=== PATIENT | female | born 1940 | race Caucasian/White ===

== ENCOUNTER 2017-02-10 12:46 | Inpatient (IN) ==
[2017-02-10] MEDS ORDERED: SODIUM CHLORIDE 0.9% 500 ML IV STA (13:01)
[2017-02-10] MEDS ORDERED: ONDANSETRON 4 MG/2 ML VIAL IV PRN (13:01)
[2017-02-10] MEDS ORDERED: ENOXAPARIN 60 MG/0.6 ML SYRINGE SUBCUT STA (13:06)
[2017-02-10] MEDS ORDERED: ASPIRIN 325 MG TABLET PO STA (13:06)
--- NOTE | 2017-02-10 13:13 | Emergency Department Note ---
Arnie Mcwilliams Brittany, am scribing for, and in the presence of, Dawit Nassar MD 13:07. Maday Mcwilliams James D, MD, personally performed the services described in this documentation, ascribed by Faye Gaitan in my presence, and it is both accurate and complete 311 . Arrival - Arrival Chief Complaint: Neuro Stated Complaint: Slurred speech ED Nursing Triage Note: Pt states that she started having some slurred speech and facial droop onset last night - pt states that it only lasted a few min and then started sgain this am - pt states that the s/s only lasted few minutes - pt states that she feels back to her normal self -pt denies weakness Mode of Arrival: Stretcher Limitations: No Limitations Source: Patient, RN Notes Reviewed Time Seen by Provider: 02/10/17 13:01 - History of Present Illness HPI Narrative: Patient is a 76 y/o female presenting to the ED by EMS for further evaluation of slurred speech and facial droop with an onset of last night. Patient reports that she has had two episodes of symptoms. Once last night lasting momentarily, and resolved. Occurred once again this morning, occurring only for a moment again, and resolved again. As of now patient feels back to her norm. She denies having any associated weakness through duration of episodes. She states that this morning she was on the couch and began to have dysphasia, but has now resolved . Reports having difficulty recalling total episode. Daughter states patient stood up and was about to say something, and had difficulty. Daughter reports patient is back to her baseline now. Current everyday smoker of a pack/ day. Contract Mail Carrier is Dr. Piña. Patient denies any melena or hematochezia. Patient is currently on Plavix. History of severe headaches, not at current. Patient has a past medical history of CHF, CAD, HTN, [place], PVD, [place], COPD, Dyslipidemia, COPD, Acute Renal Failure, Recurrent UTIs, GI Bleed Date of Last Menstrual Period: hyster Allergies/Adverse Reactions: Allergies Allergy/AdvReac Type Severity Reaction Status Date / Time codeine AdvReac Nausea Verified 05/25/16 15:58 Home Medications: Home Medications Medication Instructions Recorded Confirmed Type Escitalopram [Lexapro] 10 mg PO DAILY 05/08/16 10/04/16 History Ferrous Sulfate, Dried [Iron] 325 mg PO QOTHER DAY 05/08/16 10/05/16 History Isosorbide Mononitrate [Isosorbide 60 mg PO QOTHER DAY 05/08/16 10/04/16 History Mononitrate ER] Loratadine [Claritin] 10 mg PO QOTHER DAY 05/08/16 10/04/16 History Ranolazine [Ranexa] 500 mg PO BID 05/08/16 10/04/16 History Furosemide Tab [Lasix Tab] 20 mg PO BID tablet 05/28/16 10/04/16 Rx Pantoprazole Tab [Protonix Tab] 40 mg PO BID #60 tablet 05/28/16 10/04/16 Rx Polyethylene Glycol Powder 17 gm PO DAILY powder 05/28/16 10/05/16 Rx [Miralax] Potassium Chloride 10 meq PO DAILY #30 capsule 05/28/16 10/04/16 Rx Spironolactone [Aldactone] 12.5 mg PO DAILY tablet 05/28/16 10/05/16 Rx Atorvastatin Calcium 80 mg PO DAILY 10/04/16 10/04/16 History Carvedilol [Coreg] 25 mg PO BID 10/04/16 10/04/16 History Clopidogrel [Plavix] 75 mg PO DAILY 30 Days 10/07/16 Rx Furosemide Tab [Lasix Tab] 40 mg PO DAILY 30 Days 10/07/16 Rx Lisinopril [Prinivil] 2.5 mg PO DAILY 30 Days 10/07/16 Rx Review of System - Review of System 12 point system: reviewed and no additional remarkable complaints except as stated - Review of System Neurological: Present: as per HPI (dysphasia). Absent: weakness, numbness, paresthesias, confusion Medical,Surgical,& Family Hx - Medical History Cardio: History of: CHF, CAD, Hypertension, SD, PVD, Cardiovascular Problems ( pvd) Psychological: History of: Anxiety Disorders, Depression Neurology: History of: Dementia, Vertigo No history of: Seizures HEENT: History of: Ear Problem ([place]BILOXI), Eye Problem (laser surgery 3 months ago) Endocrine: History of: Dyslipidemia, Thyroid Disorder Respiratory: History of: COPD Renal: History of: Renal Failure (acute) Genitourinary: History of: Recurring Urinary Tract Infections Gastrointestinal: History of: Gastrointestinal Bleed, GI Problems (umbilical hernia) Musculoskeletal: History of: Back/Neck Problems (chronic lower back pain), Osteoporosis - Surgical History Cardiac Surgeries: Sugical HX of: Cardiac Catheterization (stents x5?), Cardiac Surgery (cabg x3) Abdominal Surgeries: Surgical HX of: Cholecystectomy, Colonoscopy, EGD Reproductive Surgeries: Surgical HX of;: Hysterectomy - Family History Family History: Reports;: Family Diabetes, Family Heart Disease - Social History Smoking Status: Never smoker Frequency of Alcohol Use: None Type of Drug Use: None Exam Vital Signs: Vital Signs Temperature 97.3 F L 02/10/17 12:57 Pulse Rate 84 02/10/17 12:57 Respiratory Rate 20 02/10/17 12:57 Blood Pressure 138/81 02/10/17 12:57 O2 Sat by Pulse Oximetry 99 02/10/17 12:52 GENERAL: This is a well-nourished well-developed white female in no apparent distress. VITAL SIGNS: Reviewed HEENT: Head is atraumatic and normocephalic. Pupils are equal round react to light. Extraocular movements are intact. Oropharynx is benign with moist mucous membranes. NECK: Neck is soft and supple without tenderness. There are no masses. There is no lymphadenopathy. No carotid bruit LUNGS: Lungs are clear to auscultation. Chest rises symmetrically. There is no chest wall tenderness. CV: Heart is regular rate and rhythm without murmurs rubs or gallops. ABDOMEN: Abdomen is soft, nontender to palpation. There are no abdominal abnormal masses palpated. There is no organomegaly. Bowel sounds are present and active. SKIN: Skin is warm and dry. No rash. EXTREMITIES: Patient has full range of motion without tenderness. There is no pedal edema. NEUROLOGIC: Awake alert and oriented 4. Cranial nerves II through XII are grossly intact. Motor is 5 over 5 in all extremities bilaterally. Deep tendon reflexes are 2+ and bilaterally equal. Course - Consultations Consultation #1: Discussed with hospitalist. Patient will be admitted to their service. Time: 13:52 Results - Labs CBC & BMP: 02/10/17 13:31 Lab Results: I have reviewed the patients labs - EKG EKG results: interpreted by ERMD - Impressions EKG: Normal sinus rhythm with rate of 70, nonspecific ST-T wave changes, left ventricular hypertrophy. Normal axis. - Diagnostic Findings Procedure: Chest x-ray: image reviewed by me (Old median sternotomy. Mild cardiomegaly, right pleural effusion.), CT: image reviewed by me (CT head: Cerebral atrophy. No acute intracranial lesion or hemorrhage.) Disposition Clinical Impression: TIA (transient ischemic attack), Coronary artery disease Case discussed with: patient, patient's family Disposition: Still a Patient Condition: Stable Time of Disposition: 13:52
[2017-02-10 13:44] LABS: Basophils # 0.1 10*3/uL (0.0-0.2); Basophils % 1.5 % (0.0-0.8); Eosinophils # 0.7 10*3/uL (0.0-0.87); Eosinophils % 16.5 % (0.00-10.9); Hematocrit 36.9 VOL% (35.7-47.0); Hemoglobin 11.8 GM/DL (12.0-16.0); Immature Granulocytes % 0.3 %; Immature Granulocytes Absolute 0.01 #; Lymphocytes # 0.7 10*3/uL (1.4-4.0); Mean Corpuscular Hemoglobin 31 PG (27-34); Mean Corpuscular Volume 96.1 FL (87-102); Mean Platelet Volume 11.7 FL (9.6-12.0); Monocytes # 0.4 10*3/uL (0.11-0.8); Monocytes % 9.2 % (1.7-12.7); Neutrophils # 2.2 10*3/uL (1.4-7.4); Neutrophils % 55.5 % (38.7-73.9); Platelet Count 206 T/CUMM (130-400); Red Blood Count 3.84 MC/CUMM (3.8-5.5); Red Cell Distribution Width 14.3 % (9.3-17.3); White Blood Count 3.9 T/CUMM (4-12)
--- NOTE | 2017-02-10 13:50 | CT Report ---
Referring physician: Dawit Nassar Exam: CT brain without contrast Date: 02/10/2017 Comparison: 05/11/2016 Reason: Hemiparesis Technique: Axial images of the head were obtained without the use of contrast. Total DLP was 1073.1 mGy*cm. Findings: The ventricles remain minimally dilated with no midline displacement. Persistent diffuse atrophy and T2 hyperintensities. There is no evidence of an acute infarction, recent intracranial hemorrhage or abnormal mass effect. The osseous structures appear intact. Residual 14 mm scalp lesion in the left frontal location. Arterial calcifications are noted. The visualized paranasal sinuses are clear. Persistent fluid in the right mastoid air cells. Impression: No acute intracranial abnormality is identified. Diffuse atrophy and microvascular disease. Residual 14 mm scalp lesion in the left frontal location. Persistent nonspecific fluid in right mastoid air cells. The CT exam was performed using one or more of the following dose reduction techniques: Automated exposure control and adjustment of the mA and/or kV according to patient size. PROCEDURE INTERPRETED AT [facility] DEPARTMENT OF RADIOLOGY Final Report Signed by: Dr. Halina Jewell
[2017-02-10] MEDS ORDERED: ONDANSETRON 4 MG/2 ML VIAL ONE (13:56)
[2017-02-10] MEDS ORDERED: ENOXAPARIN 60 MG/0.6 ML SYRINGE ONE (13:56)
[2017-02-10] MEDS ORDERED: ASPIRIN 325 MG TABLET ONE (13:56)
--- NOTE | 2017-02-10 13:56 | XRay Report ---
Exam: XR chest 1V Date: 02/10/2017 1:01 PM Comparison: 10/05/2016 Indication: Cardiomegaly Technique:[AP chest] Findings: Stable cardiomegaly impression prior median sternotomy. Coronary artery stents are noted. Chronic scarring in the lungs with decreased parenchymal findings except that the right lung base with blunting of the right costophrenic angle. Residual atelectasis. Symmetric pleural thickening at the lung apices. Stable mediastinum with degenerative changes. Prior cholecystectomy. Impression: Status post median sternotomy with chronic scarring. Coronary stents are noted with persistent cardiomegaly. Increased density in the right costophrenic angle which can be seen with small right pleural effusion with adjacent minimal atelectasis/edema. PROCEDURE INTERPRETED AT [facility] DEPARTMENT OF RADIOLOGY Final Report Signed by: Dr. Halina Jewell
[2017-02-10 14:00] LABS: PT Patient Result 10.5 SECS; Partial Thromboplastin Time 25.3 SECS (0-40)
[2017-02-10 14:07] LABS: Alanine Aminotransferase 23 U/L (13-56); Albumin 3.4 G/DL (3.4-5.0); Alkaline Phosphatase 280 U/L (45-117); Aspartate Amino Transferase 32 U/L (0-37); Blood Urea Nitrogen 18 MG/DL (7-18); Glucose 99 MG/DL (74-106); Osmolality,Calculated 293.4 MOS/KG (273-304); Potassium 3.9 MMOL/L (3.5-5.1); Sodium 147 MMOL/L (136-145); Troponin I Only 0.774 NG/ML (0.00-0.045)
[2017-02-10] MEDS ORDERED: BISACODYL 5 MG TABLET PO PRN (14:10)
[2017-02-10] MEDS ORDERED: DOCUSATE SODIUM 100 MG CAPSULE PO PRN (14:10)
[2017-02-10] MEDS ORDERED: ACETAMINOPHEN 325 MG TABLET PO PRN (14:10)
[2017-02-10 14:16] LABS: Apearance,Urine CLEAR (Clear); Bacteria,Urine Occasional /HPF (Few); Bilirubin,Urine Negative (Negative); Blood, Urine Negative (Negative); Glucose,Urine (UA) Negative (Negative); Hyaline Casts,Urine 1 /LPF (0-3); Ketones,Urine Negative (Negative); Nitrite,Urine Negative (Negative); Protein,Urine Negative; Squamous Epithelial Cell,Urine Occasional /HPF (0-10); Urine Color Straw (Yellow); Urine Specific Gravity 1.004 (1.001-1.035); Urine Urobilinogen < 2.0 EU/DL (0.2-1.0)
--- NOTE | 2017-02-10 14:24 | Ultrasound Report ---
Exam: Carotid ultrasound Date: 02/10/2017 Comparison: None Technique: Duplex scans of the carotid and vertebral arteries using B-mode/Villafuerte scale imaging and Doppler spectral analysis and color flow. Reason: TIA Findings: The right ICA measures 6.1 mm in diameter and the left ICA measures 4.8 mm in diameter. Color-flow documented in the visualized arteries. The peak systolic velocities are as follows: Right CCA: 59.9 cm/s Right ICA: 45.6 cm/s Right ECA: 133.1 cm/s Left CCA: 42.4 cm/s Left ICA: 90.7 cm/s Left ECA: 63.2 cm/s The peak systolic ICA/CCA velocity ratios are as follows: 0.8 on the right and 2.2 on the left. Antegrade flow is present in both vertebral arteries. Impression:[Velocity measurements fall within the less than 50% stenosis range in both internal carotid arteries with heterogeneous plaque formation. However the left ICA/CCA ratio is minimally elevated which indicates that this stenosis may be more critical. MRA may be helpful for further evaluation.] The Society of Radiologists in Ultrasound consensus conference criteria was used. The Ultrasound images were captured and stored. PROCEDURE INTERPRETED AT [facility] DEPARTMENT OF RADIOLOGY Final Report Signed by: Dr. Halina Jewell
[2017-02-10 14:35] LABS: Barbiturates Screen,Urine Negative (Negative); Benzodiazepines Screen,Urine Negative (Negative); Cannabinoid Screen,Urine Negative (Negative); Opiate Screen,Urine Negative (Negative); Phencyclidine Screen,Urine Negative (Negative)
[2017-02-10 14:36] LABS: Risk Ratio 2.84; VLDL CHOLESTEROL 23.4 MG/DL
--- NOTE | 2017-02-10 14:36 | EKG Report ---
Stationary ECG Study [facility] ER Test Date: 02/10/2017 1:00:14 PM Pat Name: PAUL MENDOZA Department: Room: Gender: F Director Learning And Development: : 1940 Requested by: Dawit Mauro Order Number: [id number] Reading MD: FABIENNE CASTILLO Intervals Ducor Rate: 70 P: 47 IL: 187 QRS: 49 QRSD: 104 T: 121 QT: 427 QTc: 448 Interpretive Statements SINUS RHYTHM LEFT VENTRICULAR HYPERTROPHY AND ST-T CHANGE Electronically Signed On 02-13-17 11:02:19 CDT by FABIENNE CASTILLO [email or web address]
[2017-02-10 17:01] LABS: Eosinophils 22 % (0-10); Lymphocytes 11 % (20-55); Segmented Neutrophils 60 % (50-85); Total Cells Counted 100
--- NOTE | 2017-02-10 18:22 | Hospitalist History & Physical ---
Assessment and Plan (1) TIA (transient ischemic attack) Status: Acute Assessment and plan: Symptoms resolved before arrival to ER. Will continue to monitor patient. Neuro consult. Routine neuro checks. Ct showed no acute changes. Current Visit: Yes (2) Atrial fibrillation Status: Chronic Assessment and plan: Chronic issue for patient. Pt reported to Dr. Jiménez feelings of "palpitations" . Cardiology consulted for recs of anticoag therapy for this chronic condition. Pt in NSR as of most recent EKG Current Visit: No Qualifiers: History of Present Illness Chief complaint: TIA History of present illness: Ms. Allison is a 76 y/o female presenting to the ED by EMS for further evaluation of slurred speech and facial droop. Patient reports that she has had two episodes of these symptoms. Once last night lasting momentarily, and then resolved. Pt stated that she "thought nothing of it". The second episode was this morning, occurring only for a short moment again while she was watching a TV show. Again,this issue resolved but she also experienced dysphasia, which has now resolved. After this, EMS was called by her grandson. The patient denies having any vision loss or weakness during these episodes. Pt is able to answer questions but does have some intermittent confusion. Daughter was at bedside and reports patient is back to her baseline. History of severe headaches, not at current. Patient has a past medical history of CHF, CAD, HTN, [place], PVD, [place], COPD, Dyslipidemia, COPD, headaches, Acute Renal Failure, Recurrent UTIs, smoking, and GI Bleed. Pt. will be admitted to the hospitalist service for observation. Neuro will be consulted for recs. Plavix to be restarted but asa held because of previous GI bleed. CT revealed no acute changes. Pt. will be monitored. Home Medications Medication Instructions Recorded Confirmed Type Escitalopram [Lexapro] 10 mg PO QAM 05/08/16 02/10/17 History Ferrous Sulfate, Dried [Iron] 325 mg PO QOTHER DAY 05/08/16 02/10/17 History Isosorbide Mononitrate [Isosorbide 60 mg PO QOTHER DAY 05/08/16 02/10/17 History Mononitrate ER] Loratadine [Claritin] 10 mg PO QOTHER DAY 05/08/16 02/10/17 History Ranolazine [Ranexa] 500 mg PO BID 05/08/16 02/10/17 History Atorvastatin Calcium 80 mg PO QAM 10/04/16 02/10/17 History Carvedilol [Coreg] 25 mg PO BID 10/04/16 02/10/17 History Clopidogrel [Plavix] 75 mg PO QAM 02/10/17 02/10/17 History Furosemide Tab [Lasix Tab] 40 mg PO QAM 02/10/17 02/10/17 History Lisinopril [Prinivil] 2.5 mg PO QAM 02/10/17 02/10/17 History Polyethylene Glycol Powder 17 gm PO DAILY PRN 02/10/17 02/10/17 History [Miralax] Potassium Chloride 10 meq PO QAM 02/10/17 02/10/17 History Allergies Allergy/AdvReac Type Severity Reaction Status Date / Time codeine AdvReac Nausea Verified 05/25/16 15:58 Medical,Surgical,& Family Hx - Medical History Cardio: History of: CHF, CAD, Hypertension, [place], PVD, Cardiovascular Problems ( pvd) Psychological: History of: Anxiety Disorders, Depression Neurology: History of: Dementia, Vertigo No history of: Seizures HEENT: History of: Ear Problem ([place]), Eye Problem (laser surgery 3 months ago) Endocrine: History of: Dyslipidemia, Thyroid Disorder Respiratory: History of: COPD Renal: History of: Renal Failure (acute) Genitourinary: History of: Recurring Urinary Tract Infections Gastrointestinal: History of: Gastrointestinal Bleed, GI Problems (umbilical hernia) Musculoskeletal: History of: Back/Neck Problems (chronic lower back pain), Osteoporosis - Surgical History Cardiac Surgeries: Sugical HX of: Cardiac Catheterization (stents x5?), Cardiac Surgery (cabg x3) Abdominal Surgeries: Surgical HX of: Cholecystectomy, Colonoscopy, EGD Reproductive Surgeries: Surgical HX of;: Hysterectomy - Family History Family History: Reports;: Family Diabetes, Family Heart Disease - Social History Smoking Status: Former smoker Frequency of Alcohol Use: None Type of Drug Use: None - EENT Eyes: Absent: loss of vision - Gastrointestinal Gastrointestinal: Absent: abdominal pain - Genitourinary Genitourinary: Absent: difficulty urinating - Neurological Neurological: Present: as per HPI, abnormal speech (pt reports slight slur of speech at home ), numbness (pt reported being unable to talk this am.) Exam - Constitutional Vitals: Period Temp Pulse Resp BP Sys/Kumar Pulse Ox Last 24 Hr 97.2 F 59-68 18-20 115-137/58-80 100-100 General appearance: normal weight, no acute distress - Head Head exam: Present: normal inspection, normocephalic - Eye Pupils: Present: MIMI - Respiratory Respiratory exam: Present: clear to auscultation bilaterally - Cardiovascular Cardiovascular exam: Present: regular rate and rhythm - GI/Abdominal GI/Abdominal exam: Present: normal bowel sounds, soft. Absent: tenderness - Extremities Exam Extremities exam: Present: normal inspection, normal capillary refill, full ROM - Neurological Exam Neurological exam: Present: alert, oriented X3 (intermittent confusion), other ( pt has trouble answering some questions; intermittent confusion but mostly alert ) - Psychiatric Psychiatric exam: Present: normal affect, normal mood - Skin Skin exam: Present: normal color, warm, dry Results - Labs CBC & BMP: 02/10/17 13:31 02/10/17 13:31 Lab Results: I have reviewed the past 24 hour labs - EKG EKG shows: sinus rhythm - Diagnostic Findings Procedure: CT: report reviewed by me (no acute changes) Quality Measures - Stroke Symptom Onset Unknown: No
--- NOTE | 2017-02-10 19:42 | ECHO Report ---
Malina Allison Exam Date: 02/10/2017 14:34 Referring Physician: Technologist: Johanna MACKAY Age: 76 Ht (in): Wt (lb): Gender: F Exam Location: [facility] Echo Indications: TIA, slurred speech BP: / HR: Rhythm: Sinus Technical Quality: IMPRESSIONS Moderately decreased left ventricular systolic function, left ventricular ejection fraction is estimated at 35-40%. Bilateral atrial enlargement.Mildly thickened mitral valve with mild mitral regurgitation. Mild aortic valve sclerosis without stenosis. Mild tricuspid valve regurgitation. MEASUREMENTS (Male / Female) Normal Values 2D ECHO LV Diastolic Diameter PLAX 5.0 cm 4.2 - 5.9 / 3.9 - 5.3 cm LV Systolic Diameter PLAX 3.9 cm LV Fractional Shortening PLAX 21.3 % IVS Diastolic Thickness 1.5 cm 0.6 - 1.0 / 0.6 - 0.9 cm LVPW Diastolic Thickness 1.3 cm 0.6 - 1.0 / 0.6 - 0.9 cm RV Internal Dim ED PLAX 2.0 cm Aortic Root Diameter 2.5 cm LA Systolic Diameter LX 4.3 cm 3.0 - 4.0 / 2.7 - 3.8 cm DOPPLER TR Peak Velocity 217.0 cm/s TR Peak Gradient 18.8 mmHg FINDINGS Left Ventricle Moderately decreased left ventricular systolic function, left ventricular ejection fraction is estimated at 35-40%. Right Ventricle Grossly normal right ventricular size. Right Atrium The right atrium is mildly enlarged. Left Atrium Moderately increased left atrial diameter. Mitral Valve Mildly thickened mitral valve with mild mitral regurgitation. Aortic Valve Mild aortic valve sclerosis without stenosis. Tricuspid Valve Morphologically normal tricuspid valve. Mild tricuspid valve regurgitation. Pulmonic Valve Morphologically normal pulmonic valve. Pericardium No pericardial effusion. Aorta Normal size aortic root and proximal ascending aorta. Sal Carlos (Electronically Signed) Final Date: 10 February 2017 19:41
[2017-02-11 04:53] LABS: Basophils % 1.1 % (0.0-0.8); Eosinophils # 0.5 10*3/uL (0.0-0.87); Eosinophils % 13.2 % (0.00-10.9); Hematocrit 33.2 VOL% (35.7-47.0); Hemoglobin 10.3 GM/DL (12.0-16.0); Lymphocytes # 0.6 10*3/uL (1.4-4.0); Mean Corpuscular Hemoglobin 30 PG (27-34); Monocytes # 0.4 10*3/uL (0.11-0.8); Monocytes % 9.8 % (1.7-12.7); Neutrophils # 2.3 10*3/uL (1.4-7.4); Neutrophils % 60.9 % (38.7-73.9); Platelet Count 148 T/CUMM (130-400); Red Blood Count 3.46 MC/CUMM (3.8-5.5); Red Cell Distribution Width 14.2 % (9.3-17.3); White Blood Count 3.8 T/CUMM (4-12)
[2017-02-11 05:21] LABS: Calcium 8.4 MG/DL (8.5-10.1); Magnesium 2.2 MG/DL (1.8-2.4); Osmolality,Calculated 294.3 MOS/KG (273-304); Potassium 3.4 MMOL/L (3.5-5.1)
[2017-02-11 05:25] LABS: Albumin 2.8 G/DL (3.4-5.0); Bilirubin,Total 1.3 MG/DL (0.2-1.0); Calcium 8.3 MG/DL (8.5-10.1); Osmolality,Calculated 296.1 MOS/KG (273-304); Potassium 3.5 MMOL/L (3.5-5.1); Total Protein 5.9 G/DL (6.4-8.3)
[2017-02-11 05:40] LABS: Eosinophils 13 % (0-10); Hypochromasia 1+; Lymphocytes 14 % (20-55); Metamyelocytes 1 %; Platelet Estimate Decreased; Segmented Neutrophils 63 % (50-85); Total Cells Counted 100
[2017-02-11] MEDS: PANTOPRAZOLE 40 MG TABLET PO SCH (08:45)
[2017-02-11] MEDS: CLOPIDOGREL 75 MG TABLET PO SCH (08:45)
--- NOTE | 2017-02-11 12:11 | Cardiology Consult Note ---
<Kassandra Babb - Last Filed: 02/11/17 13:00> Assessment and Plan - Time spent with patient Time spent with patient: Greater than 30 minutes (1) TIA (transient ischemic attack) Status: Acute Assessment and plan: Facial droop and slurred speech have resolved. Head CT did not reveal any acute intracranial findings. Neurology has been consulted. Current Visit: Yes (2) Atrial fibrillation Status: Chronic Assessment and plan: Patient has a history of atrial fibrillation. This was first diagnosed in September 2016. At that time, patient was on a candidate for anticoagulation due to recent history of severe GI bleed in April 2016. Hemoglobin at that time was noted to be 3.8. Patient reports having episodes of palpitations/heart racing presently 2 times a week and it appears that she has had a TIA. Because of this, patient will need chronic anticoagulation with Coumadin or NOAC. Will need to monitor patient's H&H closely. Will await neurology's recommendations. Current Visit: No (3) Coronary artery disease Status: Chronic Current Visit: Yes (4) Cardiomyopathy, ischemic Status: Chronic Assessment and plan: Echo yesterday revealed moderately decreased left ventricular systolic function with ejection fraction estimated at 35-40%. Bilateral atrial enlargement noted with mild MR. This has improved since patient's last echocardiogram September 2016 which revealed LVEF 25%, grade 3-4 diastolic dysfunction. Current Visit: No (5) Chronic renal insufficiency, stage III (moderate) Status: Chronic Assessment and plan: Creatinine is 1.3. This appears to be patient's baseline. Current Visit: No (6) History of coronary artery bypass graft Status: Chronic Current Visit: No (7) Peptic ulcer disease with hemorrhage Status: Chronic Assessment and plan: H&H has been stable this admission. We will continue to monitor this closely. Current Visit: No (8) Hypertension Status: Acute Assessment and plan: This is been relatively well controlled this admission. No need to adjust medications at this time. Current Visit: Yes History of Present Illness - Data of Consult Patient: known to practice within the last 3 years Consult date: 02/11/17 Requesting Physician: Elizabeth Johnson - Consult Narrative Reason for consult: Management of anticoagulation History of present illness: Ms. Allison is a 75 year old female who is usually followed by Dr. Mcclendon. Her primary care provider is Dr. Duran Eid. She presented to the ER yesterday with facial droop and slurred speech. She has a history of coronary artery disease, status post CABG, ischemic cardiomyopathy, GERD, hyperlipidemia , paroxysmal atrial fibrillation, GI bleeds from an ulcer and hypertension. Patient's most recent stent was placed approximately 2 years ago. Patient was admitted to the hospital in May 2016 with GI bleeding from multiple peptic ulcers. During interview, patient reports having multiple episodes of GI bleeding requiring blood transfusion in the past. Hemoglobin of 3.8 was noted. At that time patient was taking multiple nonsteroidals. It does not appear that she was on chronic anticoagulation at that time. Patient was also admitted September 2016 and diagnosed with an NSTEMI and new onset atrial fibrillation. At that time, NSTEMI was medically managed. Plavix was initiated and aspirin was discontinued due to fear of GI bleed. Ranexa was also initiated. Patient was not a candidate for NOAC or coumadin at that time due to recent GI bleeding requiring blood transfusion. Patient was admitted to [facility] with possible TIA after experiencing facial droop and slurred speech yesterday. She tells me that this lasted approximately 15-[address] revealed no acute intracranial abnormality. Carotid ultrasound reveals less than 50% stenosis bilaterally. Patient denies any chest pain, heaviness and tightness. She also denies shortness of breath, diaphoresis and nausea. Patient was admitted under hospitalist's service and housed on telemetry. Cardiology has been consulted for recommendations on anticoagulation for paroxysmal atrial fibrillation. Of note, patient confirms episodes of palpitations/heart racing at least 2 times a week. She reports that these usually last 5-20 minutes and usually go away with rest. Patient was seen and examined on telemetry. She is currently resting in bed in no acute distress. Not requiring oxygen. Facial droop and slurred speech has fully resolved. No weakness is noted. Neurology has been consulted to further evaluate TIA. Patient denies any palpitations/heart racing this admission. H& H is stable this admission at 10.3 and 33.2. Creatinine is mildly elevated at 1.3. Potassium of 3.4 is noted, will order replacement protocol. Magnesium is stable at 2.2. Telemetry has been reviewed. No episodes of atrial fibrillation have been noted. Patient is currently in a normal sinus rhythm with heart rates in the 60s without any overt arrhythmias or ectopy noted. EKG does not reveal any acute changes when compared to previous EKGs. Will continue to monitor patient on telemetry. Patient will need chronic anticoagulation with Coumadin or NOAC. Will need to monitor patient's H&H closely. Will await neurology's recommendations. Echo yesterday revealed moderately decreased left ventricular systolic function with ejection fraction estimated at 35-40%. Bilateral atrial enlargement noted with mild MR. Active Medications Acetaminophen (Tylenol Tab) 650 mg PO Q4H PRN PRN Reason: Fever, Headache, Mild Pain Bisacodyl (Dulcolax Tab) 10 mg PO DAILY PRN PRN Reason: Constipation Clopidogrel Bisulfate (Plavix) 75 mg PO DAILY [facility] Last Admin: 02/11/17 08:45 Dose: 75 mg Docusate Sodium (Colace Cap) 100 mg PO BID PRN PRN Reason: Constipation Ondansetron HCl (Zofran Inj) 4 mg IV Q6H PRN PRN Reason: Nausea/Vomiting Last Admin: 02/10/17 14:29 Dose: 4 mg Pantoprazole Sodium (Protonix Tab) 40 mg PO DAILY [facility] Last Admin: 02/11/17 08:45 Dose: 40 mg Potassium Chloride (K Dur) 20 meq PO .PER PROTOCOL PRN; Protocol PRN Reason: Per Protocol CC: Tal Jiménez MD - Home Medications and Allergies Home Medications: Home Medications Medication Instructions Recorded Confirmed Type Escitalopram [Lexapro] 10 mg PO QAM 05/08/16 02/10/17 History Ferrous Sulfate, Dried [Iron] 325 mg PO QOTHER DAY 05/08/16 02/10/17 History Isosorbide Mononitrate [Isosorbide 60 mg PO QOTHER DAY 05/08/16 02/10/17 History Mononitrate ER] Loratadine [Claritin] 10 mg PO QOTHER DAY 05/08/16 02/10/17 History Ranolazine [Ranexa] 500 mg PO BID 05/08/16 02/10/17 History Atorvastatin Calcium 80 mg PO QAM 10/04/16 02/10/17 History Carvedilol [Coreg] 25 mg PO BID 10/04/16 02/10/17 History Clopidogrel [Plavix] 75 mg PO QAM 02/10/17 02/10/17 History Furosemide Tab [Lasix Tab] 40 mg PO QAM 02/10/17 02/10/17 History Lisinopril [Prinivil] 2.5 mg PO QAM 02/10/17 02/10/17 History Polyethylene Glycol Powder 17 gm PO DAILY PRN 02/10/17 02/10/17 History [Miralax] Potassium Chloride 10 meq PO QAM 02/10/17 02/10/17 History Allergies/Adverse Reactions: Allergies Allergy/AdvReac Type Severity Reaction Status Date / Time codeine AdvReac Nausea Verified 05/25/16 15:58 - Constitutional Constitutional: Absent: chills, fatigue, fever(s), frequent falls, lethargy, malaise - Cardiovascular Cardiovascular: Present: as per HPI, palpitations. Absent: chest pain at rest, chest pain with activity, diaphoresis, dyspnea, edema, radiating jaw, neck or arm pain - Respiratory Respiratory: Absent: cough, dyspnea, pain on inspiration, change in phlegm color - Gastrointestinal Gastrointestinal: Absent: abdominal pain, change in bowel habits, coffee ground emesis, constipation, cramping, diarrhea, heartburn, hematemesis, hematochezia, loose stools, nausea, vomiting - Neurological Neurological: Present: abnormal speech, behavioral changes, other (Facial droop) . Absent: syncope Medical,Surgical,& Family Hx - Medical History Cardio: History of: Cardiac Dysrhythmia, CHF, CAD, Hypertension, [place] Psychological: History of: Anxiety Disorders, Depression Neurology: History of: Dementia, Vertigo No history of: Seizures HEENT: History of: Ear Problem ([place]), Eye Problem (laser surgery 3 months ago) Endocrine: History of: Dyslipidemia Respiratory: History of: COPD Renal: History of: Renal Failure (Renal insufficiency) Genitourinary: History of: Recurring Urinary Tract Infections Gastrointestinal: History of: Gastrointestinal Bleed, GI Problems (umbilical hernia) Musculoskeletal: History of: Back/Neck Problems (chronic lower back pain), Osteoporosis - Surgical History Cardiac Surgeries: Sugical HX of: Cardiac Catheterization (stents x5?), Cardiac Surgery (cabg x3) Abdominal Surgeries: Surgical HX of: Cholecystectomy, Colonoscopy, EGD Reproductive Surgeries: Surgical HX of;: Hysterectomy - Family History Family History: Reports;: Family Diabetes Denies;: Family Heart Disease - Social History Smoking Status: Current every day smoker Frequency of Alcohol Use: None Type of Drug Use: None Physical Examination Vital Signs Temp Pulse Resp BP Pulse Ox 97.3 F L 84 20 138/81 99 02/10/17 12:52 02/10/17 12:52 02/10/17 12:52 02/10/17 12:52 02/10/17 12:52 General: Present: Appears Well, No Apparent Distress HEENT: Present: Normocephaly Neck: Present: Supple Neck, Midline Trachea, No JVD/HJR, No Masses, No Bruit Cardiac: Present: Reg Rate and Rhythm, Regular Rate, Regular Rhythm, S1/S2, No Murmur. Absent: Gallop Lungs: Present: Normal Exam, Clear Ascult./Percussion, Normal Breath Sounds, No Wheeze, Rales, Rhonchi. Absent: Oxygen Neuro: Present: Grossly Intact Abdomen: Present: Soft, Active Bowel Sounds, No Masses, No Pulsations/Bruits, Non-Tender. Absent: Firm, Distended Skin: Present: Clear. Absent: Rash, Suspicious Lesions, Ulceration Extremities: Present: Normal Gait, No Clubbing, No Cyanosis, No Edema, Normal Upper Extr. Pulses, Other ( lower extremity pulses 1+) Result/EKG - Labs CBC & BMP: 02/11/17 04:28 02/11/17 04:28 Lab Results: I have reviewed the past 24 hour labs Labs: Laboratory Results - last 24 hr 02/10/17 02/10/17 02/11/17 16:34 19:56 04:28 WBC 3.8 L RBC 3.46 L Hgb 10.3 L Hct 33.2 L MCV 96.0 MCH 30 MCHC 31.0 L RDW 14.2 Plt Count 148 D MPV 12.0 Neut % (Auto) 60.9 Lymph % (Auto) 15.0 L [place] % (Auto) 9.8 Eos % (Auto) 13.2 H Baso % (Auto) 1.1 H Neut # (Auto) 2.3 Lymph # (Auto) 0.6 L [place] # (Auto) 0.4 Eos # (Auto) 0.5 Baso # (Auto) 0.0 Total Counted 100 Immature Gran % 0.0 Nucleated RBC % 0.0 Immature Gran # 0.00 Segmented Neutrophils 63 Lymphocytes 14 L Monocytes 9 Eosinophils 13 H Metamyelocytes 1 Nucleated RBCs # 0.00 Platelet Estimate Decreased Hypochromasia 1+ Sodium Potassium Chloride Carbon Dioxide Anion Gap BUN Creatinine GFR Calculation BUN/Creatinine Ratio Glucose Calculated Osmolality Calcium Magnesium Total Bilirubin AST ALT Alkaline Phosphatase Troponin I 0.640 H 0.503 H D Total Protein Albumin Globulin Albumin/Globulin Ratio 02/11/17 02/11/17 04:28 04:28 WBC RBC Hgb Hct MCV MCH MCHC RDW Plt Count MPV Neut % (Auto) Lymph % (Auto) [place] % (Auto) Eos % (Auto) Baso % (Auto) Neut # (Auto) Lymph # (Auto) [place] # (Auto) Eos # (Auto) Baso # (Auto) Total Counted Immature Gran % Nucleated RBC % Immature Gran # Segmented Neutrophils Lymphocytes Monocytes Eosinophils Metamyelocytes Nucleated RBCs # Platelet Estimate Hypochromasia Sodium 149 H 148 H Potassium 3.5 3.4 L Chloride 111 H 111 H Carbon Dioxide 27 28 Anion Gap 14.5 12.4 BUN 18 19 H Creatinine 1.30 H 1.30 H GFR Calculation 35 35 BUN/Creatinine Ratio 13.00 14.00 Glucose 88 89 Calculated Osmolality 296.1 294.3 Calcium 8.3 L 8.4 L Magnesium 2.2 Total Bilirubin 1.30 H AST 34 ALT 21 Alkaline Phosphatase 232 H Troponin I Total Protein 5.9 L Albumin 2.8 L Globulin 3.1 Albumin/Globulin Ratio 0.9 L Quality Measures - Stroke Symptom Onset Unknown: No <Sal Carlos - Last Filed: 02/11/17 14:21> History of Present Illness - Consult Narrative History of present illness: I have seen, interviewed, examined the patient and reviewed his chart and discussed the case with the mid-level provider and agree with the plan as outlined in the note. CC: Tal Jiménez MD 12 point system: reviewed and no additional remarkable complaints except as stated Physical Examination Vital Signs Temp Pulse Resp BP Pulse Ox 97.3 F L 84 20 138/81 99 02/10/17 12:52 02/10/17 12:52 02/10/17 12:52 02/10/17 12:52 02/10/17 12:52 Result/EKG - Labs CBC & BMP: 02/11/17 04:28 02/11/17 04:28 Lab Results: I have reviewed the past 24 hour labs Labs: Laboratory Results - last 24 hr 02/10/17 02/10/17 02/11/17 16:34 19:56 04:28 WBC 3.8 L RBC 3.46 L Hgb 10.3 L Hct 33.2 L MCV 96.0 MCH 30 MCHC 31.0 L RDW 14.2 Plt Count 148 D MPV 12.0 Neut % (Auto) 60.9 Lymph % (Auto) 15.0 L [place] % (Auto) 9.8 Eos % (Auto) 13.2 H Baso % (Auto) 1.1 H Neut # (Auto) 2.3 Lymph # (Auto) 0.6 L [place] # (Auto) 0.4 Eos # (Auto) 0.5 Baso # (Auto) 0.0 Total Counted 100 Immature Gran % 0.0 Nucleated RBC % 0.0 Immature Gran # 0.00 Segmented Neutrophils 63 Lymphocytes 14 L Monocytes 9 Eosinophils 13 H Metamyelocytes 1 Nucleated RBCs # 0.00 Platelet Estimate Decreased Hypochromasia 1+ Sodium Potassium Chloride Carbon Dioxide Anion Gap BUN Creatinine GFR Calculation BUN/Creatinine Ratio Glucose Calculated Osmolality Calcium Magnesium Total Bilirubin AST ALT Alkaline Phosphatase Troponin I 0.640 H 0.503 H D Total Protein Albumin Globulin Albumin/Globulin Ratio 02/11/17 02/11/17 04:28 04:28 WBC RBC Hgb Hct MCV MCH MCHC RDW Plt Count MPV Neut % (Auto) Lymph % (Auto) [place] % (Auto) Eos % (Auto) Baso % (Auto) Neut # (Auto) Lymph # (Auto) [place] # (Auto) Eos # (Auto) Baso # (Auto) Total Counted Immature Gran % Nucleated RBC % Immature Gran # Segmented Neutrophils Lymphocytes Monocytes Eosinophils Metamyelocytes Nucleated RBCs # Platelet Estimate Hypochromasia Sodium 149 H 148 H Potassium 3.5 3.4 L Chloride 111 H 111 H Carbon Dioxide 27 28 Anion Gap 14.5 12.4 BUN 18 19 H Creatinine 1.30 H 1.30 H GFR Calculation 35 35 BUN/Creatinine Ratio 13.00 14.00 Glucose 88 89 Calculated Osmolality 296.1 294.3 Calcium 8.3 L 8.4 L Magnesium 2.2 Total Bilirubin 1.30 H AST 34 ALT 21 Alkaline Phosphatase 232 H Troponin I Total Protein 5.9 L Albumin 2.8 L Globulin 3.1 Albumin/Globulin Ratio 0.9 L - EKG EKG results: interpreted by me
--- NOTE | 2017-02-11 12:27 | Hospitalist Progress Note ---
Assessment and Plan - Time spent with patient Time spent with patient: Less than 30 minutes (1) TIA (transient ischemic attack) Status: Acute Assessment and plan: Symptoms resolved. Follow Cardiology recommendation regarding treatment with anti coagulation for patient's paroxysmal atrial fibrillation. Await Neurology recommendations too. reviewed the results of imaging. Patient will probably be discharged tomorrow. Added high-intensity statin. Continue with Plavix for now. Current Visit: Yes (2) Elevated serum creatinine Status: Acute Assessment and plan: Likely acute kidney injury. Placed patient on gentle hydration intravenously. Current Visit: Yes (3) Hypertension Status: Acute Assessment and plan: Blood pressures are fairly controlled. Monitor. Current Visit: Yes (4) Coronary artery disease Status: Chronic Assessment and plan: Continue patient on chronic medications. Continue with Plavix and I added Lipitor. Current Visit: Yes (5) Hypernatremia Status: Acute Assessment and plan: Started patient on a gentle hypotonic fluid. Current Visit: Yes Hospitalist: Subjective Interval history: Patient had presented with slurred speech and loss of nasolabial fold on the left which lasted only [address] head negative for acute issues. She was admitted with transient ischemic attack with the ABCD2 score of at least 4. I have reviewed recommendations by Cardiology. Neurology yet to see Patient was seen and examined today. She denied having any chest pain, shortness of breath, fever or chills. She no longer had slurred speech since admission and no drooping of the left face on admission. No tingling, numbness or weakness of any part of the body. Denied palpitations. Exam - Constitutional Vitals: Period Temp Pulse Resp BP Sys/Kumar Pulse Ox Last 24 Hr 96.6 F-97.9 F 59-70 16-20 115-140/55-80 97-100 General appearance: normal weight - Head Head exam: Present: normocephalic, atraumatic - Eye Eye exam: Present: EOMI Pupils: Present: MIMI - Neck Neck exam: Absent: lymphadenopathy, thyromegaly - Respiratory Respiratory exam: Present: clear to auscultation bilaterally - Cardiovascular Cardiovascular exam: Absent: diastolic murmur, JVD, systolic murmur - GI/Abdominal GI/Abdominal exam: Present: normal bowel sounds, soft. Absent: mass - Extremities Exam Extremities exam: Present: normal capillary refill. Absent: edema - Neurological Exam Neurological exam: Present: alert, oriented X3. Absent: abnormal gait - Psychiatric Psychiatric exam: Present: normal affect, normal mood - Skin Skin exam: Present: normal color Results - Labs CBC & BMP: 02/11/17 04:28 02/11/17 04:28 Lab Results: I have reviewed the past 24 hour labs Quality Measures - Stroke Symptom Onset Unknown: No Specialty Discharge - Follow Up or Referrals Follow up with: Hernesto Lozada MD [Physician] - 1 Month
[2017-02-11] MEDS ORDERED: POTASSIUM CHLORIDE 20 MEQ TABLET PO PRN (12:32)
[2017-02-11] MEDS: SODIUM CHLORIDE 0.45% 1,000 ML IV SCH (13:52)
--- NOTE | 2017-02-11 16:53 | Neurology Consult Note ---
History of Present Illness History of present illness: Mrs. Allison is a 76-year-old right-handed white lady with past medical history significant for congestive heart failure, coronary artery disease, hypertension , peripheral vascular disease and possibly paroxysmal atrial fibrillation who presented with slurred speech that started around 11:00 a.m. yesterday associated with drooping of the left face. This lasted only 10-15 minutes and resolved. She reported intermittent chest pain in the last few days prior to this event. Her chest pain resolved with nitroglycerin. Patient also has a history of triple bypass according to her with placement of 5 stents at different times with the last 1 placed last year. Patient reported that she quit smoking [address] of the head is unremarkable. Carotid ultrasound is unremarkable. Lipid profile is unremarkable. Echo shows ejection fraction of 35-40%. Home Medications Medication Instructions Recorded Confirmed Type Escitalopram [Lexapro] 10 mg PO QAM 05/08/16 02/10/17 History Ferrous Sulfate, Dried [Iron] 325 mg PO QOTHER DAY 05/08/16 02/10/17 History Isosorbide Mononitrate [Isosorbide 60 mg PO QOTHER DAY 05/08/16 02/10/17 History Mononitrate ER] Loratadine [Claritin] 10 mg PO QOTHER DAY 05/08/16 02/10/17 History Ranolazine [Ranexa] 500 mg PO BID 05/08/16 02/10/17 History Atorvastatin Calcium 80 mg PO QAM 10/04/16 02/10/17 History Carvedilol [Coreg] 25 mg PO BID 10/04/16 02/10/17 History Clopidogrel [Plavix] 75 mg PO QAM 02/10/17 02/10/17 History Furosemide Tab [Lasix Tab] 40 mg PO QAM 02/10/17 02/10/17 History Lisinopril [Prinivil] 2.5 mg PO QAM 02/10/17 02/10/17 History Polyethylene Glycol Powder 17 gm PO DAILY PRN 02/10/17 02/10/17 History [Miralax] Potassium Chloride 10 meq PO QAM 02/10/17 02/10/17 History Allergies Allergy/AdvReac Type Severity Reaction Status Date / Time codeine AdvReac Nausea Verified 05/25/16 15:58 12 point system: reviewed and no additional remarkable complaints except as stated Medical,Surgical,& Family Hx - Medical History Cardio: History of: Cardiac Dysrhythmia, CHF, CAD, Hypertension, [place], PVD, Cardiovascular Problems (pvd) Psychological: History of: Anxiety Disorders, Depression Neurology: History of: Dementia, Vertigo No history of: Seizures HEENT: History of: Ear Problem ([place]), Eye Problem (laser surgery 3 months ago) Endocrine: History of: Dyslipidemia, Thyroid Disorder Respiratory: History of: COPD Renal: History of: Renal Failure (Renal insufficiency) Genitourinary: History of: Recurring Urinary Tract Infections Gastrointestinal: History of: Gastrointestinal Bleed, GI Problems (umbilical hernia) Musculoskeletal: History of: Back/Neck Problems (chronic lower back pain), Osteoporosis - Surgical History Cardiac Surgeries: Sugical HX of: Cardiac Catheterization (stents x5?), Cardiac Surgery (cabg x3) Abdominal Surgeries: Surgical HX of: Cholecystectomy, Colonoscopy, EGD Reproductive Surgeries: Surgical HX of;: Hysterectomy - Family History Family History: Reports;: Family Diabetes Denies;: Family Heart Disease - Social History Smoking Status: Current every day smoker Frequency of Alcohol Use: None Type of Drug Use: None Exam - Constitutional Vitals: Period Temp Pulse Resp BP Sys/Kumar Pulse Ox Last 24 Hr 96.6 F-97.9 F 63-70 16-20 120-140/55-64 97-99 Exam: GENERAL: Patient is in no acute distress. NECK: Neck is supple. There is no JVD. No carotid bruits present. No thyroid masses. CVS: First and second heart sounds are normal. There is no S3 present. Regular rate and rhythm. RESPIRATORY: Lungs are clear to auscultation without any rales or rhonchi. ABDOMEN: Soft and non-tender. Bowel sounds are present. There is no hepatosplenomegaly. EXT: There is no palpable edema. Peripheral pulses are present. Skin: No rashes Central Nervous system: General: Alert, awake and Oriented x 3 Speech: Fluent Comprehension: Intact and normal Facial expressions: Normal Cranial Nerves: CN1/Olfactory: Normal CN II/ Optic: Normal, Visual Dubois unreliable CN III, and : MIMI & EOMI CN V: Normal & intact CN VII: face is symmetric CNVIII: Normal CN XI/X/XI/XII: Intact and Normal Motor: Bulk and Tone is normal. Strength in the right 5/5 Strength in the left 5/5 Sensory: Grossly intact for all the modalities of PP, LT and temp sense Reflexes: 1+ and symmetrical Cerebellar function: Normal finger to nose and heel to pina testing. Gait: Normal heel to heel and toe to toe and tandem walk. Results - Labs CBC & BMP: 02/11/17 04:28 02/11/17 04:28 Assessment and Plan (1) TIA (transient ischemic attack) Status: Acute Assessment and plan: Continue Plavix Add Eliquis 2.5 mg twice a day Follow-up in 4 weeks Current Visit: Yes Specialty Discharge - Follow Up or Referrals Follow up with: Hernesto Lozada MD [Physician] - 1 Month
[2017-02-11] MEDS: APIXABAN 2.5 MG TABLET PO SCH (21:37)
[2017-02-11] MEDS ORDERED: ATORVASTATIN 40 MG TABLET PO SCH (22:30)
[2017-02-12] MEDS: SODIUM CHLORIDE 0.45% 1,000 ML IV SCH (02:40)
[2017-02-12 06:19] LABS: Eosinophils # 0.5 10*3/uL (0.0-0.87); Eosinophils % 13.7 % (0.00-10.9); Hematocrit 32.1 VOL% (35.7-47.0); Hemoglobin 10.2 GM/DL (12.0-16.0); Immature Granulocytes % 0.3 %; Immature Granulocytes Absolute 0.01 #; Lymphocytes # 0.7 10*3/uL (1.4-4.0); Mean Corpuscular HGB Conc 31.8 GM/DL (32-36); Mean Corpuscular Hemoglobin 30 PG (27-34); Mean Corpuscular Volume 95.5 FL (87-102); Mean Platelet Volume 12.1 FL (9.6-12.0); Monocytes # 0.4 10*3/uL (0.11-0.8); Monocytes % 10.6 % (1.7-12.7); Neutrophils # 2.3 10*3/uL (1.4-7.4); Neutrophils % 57.4 % (38.7-73.9); Platelet Count 151 T/CUMM (130-400); Red Blood Count 3.36 MC/CUMM (3.8-5.5); Red Cell Distribution Width 14.2 % (9.3-17.3)
[2017-02-12 06:51] LABS: Eosinophils 16 % (0-10); Hypochromasia 1+; Lymphocytes 16 % (20-55); Segmented Neutrophils 60 % (50-85); Total Cells Counted 100
[2017-02-12 06:52] LABS: Platelet Estimate Adequate
[2017-02-12 06:57] LABS: Calcium 8.4 MG/DL (8.5-10.1); Magnesium 2.1 MG/DL (1.8-2.4); Osmolality,Calculated 288.7 MOS/KG (273-304)
[2017-02-12] MEDS: CLOPIDOGREL 75 MG TABLET PO SCH (09:26)
[2017-02-12] MEDS: APIXABAN 2.5 MG TABLET PO SCH (09:27)
[2017-02-12] MEDS: PANTOPRAZOLE 40 MG TABLET PO SCH (09:27)
--- NOTE | 2017-02-12 10:35 | Hospitalist Progress Note ---
Assessment and Plan (1) TIA (transient ischemic attack) Status: Acute Assessment and plan: TIA symptoms have resolved. No symptoms reported since admission. Patient is alert and oriented. Seen by neuro and will follow up in 4 weeks. Patient will continue Plavix and Eliquis has been added to her home regimen. Current Visit: Yes (2) Atrial fibrillation Status: Chronic Assessment and plan: Patient is currently in normal sinus rhythm. Eliquis 2.5 mg twice daily will be added to patient's regimen. Patient will follow up with provider if any additional problems arise with this chronic condition. Current Visit: No Qualifiers: Hospitalist: Subjective Interval history: Elizabeth Mcwilliams, [employer]ER, am scribing for, and in the presence of, Dr. Alex Vanegas. Patient seen and examined. No numbness, tingling, weakness or pain assessed. Ms. Allison is doing very well today. Daughter is at bedside. Patient is alert and oriented with stable vital signs. Patient denies any complaints at this time. Patient is ready for discharge. Patient instructed to return to ER if symptoms return. Patient also informed of follow-up with neurology in 4 weeks and addition of Eliquis to drug regimen (per neuro recs) . No questions at this time. Exam - Constitutional Vitals: Period Temp Pulse Resp BP Sys/Kumar Pulse Ox Last 24 Hr 97.0 F-99.4 F 63-75 16-20 120-140/59-76 95-98 General appearance: normal weight, no acute distress - Head Head exam: Present: normal inspection, normocephalic - Eye Eye exam: Present: EOMI - Respiratory Respiratory exam: Present: clear to auscultation bilaterally - GI/Abdominal GI/Abdominal exam: Present: normal bowel sounds, soft. Absent: tenderness - Extremities Exam Extremities exam: Present: normal inspection, normal capillary refill, full ROM - Neurological Exam Neurological exam: Present: alert, oriented X3 - Psychiatric Psychiatric exam: Present: normal affect, normal mood - Skin Skin exam: Present: normal color, warm, dry Results - Labs CBC & BMP: 02/12/17 05:10 02/12/17 05:10 Lab Results: I have reviewed the past 24 hour labs - EKG EKG results: sinus rhythm Quality Measures - Stroke Symptom Onset Unknown: No Specialty Discharge - Follow Up or Referrals Follow up with: Hernesto Lozada MD [Physician] - 1 Month
[2017-02-12 11:46] VITALS: BP 143/63
--- NOTE | 2017-02-12 12:07 | Discharge Summary ---
Hospital Course - Hospital Course Hospital Course: Patient had presented with slurred speech and loss of nasolabial fold on the left which lasted only [address] head negative for acute issues. She was admitted with transient ischemic attack with the ABCD2 score of at least 4. I have reviewed recommendations by Cardiology. Neurology consulted and recommended eliquis. Patient was seen and examined today. She denied having any chest pain, shortness of breath, fever or chills. She no longer had slurred speech since admission and no drooping of the left face on admission. No tingling, numbness or weakness of any part of the body. Denied palpitations. She is being discharged today with a prescription for eliquis and outpt follow up with neurology. carotids with less than 50% stenosis Echo with ef 35-40% Diagnosis - Discharge Diagnosis (1) TIA (transient ischemic attack) Status: Acute (2) Atrial fibrillation Status: Chronic (3) Hypertension Status: Chronic Specialty Discharge - Follow Up or Referrals Follow up with: Hernesto Lozada MD [Physician] - 1 Month Discharge Plan - Discharge Data Disposition: Disch To Home/Self Care Condition at Discharge: Stable Discharge Diet: advance to your usual diet Activity: resume usual activities as tolerated Hygiene: no restrictions Weight Bearing at Discharge: full weight bearing - Discharge Medications New Apixaban [Eliquis] 2.5 mg PO BID #60 tablet Continue Ranolazine [Ranexa] 500 mg PO BID Loratadine [Claritin] 10 mg PO QOTHER DAY Isosorbide Mononitrate [Isosorbide Mononitrate ER] 60 mg PO QOTHER DAY Ferrous Sulfate, Dried [Iron] 325 mg PO QOTHER DAY Escitalopram [Lexapro] 10 mg PO QAM Atorvastatin Calcium 80 mg PO QAM Carvedilol [Coreg] 25 mg PO BID Polyethylene Glycol Powder [Miralax] 17 gm PO DAILY PRN PRN Reason: Constipation Lisinopril [Prinivil] 2.5 mg PO QAM Furosemide Tab [Lasix Tab] 40 mg PO QAM Potassium Chloride 10 meq PO QAM Clopidogrel [Plavix] 75 mg PO QAM - Follow Up or Referral Follow Up: Hernesto Lozada MD [Physician] - 1 Month - Forms/Instructions Exam - Constitutional Vitals: Period Temp Pulse Resp BP Sys/Kumar Pulse Ox Last 24 Hr 97.8 F-99.4 F 67-75 16-20 126-143/60-76 95-98 General appearance: no acute distress - Head Head exam: Present: normal inspection, normocephalic, atraumatic - Eye Eye exam: Present: EOMI Pupils: Present: MIMI - ENT ENT exam: Present: normal exam - Neck Neck exam: Present: normal inspection - Respiratory Respiratory exam: Present: clear to auscultation bilaterally - Cardiovascular Cardiovascular exam: Present: regular rate and rhythm - GI/Abdominal GI/Abdominal exam: Present: normal bowel sounds, soft - Extremities Exam Extremities exam: Absent: edema - Neurological Exam Neurological exam: Present: alert, oriented X3, CN II-XII intact, reflexes normal. Absent: motor sensory deficit - Psychiatric Psychiatric exam: Present: normal affect, normal mood - Skin Skin exam: Present: normal color, warm, dry Discharge Results Labs on day of discharge: Labs from last 24 hours 02/12/17 02/12/17 02/12/17 07:04 05:10 05:10 WBC 4.0 RBC 3.36 L Hgb 10.2 L Hct 32.1 L MCV 95.5 MCH 30 MCHC 31.8 L RDW 14.2 Plt Count 151 MPV 12.1 H Neut % (Auto) 57.4 Lymph % (Auto) 17.0 L [place] % (Auto) 10.6 Eos % (Auto) 13.7 H Baso % (Auto) 1.0 H Neut # (Auto) 2.3 Lymph # (Auto) 0.7 L [place] # (Auto) 0.4 Eos # (Auto) 0.5 Baso # (Auto) 0.0 Total Counted 100 Immature Gran % 0.3 Nucleated RBC % 0.0 Immature Gran # 0.01 Segmented Neutrophils 60 Lymphocytes 16 L Monocytes 8 Eosinophils 16 H Nucleated RBCs # 0.00 Platelet Estimate Adequate Hypochromasia 1+ Sodium 145 Potassium 4.0 Chloride 109 H Carbon Dioxide 24 Anion Gap 16.0 H BUN 16 Creatinine 1.10 H GFR Calculation 43 BUN/Creatinine Ratio 14.00 Glucose 96 POC Glucose 91 Calculated Osmolality 288.7 Calcium 8.4 L Magnesium 2.1 DS: Provider Date of admission: 02/10/17 14:10 Primary care physician: . No PCP Attending physician on admission: Tal Jiménez MD Consults: 02/10/17 14:39 Consult to Pharmacy [CONS] Routine Reason for Pharmacy Consult: Adjust Meds Renal Funct 02/10/17 16:30 Consult to Pastoral Services [CONS] Routine Comment: Pastoral Screen: Request Net Developer With [facility] Visit 02/10/17 18:12 Consult to Physician [CONS] Routine Comment: anticoag therapy; chronic therapy Consulting Provider: Soy Barrera Consult to Specialist Group: Cardiology Person Notified: RACHAEL Date Notified: 02/11/17 Time Notified: 08:15 02/10/17 18:13 Consult to Physician [CONS] Routine Comment: TIA Consulting Provider: Hernesto Lozada Consult to Specialist Group: Neurology Consult Notification Comment: LEFT MESSAGE AT 0920 Discharging clinician: Alex Vanegas MD Expected date of discharge: 02/12/17
== END 2017-02-12 14:45 | disposition home or self-care (01) | DRG 69 ==
LOC: EDBD → EDUNIT# → N.ED 12:46 → SUATTDRO 14:10 → N.EDINP 14:10 → N.2E 14:56 → N.TELES 19:43
PROVIDERS: ADMIT Student in an Organized Health Care Education/Training Program; ATTEND Family Medicine

== ENCOUNTER 2017-03-29 22:04 | Inpatient (IN) ==
[2017-03-29] MEDS ORDERED: ONDANSETRON 4 MG/2 ML VIAL IV STA (23:13)
[2017-03-29] MEDS ORDERED: FUROSEMIDE 100 MG/10 ML VIAL IV STA (23:13)
[2017-03-29] MEDS ORDERED: NITROGLYCERIN 2% OINT 1 INCH/GM PACK TOP STA (23:13)
[2017-03-29] MEDS ORDERED: methylPREDNISolone SOD SUC 125 MG/2 ML VIAL IV STA (23:13)
[2017-03-29] MEDS ORDERED: cefTRIAXone 1,000 MG in SODIUM CHLORIDE 0.9% 100 ML IV STA (23:13)
[2017-03-29] MEDS ORDERED: ALBUTEROL 2.5 MG/3 ML NEB RESP TX SCH (23:30)
[2017-03-29] MEDS ORDERED: cefTRIAXone 1,000 MG VIAL ONE (23:38)
[2017-03-29] MEDS ORDERED: ONDANSETRON 4 MG/2 ML VIAL ONE (23:38)
[2017-03-29] MEDS ORDERED: NITROGLYCERIN 2% OINT 1 INCH/GM PACK TOP ONE (23:38)
[2017-03-29] MEDS ORDERED: FUROSEMIDE 100 MG/10 ML VIAL ONE (23:39)
[2017-03-29] MEDS ORDERED: SODIUM CHLORIDE 0.9% 100 ML IV ONE (23:39)
[2017-03-29] MEDS ORDERED: methylPREDNISolone SOD SUC 125 MG/2 ML VIAL ONE (23:39)
[2017-03-29 23:47] LABS: ABG Base Excess 3.5 MMOL/L (-2.5-2.5); ABG HCO3 27.6 MMOL/L (20-26); ABG Oxygen Saturation 98.9 % (95-100); ABG PCO2 43.7 MM HG (35-48); ABG PH 7.421 (7.35-7.45); ABG TCO2 25.4 MMOL/L (23-27)
--- NOTE | 2017-03-30 00:11 | Emergency Department Note ---
IAmee Emily, am scribing for, and in the presence of, Domingo Rider MD 23: 29. Adry Mcwilliams Charles R, MD, personally performed the services described in this documentation, ascribed by Leslee Lubin in my presence, and it is both accurate and complete . Arrival - Arrival Chief Complaint: Shortness of Breath Stated Complaint: SOB/CP ED Nursing Triage Note: patient to ED as a transfer from [place] with c/o CP and SOB that lead her to [place] ED. patient has a hx for COPD and PE. patient is pain free at this time. Mode of Arrival: Stretcher Limitations: No Limitations Source: Patient - History of Present Illness HPI Narrative: Pt is a 76 y/o female who was transferred from [facility] to ED for further evaluation of chest pain and SOB that started today. Pt was given Lasix at [facility], per family. Pt notes having more SOB more so, than chest pain. Pt is under supervision of Dr. Piña. She is on Lasix and at home O2, which she used but no relief. Pt has orthopnea, as well. PMHx of COPD, PE, CABG x3 with 4-5 stents, TIA on 02/10/17, Dementia, HLD, [place], CAD, PVD, Vertigo, thyroid disorder, Recurring UTIs. Onset (ago): hour(s) Consistency: intermittent, now resolved Severity: moderate Severity scale (1-10): 5 Quality: fullness Allergies/Adverse Reactions: Allergies Allergy/AdvReac Type Severity Reaction Status Date / Time codeine AdvReac Nausea Verified 03/29/17 22:14 Home Medications: Home Medications Medication Instructions Recorded Confirmed Type Escitalopram [Lexapro] 10 mg PO QAM 05/08/16 02/10/17 History Ferrous Sulfate, Dried [Iron] 325 mg PO QOTHER DAY 05/08/16 02/10/17 History Isosorbide Mononitrate [Isosorbide 60 mg PO QOTHER DAY 05/08/16 02/10/17 History Mononitrate ER] Loratadine [Claritin] 10 mg PO QOTHER DAY 05/08/16 02/10/17 History Ranolazine [Ranexa] 500 mg PO BID 05/08/16 02/10/17 History Atorvastatin Calcium 80 mg PO QAM 10/04/16 02/10/17 History Carvedilol [Coreg] 25 mg PO BID 10/04/16 02/10/17 History Clopidogrel [Plavix] 75 mg PO QAM 02/10/17 02/10/17 History Furosemide Tab [Lasix Tab] 40 mg PO QAM 02/10/17 02/10/17 History Lisinopril [Prinivil] 2.5 mg PO QAM 02/10/17 02/10/17 History Polyethylene Glycol Powder 17 gm PO DAILY PRN 02/10/17 02/10/17 History [Miralax] Potassium Chloride 10 meq PO QAM 02/10/17 02/10/17 History Apixaban [Eliquis] 2.5 mg PO BID #60 tablet 02/12/17 Rx Review of System - Review of System 12 point system: reviewed and no additional remarkable complaints except as stated - Review of System Constitutional: Absent: chills, diaphoresis, fever, weakness Respiratory: Present: respiratory distress (SOB with pain). Absent: wheezing Cardiovascular: Present: chest pain (now resolved), orthopnea. Absent: palpitations, dyspnea on exertion, edema, syncope Gastrointestinal: Absent: abdominal pain, vomiting Musculoskeletal: Absent: arm pain Skin: Absent: rash Neurological: Absent: headache Medical,Surgical,& Family Hx - Medical History Cardio: History of: Cardiac Dysrhythmia, CHF, CAD, Hypertension, [place], PVD, Cardiovascular Problems (pvd) Psychological: History of: Anxiety Disorders, Depression Neurology: History of: Dementia, Vertigo No history of: Seizures HEENT: History of: Ear Problem ([place]), Eye Problem (laser surgery 3 months ago) Endocrine: History of: Dyslipidemia, Thyroid Disorder Respiratory: History of: COPD Renal: History of: Renal Failure (Renal insufficiency) Genitourinary: History of: Recurring Urinary Tract Infections Gastrointestinal: History of: Gastrointestinal Bleed, GI Problems (umbilical hernia) Musculoskeletal: History of: Back/Neck Problems (chronic lower back pain), Osteoporosis - Surgical History Cardiac Surgeries: Sugical HX of: Cardiac Catheterization (stents x5?), Cardiac Surgery (cabg x3) Abdominal Surgeries: Surgical HX of: Cholecystectomy, Colonoscopy, EGD Reproductive Surgeries: Surgical HX of;: Hysterectomy - Family History Family History: Reports;: Family Diabetes Denies;: Family Heart Disease - Social History Smoking Status: Smoker, status unknown Frequency of Alcohol Use: None Type of Drug Use: None Exam Vital Signs: Vital Signs Temperature 98.3 F 03/29/17 22:05 Pulse Rate 78 03/29/17 22:05 Respiratory Rate 22 03/29/17 22:05 Blood Pressure 168/107 03/29/17 22:05 O2 Sat by Pulse Oximetry 100 03/29/17 22:05 - General General appearance: alert, in no apparent distress, other (fragile in appearance ) - Head Head exam: Present: atraumatic, normocephalic - Eye Eye exam: Present: PERRL, EOMI - ENT ENT exam: Present: mucous membranes moist. Absent: mucous membranes dry - Neck Neck exam: Present: full ROM. Absent: tenderness - Chest Chest inspection: Present: symmetric chest wall rise, other (barrel chested). Absent: tenderness - Respiratory Respiratory exam: Present: rales, wheezes. Absent: normal lung sounds bilaterally (decreased), accessory muscle use - Cardiovascular Cardiovascular exam: Present: regular rate, normal rhythm, normal heart sounds - Abdominal Exam Abdominal exam: Present: soft. Absent: tenderness - Extremities Exam Extremities exam: Present: full ROM. Absent: tenderness, pedal edema - Neurological Exam Neurological exam: Present: alert, oriented X3, CN II-XII intact. Absent: motor sensory deficit - Psychiatric Psychiatric exam: Present: normal affect, normal mood - Skin Skin exam: Present: warm, dry Course - Consultations Consultation #1: Hospitalist will admit patient Time: 23:10 Results - Labs Lab Results: I have reviewed the patients labs Labs: All results reviewed from previous facility Critical Care Time Critical Care Time: Yes Total Critical Care Time: 60 Disposition Clinical Impression: Congestive heart failure, Acute exacerbation of chronic obstructive airways disease, Debility, Weakness, CAD (coronary artery disease), Cardiomyopathy, ischemic Case discussed with: patient, patient's family Disposition: Still a Patient Condition: Stable Time of Disposition: 00:11
[2017-03-30 00:56] LABS: Basophils % 0.5 % (0.0-0.8); Eosinophils # 0.1 10*3/uL (0.0-0.87); Eosinophils % 2.9 % (0.00-10.9); Hemoglobin 11.5 GM/DL (12.0-16.0); Immature Granulocytes % 0.3 %; Immature Granulocytes Absolute 0.01 #; Lymphocytes % 27.3 % (21.3-54.2); Mean Corpuscular HGB Conc 31.9 GM/DL (32-36); Mean Corpuscular Hemoglobin 30 PG (27-34); Mean Platelet Volume 11.2 FL (9.6-12.0); Monocytes # 0.4 10*3/uL (0.11-0.8); Neutrophils # 2.3 10*3/uL (1.4-7.4); Platelet Count 141 T/CUMM (130-400); Red Blood Count 3.83 MC/CUMM (3.8-5.5); White Blood Count 3.8 T/CUMM (4-12)
[2017-03-30 01:04] LABS: PT Patient Result 10.6 SECS
[2017-03-30 01:17] LABS: Albumin 3.7 G/DL (3.4-5.0); Calcium 9.3 MG/DL (8.5-10.1); Total Protein 7.4 G/DL (6.4-8.3)
[2017-03-30 01:18] LABS: Magnesium 2.2 MG/DL (1.8-2.4); Osmolality,Calculated 280.4 MOS/KG (273-304); Potassium 3.5 MMOL/L (3.5-5.1); Troponin I Only 0.038 NG/ML (0.00-0.045)
[2017-03-30] MEDS ORDERED: POLYETHYLENE GLYCOL POWDER 17 GM PACK PO PRN (01:53)
--- NOTE | 2017-03-30 02:01 | Hospitalist History & Physical ---
Assessment and Plan (1) UTI (urinary tract infection) Status: Acute Assessment and plan: Patient was given ceftriaxone in the emergency room that can be continued at the dose of 1 g every 24 hours. Reassess need of these antibiotics in 48 hours. Repeat UA in 48 hours guidance on that decision Current Visit: Yes (2) Acute exacerbation of chronic obstructive airways disease Status: Acute Assessment and plan: And will need intensive respiratory toiletry. Encourage beta-2 agonists and ipratropium bromide. Patient should also be on systemic steroids at this point. I have discontinued, carvedilol because of his possible untoward effects on regarding bronchospasms. Patient should be on metoprolol 100 mg twice a day. She was on carvedilol 25 mg twice a day. I have also discontinued ALYSSA inhibitor and substituting it with losartan 25 mg daily. She was on lisinopril 2.5 mg daily. Patient will be consulted pulmonology Current Visit: Yes (3) Congestive heart failure Status: Acute Assessment and plan: Continue diuresis. An echocardiogram to assess valvular structures left ventricular function pericardial status and wall motion her office troponin was 0.038 subsequent serial troponins will be drawn. If there is a rising troponin than the appropriate Cardiologic evaluation should be consulted. This is an an NSTEMI patient will need to be assessed by cardiology she is already on anticoagulation.. EKG shows sinus rhythm with occasional APCs. Nonspecific ST- T changes noted in the inferior and anterolateral leads. There is also suggestion of P pulmonary most likely left atrial enlargement. Current Visit: Yes History of Present Illness Chief complaint: Respiratory distress/ hypoxic respiratory failure History of present illness: Ms. Allison is a 76 year old female who was transferred from [facility] to ED for further evaluation of chest pain and SOB that started today. Pt was given Lasix at [facility], per family. Pt notes having more SOB more so, than chest pain. Pt is under supervision of Dr. Piña. She is on Lasix and at home O2, which she used but no relief. Pt has orthopnea, as well. PMHx of COPD, PE, CABG x3 with 4-5 stents, TIA on 02/10/17, Dementia, HLD, [place], CAD, PVD, Vertigo, thyroid disorder, Recurring UTIs. On review of medication and notes that this patient is on nonselective beta- laura and also using an ALYSSA inhibitor. Both of these can worsen COPD and asthmatic bronchitis features. Probably should reach to comparative doses of selective beta-laura and an angiotensin receptor laura perspective. She has been seen and stabilized in the emergency room also started on some antibiotics. Is being admitted to the hospital service; pulmonary consult will be necessary Home Medications Medication Instructions Recorded Confirmed Type Escitalopram [Lexapro] 10 mg PO QAM 05/08/16 02/10/17 History Ferrous Sulfate, Dried [Iron] 325 mg PO QOTHER DAY 05/08/16 02/10/17 History Isosorbide Mononitrate [Isosorbide 60 mg PO QOTHER DAY 05/08/16 02/10/17 History Mononitrate ER] Loratadine [Claritin] 10 mg PO QOTHER DAY 05/08/16 02/10/17 History Ranolazine [Ranexa] 500 mg PO BID 05/08/16 02/10/17 History Atorvastatin Calcium 80 mg PO QAM 10/04/16 02/10/17 History Carvedilol [Coreg] 25 mg PO BID 10/04/16 02/10/17 History Clopidogrel [Plavix] 75 mg PO QAM 02/10/17 02/10/17 History Furosemide Tab [Lasix Tab] 40 mg PO QAM 02/10/17 02/10/17 History Lisinopril [Prinivil] 2.5 mg PO QAM 02/10/17 02/10/17 History Polyethylene Glycol Powder 17 gm PO DAILY PRN 02/10/17 02/10/17 History [Miralax] Potassium Chloride 10 meq PO QAM 02/10/17 02/10/17 History Apixaban [Eliquis] 2.5 mg PO BID #60 tablet 02/12/17 Rx Allergies Allergy/AdvReac Type Severity Reaction Status Date / Time codeine AdvReac Nausea Verified 03/29/17 22:14 Medical,Surgical,& Family Hx - Medical History Cardio: History of: Cardiac Dysrhythmia, CHF, CAD, Hypertension, [place], PVD, Cardiovascular Problems (pvd) Psychological: History of: Anxiety Disorders, Depression Neurology: History of: Dementia, Vertigo No history of: Seizures HEENT: History of: Ear Problem ([place]), Eye Problem (laser surgery 3 months ago) Endocrine: History of: Dyslipidemia, Thyroid Disorder Respiratory: History of: COPD Renal: History of: Renal Failure (Renal insufficiency) Genitourinary: History of: Recurring Urinary Tract Infections Gastrointestinal: History of: Gastrointestinal Bleed, GI Problems (umbilical hernia) Musculoskeletal: History of: Back/Neck Problems (chronic lower back pain), Osteoporosis - Surgical History Cardiac Surgeries: Sugical HX of: Cardiac Catheterization (stents x5?), Cardiac Surgery (cabg x3) Abdominal Surgeries: Surgical HX of: Cholecystectomy, Colonoscopy, EGD Reproductive Surgeries: Surgical HX of;: Hysterectomy - Family History Family History: Reports;: Family Diabetes Denies;: Family Heart Disease - Social History Smoking Status: Smoker, status unknown Frequency of Alcohol Use: None Type of Drug Use: None Review of systems: Significant for chief complaint history of presenting illness and past medical history. A 12 system was approached was evaluated. Patient at this point is breathing a lot better even though she still has some wheezing going on. Exam - Constitutional Vitals: Period Temp Pulse Resp BP Sys/Kumar Pulse Ox Last 24 Hr 98.3 F-98.3 F 78-78 22-22 167-168/107-107 100 General appearance: normal weight, no acute distress - Head Head exam: Present: normocephalic, atraumatic - Eye Eye exam: Present: EOMI Pupils: Present: MIMI - ENT ENT exam: Present: normal oropharynx - Neck Neck exam: Present: other (Supple neck no JVD no stridor midline trachea) - Respiratory Respiratory exam: Present: other (Bilateral crackles with mixed wheezing. Occasional coughing but no production she has to stop to talk to me so she can catch her breath suggesting more aggressive bronchospasm) - Cardiovascular Cardiovascular exam: Present: irregular rhythm, other (EKG with sinus rhythm with ectopic beats from the atrial source.) - GI/Abdominal GI/Abdominal exam: Present: normal bowel sounds, soft - Extremities Exam Extremities exam: Present: full ROM - Psychiatric Psychiatric exam: Present: normal affect, normal mood - Skin Skin exam: Present: normal color, warm, dry Results - Labs CBC & BMP: 03/29/17 00:46 03/29/17 00:46 Lab Results: I have reviewed the past 24 hour labs
--- NOTE | 2017-03-30 06:30 | XRay Report ---
History: Shortness of breath Date: 03/29/2017 at 11:08 PM Study: Chest x-ray AP portable Comparison exam: February 10, 2017 There is cardiomegaly. Coronary artery stent overlies the left cardiac shadow. The pulmonary vasculature is not engorged. The patient is status post prior median sternotomy. There is mild azygous vein distention. There is some pleural scarring in the right lateral costophrenic angle. There is some mild bibasilar pulmonary edema superimposed upon chronic lung disease. There are some scattered emphysematous changes. Osseous structures are similar. Impression: Cardiomegaly and evidence of CHF with some mild bibasilar edema PROCEDURE INTERPRETED AT [facility] DEPARTMENT OF RADIOLOGY Final Report Signed by: Dr. Marilyn Newman
--- NOTE | 2017-03-30 06:42 | EKG Report ---
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
[2017-03-30] MEDS ORDERED: LOSARTAN 25 MG TABLET PO SCH (09:00)
[2017-03-30] MEDS ORDERED: ISOSORBIDE MONONITRATE 60 MG TABLET PO SCH (09:00)
[2017-03-30] MEDS ORDERED: FERROUS SULFATE 325 MG TABLET PO SCH (09:00)
[2017-03-30] MEDS ORDERED: LORATADINE 10 MG TABLET PO SCH (09:00)
[2017-03-30] MEDS: POTASSIUM CHLORIDE 10 MEQ TABLET PO SCH (09:14)
[2017-03-30] MEDS: METOPROLOL TARTRATE 50 MG TABLET PO SCH ×2 (09:14→20:34)
[2017-03-30] MEDS: ATORVASTATIN 80 MG TABLET PO SCH (09:14)
[2017-03-30] MEDS: RANOLAZINE 500 MG TABLET PO SCH ×2 (09:14→20:34)
[2017-03-30] MEDS: FUROSEMIDE 40 MG TABLET PO SCH (09:15)
[2017-03-30] MEDS: CLOPIDOGREL 75 MG TABLET PO SCH (09:15)
[2017-03-30] MEDS: ESCITALOPRAM 10 MG TABLET PO SCH (09:15)
[2017-03-30] MEDS: APIXABAN 2.5 MG TABLET PO SCH ×2 (09:15→20:35)
--- NOTE | 2017-03-30 12:57 | Cardiology Consult Note ---
Assessment and Plan - Time spent with patient Time spent with patient: Greater than 30 minutes (exam, chart review, documentation and orders) (1) Acute systolic heart failure, ACC/AHA stage C Status: Acute Assessment and plan: acute on chronic systolic and diastolic heart failure with low EF, ischemic Current Visit: Yes (2) Dementia Status: Chronic Current Visit: No Qualifiers: Dementia type: unspecified type (3) Systolic dysfunction, left ventricle Status: Chronic Current Visit: No (4) History of coronary artery bypass graft Status: Chronic Current Visit: No (5) Anemia Status: Chronic Current Visit: No Qualifiers: Anemia type: unspecified type Qualified Code(s): D64.9 - Anemia, unspecified (6) Chronic bronchitis with acute exacerbation Status: Acute Current Visit: No (7) Cardiomyopathy, ischemic Status: Chronic Current Visit: Yes (8) Generalized anxiety disorder Status: Acute Current Visit: No (9) Weakness Status: Chronic Current Visit: Yes (10) Debility Status: Chronic Current Visit: Yes (11) Peripheral vascular disease Status: Chronic Current Visit: Yes (12) CAD (coronary artery disease) Problem details: hx CABG Status: Chronic Current Visit: No Qualifiers: Coronary Disease-Associated Artery/Lesion type: [place] artery [place] vs. transplanted heart: jena heart Associated angina: without angina Qualified Code(s): I25.10 - Atherosclerotic heart disease of jena coronary artery without angina pectoris History of Present Illness - Data of Consult Patient: known to practice within the last 3 years Consult date: 03/30/17 Requesting Physician: Michael Smalls Primary care physician: Duran Ann - Consult Narrative Reason for consult: CHF History of present illness: Ms. Allison is a 76 year old female with ischemic cardiomyopathy [place] Heart Association class 3/4 and also rather advanced COPD. She has underlying dementia that is significant requiring her grandchildren live with her. She has known coronary artery disease has had many PCI in the past by Dr. Domingo Santoro she also had previous coronary artery bypass grafting. The patient presents with shortness of breath that she stated occurred after sitting on the carport during the early evening hours. We have had discussions prior with both the patient and her family concerning defibrillator therapy and she has chosen the along with the family to not have a defibrillator. I think this is been appropriate given her COPD and her dementia. She has done quite well for some time with medical therapy. She has a history of chronic stable angina CCS class III as well. She has diffuse small vessel disease. She has not been cath in some time. Her last echocardiogram here at [facility] on February 10 her ejection fraction had improved. I reviewed these films and her ejection fraction still appears to be less than 35% to me. The patient states she is better. Her only other complaint is the fact that she knocked her oxygen bottle over and hit her foot is black and blue it is the right foot. Her grandchildren are now residing with her because of her advanced dementia to help her with activities of daily living and for her personal safety. CC: Lennie Espinoza MD - Home Medications and Allergies Home Medications: Home Medications Medication Instructions Recorded Confirmed Type Escitalopram [Lexapro] 10 mg PO QAM 05/08/16 03/30/17 History Ferrous Sulfate, Dried [Iron] 325 mg PO QOTHER DAY 05/08/16 03/30/17 History Isosorbide Mononitrate [Isosorbide 60 mg PO QOTHER DAY 05/08/16 03/30/17 History Mononitrate ER] Loratadine [Claritin] 10 mg PO QOTHER DAY 05/08/16 03/30/17 History Atorvastatin Calcium 80 mg PO QAM 10/04/16 03/30/17 History Carvedilol [Coreg] 25 mg PO BID 10/04/16 03/30/17 History Furosemide Tab [Lasix Tab] 40 mg PO QAM 02/10/17 03/30/17 History Lisinopril [Prinivil] 2.5 mg PO QAM 02/10/17 03/30/17 History Polyethylene Glycol Powder 17 gm PO DAILY PRN 02/10/17 03/30/17 History [Miralax] Potassium Chloride 10 meq PO QAM 02/10/17 03/30/17 History Apixaban [Eliquis] 2.5 mg PO BID #60 tablet 02/12/17 03/30/17 Rx Allergies/Adverse Reactions: Allergies Allergy/AdvReac Type Severity Reaction Status Date / Time codeine AdvReac Nausea Verified 03/29/17 22:14 - Constitutional Constitutional: Present: weakness, weight loss. Absent: anorexia, chills, malaise, night sweats, stops breathing during sleep, weight gain - EENT Eyes: Absent: loss of vision Nose, mouth and throat: Absent: dysphagia, neck pain - Cardiovascular Cardiovascular: Present: dyspnea, dyspnea on exertion, orthopnea (States that she sleeps on 3 "gift pillows" each night for comfort). Absent: chest pain at rest, chest pain with activity, edema - Respiratory Respiratory: Present: dyspnea, dyspnea on exertion - Gastrointestinal Gastrointestinal: Present: early satiety. Absent: dyspepsia, dysphagia - Genitourinary Genitourinary: Present: dysuria. Absent: flank pain, hematuria - Musculoskeletal Musculoskeletal: Absent: arthralgias - Neurological Neurological: Absent: abnormal gait, abnormal speech, disequilibrium - Psychiatric Psychiatric: Present: depression - Endocrine Endocrine: Absent: cold intolerance, heat intolerance - Hematologic/Lymphatic Hematologic/Lymphatic: Present: easy bleeding, easy bruising Medical,Surgical,& Family Hx - Medical History Cardio: History of: Cardiac Dysrhythmia, CHF (ICM), CAD (CABG and multiple stent ), Hypertension, [place], PVD, Cardiovascular Problems (pvd) Psychological: History of: Anxiety Disorders, Depression Neurology: History of: Dementia, Vertigo No history of: Seizures HEENT: History of: Ear Problem ([id number]), Eye Problem (laser surgery 3 months ago) Endocrine: History of: Dyslipidemia, Thyroid Disorder Respiratory: History of: COPD Renal: History of: Renal Failure (Renal insufficiency) Genitourinary: History of: Recurring Urinary Tract Infections Gastrointestinal: History of: Gastrointestinal Bleed, GI Problems (umbilical hernia) Musculoskeletal: History of: Back/Neck Problems (chronic lower back pain), Osteoporosis - Surgical History Cardiac Surgeries: Sugical HX of: Cardiac Catheterization (stents x5?), Cardiac Surgery (cabg x3) Abdominal Surgeries: Surgical HX of: Cholecystectomy, Colonoscopy, EGD Reproductive Surgeries: Surgical HX of;: Hysterectomy - Family History Family History: Reports;: Family Diabetes Denies;: Family Heart Disease - Social History Smoking Status: Smoker, status unknown Frequency of Alcohol Use: None Type of Drug Use: None Marital Status: Lives With:: Children Functional capacity: independent ambulation Physical Examination Vital Signs Temp Pulse Resp BP Pulse Ox 98.3 F 78 22 168/107 100 03/29/17 22:05 03/29/17 22:05 03/29/17 22:05 03/29/17 22:05 03/29/17 22:05 General: Present: Appears Well Neck: Present: Supple Neck, Midline Trachea, No Masses, No Bruit Cardiac: Present: S1/S2, S4, Laterally Displaced Lungs: Present: Bibasilar Rales, Wheezes Neuro: Present: Cranial Nerve 2-12 Intact Abdomen: Present: Soft, Active Bowel Sounds Skin: Present: Clear Gait: Present: Normal Gait Extremities: Present: Normal Gait, Other (ecchymosis and bruising in the right foot). Absent: Edema Result/EKG - Labs CBC & BMP: 03/29/17 00:46 03/29/17 00:46 Labs: Laboratory Results - last 24 hr 03/30/17 03/30/17 03/30/17 03:24 03:24 07:17 POC Glucose 154 H Troponin I 0.030 0.036 - EKG EKG results: interpreted by me (NSR with LVH and occasional APC with non- specific IVCD. Right atrial abnormality.)
--- NOTE | 2017-03-30 15:45 | Pulmonology Consult Note ---
Assessment and Plan (1) Cardiomyopathy, ischemic Status: Chronic Assessment and plan: The patient apparently has a significant ischemic cardiomyopathy and does have a tendency for heart failure. Current Visit: Yes (2) Coronary artery disease Status: Chronic Assessment and plan: She is not having any angina at present. Current Visit: Yes (3) Congestive heart failure Status: Acute Assessment and plan: She will continue treatment for heart failure. Current Visit: Yes (4) Acute exacerbation of chronic obstructive airways disease Status: Acute Assessment and plan: She has had a mild exacerbation of her COPD and does need to take regular bronchodilators at home Current Visit: Yes History of Present Illness Chief complaint: Shortness of breath History of present illness: Ms. Allison is a 76 year old white female that was transferred from [facility] with shortness of breath. Patient has a history of COPD along with an ischemic cardiomyopathy and also has a component of dementia. She states she has been coughing a little more short of breath lately. She is feeling better today and feels like her breathing is better. She has been a lifelong smoker but does not smoke much now. Patient apparently has had angioplasties in the past and has had previous bypass surgery. Her ejection fraction in the past has been around 35%. She says she has oxygen and a nebulizer at home. She does not use any regular bronchodilator. Home Medications Medication Instructions Recorded Confirmed Type Escitalopram [Lexapro] 10 mg PO QAM 05/08/16 03/30/17 History Ferrous Sulfate, Dried [Iron] 325 mg PO QOTHER DAY 05/08/16 03/30/17 History Isosorbide Mononitrate [Isosorbide 60 mg PO QOTHER DAY 05/08/16 03/30/17 History Mononitrate ER] Loratadine [Claritin] 10 mg PO QOTHER DAY 05/08/16 03/30/17 History Atorvastatin Calcium 80 mg PO QAM 10/04/16 03/30/17 History Carvedilol [Coreg] 25 mg PO BID 10/04/16 03/30/17 History Furosemide Tab [Lasix Tab] 40 mg PO QAM 02/10/17 03/30/17 History Lisinopril [Prinivil] 2.5 mg PO QAM 02/10/17 03/30/17 History Polyethylene Glycol Powder 17 gm PO DAILY PRN 02/10/17 03/30/17 History [Miralax] Potassium Chloride 10 meq PO QAM 02/10/17 03/30/17 History Apixaban [Eliquis] 2.5 mg PO BID #60 tablet 02/12/17 03/30/17 Rx Allergies Allergy/AdvReac Type Severity Reaction Status Date / Time codeine AdvReac Nausea Verified 03/29/17 22:14 - Constitutional Constitutional: Present: fatigue, weakness. Absent: chills, fever(s) - EENT Eyes: Absent: loss of vision Ears: Absent: decreased hearing Nose, mouth and throat: Absent: dysphagia, headache(s), sinus pressure - Cardiovascular Cardiovascular: Present: dyspnea, orthopnea, PND. Absent: chest pain at rest, edema - Respiratory Respiratory: Present: cough, dyspnea, wheezing. Absent: hemoptysis, change in phlegm color - Gastrointestinal Gastrointestinal: Absent: abdominal pain, change in bowel habits, dysphagia, nausea, vomiting - Genitourinary Genitourinary: Absent: difficulty urinating, dysuria, hematuria, urinary frequency - Musculoskeletal Musculoskeletal: Absent: arthralgias, muscle weakness - Neurological Neurological: Present: confusion, memory loss. Absent: abnormal speech, focal weakness - Psychiatric Psychiatric: Present: anxiety Exam (Pulmonay) H&P - Constitutional Vitals: Period Temp Pulse Resp BP Sys/Kumar Pulse Ox Last 24 Hr 97.2 F-98.0 F 69-96 18-20 113-140/52-68 93-96 General appearance: normal weight, no acute distress, other (She looks reasonably comfortable at rest now) - Head Head exam: Present: normal inspection, normocephalic - Eye Eye exam: Present: EOMI. Absent: scleral icterus Pupils: Present: MIMI - ENT ENT exam: Present: normal exam - Neck Neck exam: Present: normal inspection. Absent: lymphadenopathy, thyromegaly - Respiratory Respiratory exam: Present: decreased breath sounds, prolonged expiratory phase, rhonchi - Cardiovascular Cardiovascular exam: Present: regular rate and rhythm, other (PMI is laterally displaced). Absent: gallop - GI/Abdominal GI/Abdominal exam: Present: normal bowel sounds, soft. Absent: organomegaly, tenderness - Extremities Exam Extremities exam: Absent: calf tenderness, edema - Neurological Exam Neurological exam: Present: alert, oriented X3, altered (She is confused at times) - Psychiatric Psychiatric exam: Present: normal affect, anxious - Skin Skin exam: Present: warm, dry Medical,Surgical,& Family Hx - Medical History Cardio: History of: Cardiac Dysrhythmia, CHF (ICM), CAD (CABG and multiple stent ), Hypertension, [place], PVD, Cardiovascular Problems (pvd) Psychological: History of: Anxiety Disorders, Depression Neurology: History of: Dementia, Vertigo No history of: Seizures HEENT: History of: Ear Problem ([place]), Eye Problem (laser surgery 3 months ago) Endocrine: History of: Dyslipidemia, Thyroid Disorder Respiratory: History of: COPD Renal: History of: Renal Failure (Renal insufficiency) Genitourinary: History of: Recurring Urinary Tract Infections Gastrointestinal: History of: Gastrointestinal Bleed, GI Problems (umbilical hernia) Musculoskeletal: History of: Back/Neck Problems (chronic lower back pain), Osteoporosis - Surgical History Cardiac Surgeries: Sugical HX of: Cardiac Catheterization (stents x5?), Cardiac Surgery (cabg x3) Abdominal Surgeries: Surgical HX of: Cholecystectomy, Colonoscopy, EGD Reproductive Surgeries: Surgical HX of;: Hysterectomy - Family History Family History: Reports;: Family Diabetes Denies;: Family Heart Disease - Social History Smoking Status: Current some day smoker Frequency of Alcohol Use: None Type of Drug Use: None Results - Labs CBC & BMP: 03/29/17 00:46 03/29/17 00:46 Labs: Her PO2 is 130 with a PCO2 of 43 and a pH of 7.42 - Diagnostic Findings Procedure: Chest x-ray: image reviewed by me, report reviewed by me (Chest x- ray shows cardiomegaly and COPD changes. There is a small right pleural effusion.)
[2017-03-30] MEDS: BUDESONIDE/FORMOTEROL 160-4.5 INHALER 6 GM INH SCH (20:39)
[2017-03-31 06:59] LABS: Basophils % 0.5 % (0.0-0.8); Eosinophils # 0.1 10*3/uL (0.0-0.87); Hematocrit 33.5 VOL% (35.7-47.0); Hemoglobin 10.2 GM/DL (12.0-16.0); Immature Granulocytes % 0.5 %; Immature Granulocytes Absolute 0.02 #; Lymphocytes # 0.8 10*3/uL (1.4-4.0); Lymphocytes % 17.9 % (21.3-54.2); Mean Corpuscular HGB Conc 30.4 GM/DL (32-36); Mean Corpuscular Hemoglobin 30 PG (27-34); Mean Corpuscular Volume 98.8 FL (87-102); Mean Platelet Volume 11.5 FL (9.6-12.0); Monocytes # 0.4 10*3/uL (0.11-0.8); Monocytes % 8.6 % (1.7-12.7); Neutrophils # 3.1 10*3/uL (1.4-7.4); Neutrophils % 70.5 % (38.7-73.9); Platelet Count 164 T/CUMM (130-400); Red Blood Count 3.39 MC/CUMM (3.8-5.5); Red Cell Distribution Width 15.9 % (9.3-17.3); White Blood Count 4.4 T/CUMM (4-12)
[2017-03-31 07:27] LABS: Calcium 8.6 MG/DL (8.5-10.1); Osmolality,Calculated 290.1 MOS/KG (273-304); Potassium 4.4 MMOL/L (3.5-5.1)
[2017-03-31] MEDS: METOPROLOL TARTRATE 50 MG TABLET PO SCH (08:39)
[2017-03-31] MEDS: CLOPIDOGREL 75 MG TABLET PO SCH (08:39)
[2017-03-31] MEDS: RANOLAZINE 500 MG TABLET PO SCH (08:39)
[2017-03-31] MEDS: ATORVASTATIN 80 MG TABLET PO SCH (08:39)
[2017-03-31] MEDS: APIXABAN 2.5 MG TABLET PO SCH (08:40)
[2017-03-31] MEDS: ESCITALOPRAM 10 MG TABLET PO SCH (08:40)
[2017-03-31] MEDS: FUROSEMIDE 40 MG TABLET PO SCH (08:40)
[2017-03-31] MEDS: POTASSIUM CHLORIDE 10 MEQ TABLET PO SCH (08:40)
[2017-03-31] MEDS: BUDESONIDE/FORMOTEROL 160-4.5 INHALER 6 GM INH SCH (08:46)
--- NOTE | 2017-03-31 08:59 | Pulmonology Progress Note ---
Pulmonary - PN: Subj Interval history: Patient is a 76-year-old white lady that has a significant cardiomyopathy along with COPD. She came in with shortness of breath was having some bronchitis with cough and wheeze. She may have been mildly overloaded also. She says she is feeling much better today. Her cough is better and her shortness of breath is better. She is not having any chest pain and she had a fairly comfortable night. She says her breathing is better and feels like going home today. She does have oxygen at home. Exam (Progress Note) - Constitutional Vitals: Period Temp Pulse Resp BP Sys/Kumar Pulse Ox Last 24 Hr 97.6 F-98.0 F 57-69 14-20 108-122/47-73 90-97 Exam: General appearance: normal weight, no acute distress, other (She looks reasonably comfortable at rest now. She is not having any distress now.) - Head Head exam: Present: normal inspection, normocephalic - Eye Eye exam: Present: EOMI. Absent: scleral icterus Pupils: Present: MIMI - ENT ENT exam: Present: normal exam - Neck Neck exam: Present: normal inspection. Absent: lymphadenopathy, thyromegaly - Respiratory Respiratory exam: Present: She does have decreased breath sounds with prolonged expiration but not much wheezing now. - Cardiovascular Cardiovascular exam: Present: regular rate and rhythm, other (PMI is laterally displaced). Absent: gallop - GI/Abdominal GI/Abdominal exam: Present: normal bowel sounds, soft. Absent: organomegaly, tenderness - Extremities Exam Extremities exam: Absent: calf tenderness, edema - Neurological Exam Neurological exam: Present: alert, oriented X3, altered (She is confused at times) - Psychiatric Psychiatric exam: Present: normal affect, anxious - Skin Skin exam: Present: warm, dry Results - Labs CBC & BMP: 03/31/17 06:43 03/31/17 06:43 Assessment and Plan (1) Cardiomyopathy, ischemic Status: Chronic Assessment and plan: The patient apparently has a significant ischemic cardiomyopathy and does have a tendency for heart failure. Her breathing is doing well now. Current Visit: Yes (2) Coronary artery disease Status: Chronic Assessment and plan: She is not having any angina at present. Current Visit: Yes (3) Congestive heart failure Status: Acute Assessment and plan: She will continue treatment for heart failure. Current Visit: Yes (4) Acute exacerbation of chronic obstructive airways disease Status: Acute Assessment and plan: She has had a mild exacerbation of her COPD and does need to take regular bronchodilators at home. We will try Symbicort for now. Will have her come back to the office in a few weeks and check PFTs. She says she is feeling well and wants to go home today. Current Visit: Yes Specialty Discharge - Follow Up or Referrals Follow up with: Addi Serrano MD [Physician] - 2 Weeks
[2017-03-31] MEDS ORDERED: SPIRONOLACTONE 25 MG TABLET PO SCH (09:00)
[2017-03-31] MEDS ORDERED: predniSONE 20 MG TABLET PO SCH (09:00)
[2017-03-31 11:35] VITALS: BP 112/53
--- NOTE | 2017-03-31 12:06 | Discharge Summary ---
Hospital Course - Hospital Course Hospital Course: Ms. Allison is a 76 year old female who was transferred from [facility] to ED for further evaluation of chest pain and SOB that started today. Pt was given Lasix at [facility], per family. Pt notes having more SOB more so, than chest pain. Pt is under supervision of Dr. Piña. She is on Lasix and at home O2, which she used but with no relief. Pt has orthopnea, as well. PMHx of COPD, PE, CABG x3 with 4-5 stents, TIA on 02/10/17, Dementia, HLD, [place], CAD, PVD, Vertigo, thyroid disorder, Recurring UTIs. Patient was admitted with COPD exacerbation and volume overload. She was started on lasix. Pulmonary was consulted. She was started on spiriva and prednisone. Cardiology was also consulted. She is doing much better now, shortness of breath is resolved. She has supplemental oxygen at home. Her creatinine did increase to 1.6 today on lasix, she will follow-up with her pcp in [place], [place] for a repeat check on Wednesday. She has now reached maximum benefit of inpatient stay and will be discharged home. - Time spent with patient Time with patient DS: Less than 30 minutes Diagnosis - Discharge Diagnosis (1) Acute exacerbation of chronic obstructive airways disease Status: Resolved (2) Congestive heart failure Status: Chronic Specialty Discharge - Follow Up or Referrals Follow up with: Addi Serrano MD [Physician] - 2 Weeks Discharge Plan - Discharge Data Condition at Discharge: Stable Discharge Diet: advance to your usual diet Activity: increase activity as tolerated Hygiene: no restrictions Weight Bearing at Discharge: weight bear as tolerated - Discharge Medications New Budesonide/Formoterol 160-4.5 [Symbicort 160-4.5] 2 puff INH BID #1 inhaler Metoprolol Tartrate Tab [Lopressor Tab] 100 mg PO BID #60 tablet Ranolazine [Ranexa] 500 mg PO BID #0 tablet Spironolactone [Aldactone] 25 mg PO DAILY #30 tablet predniSONE TAB [PredniSONE] 20 mg PO DAILY #5 tablet Clopidogrel [Plavix] 75 mg PO QAM tablet Continue Loratadine [Claritin] 10 mg PO QOTHER DAY Isosorbide Mononitrate [Isosorbide Mononitrate ER] 60 mg PO QOTHER DAY Ferrous Sulfate, Dried [Iron] 325 mg PO QOTHER DAY Escitalopram [Lexapro] 10 mg PO QAM Atorvastatin Calcium 80 mg PO QAM Polyethylene Glycol Powder [Miralax] 17 gm PO DAILY PRN PRN Reason: Constipation Furosemide Tab [Lasix Tab] 40 mg PO QAM Potassium Chloride 10 meq PO QAM Apixaban [Eliquis] 2.5 mg PO BID #60 tablet Discontinued Carvedilol [Coreg] 25 mg PO BID Lisinopril [Prinivil] 2.5 mg PO QAM - Follow Up or Referral Follow Up: Addi Serrano MD [Physician] - 2 Weeks - Forms/Instructions Instructions: Heart Failure (DC), Coronary Artery Disease (DC), COPD Exacerbation, Chemical Instrumentation Officer (GEN) Exam - Constitutional Vitals: Period Temp Pulse Resp BP Sys/Kumar Pulse Ox Last 24 Hr 97.5 F-98.0 F 55-69 14-20 108-125/47-81 90-100 General appearance: normal weight - Head Head exam: Present: normocephalic, atraumatic - Eye Eye exam: Present: EOMI Pupils: Present: MIMI - ENT ENT exam: Present: normal exam - Neck Neck exam: Present: normal inspection - Respiratory Respiratory exam: Present: clear to auscultation bilaterally. Absent: rhonchi, wheezes - Cardiovascular Cardiovascular exam: Present: regular rate and rhythm - GI/Abdominal GI/Abdominal exam: Present: normal bowel sounds, soft. Absent: tenderness, rebound - Extremities Exam Extremities exam: Present: normal inspection - Back Exam Back exam: Present: normal inspection - Neurological Exam Neurological exam: Present: alert, oriented X3 - Psychiatric Psychiatric exam: Present: normal affect, normal mood - Skin Skin exam: Present: warm, intact Discharge Results Labs on day of discharge: Labs from last 24 hours 03/31/17 03/31/17 06:43 06:43 WBC 4.4 RBC 3.39 L Hgb 10.2 L Hct 33.5 L MCV 98.8 MCH 30 MCHC 30.4 L RDW 15.9 Plt Count 164 MPV 11.5 Neut % (Auto) 70.5 Lymph % (Auto) 17.9 L [place] % (Auto) 8.6 Eos % (Auto) 2.0 Baso % (Auto) 0.5 Neut # (Auto) 3.1 Lymph # (Auto) 0.8 L [place] # (Auto) 0.4 Eos # (Auto) 0.1 Baso # (Auto) 0.0 Immature Gran % 0.5 Nucleated RBC % 0.0 Immature Gran # 0.02 Nucleated RBCs # 0.00 Sodium 142 Potassium 4.4 Chloride 104 Carbon Dioxide 32 Anion Gap 10.4 BUN 35 H Creatinine 1.60 H GFR Calculation 28 BUN/Creatinine Ratio 21.00 H Glucose 99 Calculated Osmolality 290.1 Calcium 8.6 DS: Provider Date of admission: 03/30/17 01:52 Primary care physician: . No PCP Attending physician on admission: Michael Smalls MD Consults: 03/30/17 02:11 Consult to Physician [CONS] Routine Comment: On-call physician/acute on chronic CHF Consulting Provider: Sal Carlos Consult to Specialist Group: Cardiology When should Consulting Provider be notified: In am Person Notified: Colette Date Notified: 03/30/17 Time Notified: 09:28 03/30/17 02:12 Consult to Physician [CONS] Routine Comment: On-call physician/ the exacerbation Consulting Provider: Addi Serrano Consult to Specialist Group: Pulmonology When should Consulting Provider be notified: In am Person Notified: LEANNA Date Notified: 03/30/17 Time Notified: 09:42 Consult Notification Comment: Discharging clinician: Lennie Espinoza MD
--- NOTE | 2017-03-31 13:31 | Cardiology Progress Note ---
Qamar Mcwilliams April, RN, am scribing for, and in the presence of, Arlen Mcclendon DO 13 :31. Assessment and Plan (1) Acute systolic heart failure, ACC/AHA stage C Status: Acute Current Visit: Yes (2) Cardiomyopathy, ischemic Status: Chronic Current Visit: Yes (3) Peripheral vascular disease Status: Chronic Current Visit: Yes (4) Anemia Status: Chronic Current Visit: No Qualifiers: Anemia type: unspecified type Qualified Code(s): D64.9 - Anemia, unspecified (5) CAD (coronary artery disease) Problem details: hx CABG Status: Chronic Current Visit: No Qualifiers: Coronary Disease-Associated Artery/Lesion type: [place] artery [place] vs. 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 Mcclendon Ms. Allison is seen sitting up on side of bed in no acute distress. She tells me she feels much better and her breathing is greatly improved. She denies any chest pain, palpitations, or dizziness. Vital signs been stable. lunchroom monitor currently shows sinus bradycardia with heart rates in the 50s. Her creatinine is elevated at 1.6 today, up from 1.1 yesterday. I saw and examined the patient with Mrs. Foote. Ms. Allison daughters at the bedside and also discussed with her. Her mental status appears to me looked a little better than I have seen her in a while and her daughter states that it comes and goes. She has no complaints and is breathing better I discussed with the daughter that her cardiomyopathy appears to be compensated and not feel that her current admission is more due to COPD type exacerbation then heart failure. We will continue her heart failure medications and I will be glad to see her in the office for follow-up. The patient and family have had discussions in the past about defibrillator and she wishes to not have one think that is appropriate given her dementia. I think her life span certainly is exceeds 1 year but the patient and family agreed that they think it is not best for them. Exam (Progress Note) - Constitutional Vitals: Period Temp Pulse Resp BP Sys/Kumar Pulse Ox Last 24 Hr 97.6 F-98.0 F 57-69 14-20 108-122/47-73 90-97 General appearance: normal weight, no acute distress - Head Head exam: Absent: abrasion, hematoma - Eye Eye exam: Absent: periorbital swelling, laceration to eyelids - Respiratory Respiratory exam: Present: rales. Absent: accessory muscle use, chest wall tenderness - Cardiovascular Cardiovascular exam: Present: bradycardia, regular rate and rhythm - GI/Abdominal GI/Abdominal exam: Present: normal bowel sounds, soft. Absent: distended, tenderness - Extremities Exam Extremities exam: Absent: edema - Neurological Exam Neurological exam: Present: alert, abnormal gait - Psychiatric Psychiatric exam: Present: normal affect, normal mood - Skin Skin exam: Present: warm, dry Result/EKG - Labs CBC & BMP: 03/31/17 06:43 03/31/17 06:43 Lab Results: I have reviewed the past 24 hour labs Labs: Laboratory Results - last 24 hr 03/31/17 03/31/17 06:43 06:43 WBC 4.4 RBC 3.39 L Hgb 10.2 L Hct 33.5 L MCV 98.8 MCH 30 MCHC 30.4 L RDW 15.9 Plt Count 164 MPV 11.5 Neut % (Auto) 70.5 Lymph % (Auto) 17.9 L [place] % (Auto) 8.6 Eos % (Auto) 2.0 Baso % (Auto) 0.5 Neut # (Auto) 3.1 Lymph # (Auto) 0.8 L [place] # (Auto) 0.4 Eos # (Auto) 0.1 Baso # (Auto) 0.0 Immature Gran % 0.5 Nucleated RBC % 0.0 Immature Gran # 0.02 Nucleated RBCs # 0.00 Sodium 142 Potassium 4.4 Chloride 104 Carbon Dioxide 32 Anion Gap 10.4 BUN 35 H Creatinine 1.60 H GFR Calculation 28 BUN/Creatinine Ratio 21.00 H Glucose 99 Calculated Osmolality 290.1 Calcium 8.6 - EKG EKG results: interpreted by me EKG shows: bradycardia, sinus rhythm Specialty Discharge - Follow Up or Referrals Follow up with: Addi Serrano MD [Physician] - 04/21/17 11:00 am Arlen Mcclendon DO [Physician] - 05/04/17 12:50 pm I, Arlen Mcclendon DO, personally performed the services described in this documentation, ascribed by Nessa Foote RN in my presence, and it is both accurate and complete [id number] .
--- NOTE | 2017-04-01 16:20 | Physician Query Form ---
CLICK EDIT DOCUMENT TO SELECT QUERY ANSWER --> OK --> SIGN Sia Tejada RN Clinical Mixer [place] W) [phone] (f) [phone] [email or web address] PROVIDERS: Make your selection(s) from the choices in EACH section by typing an "x" and enter comments in the comment section. Please use your independent medical judgment in providing your response. This request does not imply that any particular answer is desired or expected. CLINICAL INDICATORS: (Providers should not edit this section) Based on documentation of " Her creatinine did increase to 1.6 today on Lasix", creatinine on admission of 1.10 and increased to 1.60 with a GFR of 28. Clarify which of the following most accurately represents the patient's renal status: (x ) Acute kidney injury (non-traumatic) ( ) Acute renal failure ( ) Acute renal failure with underlying Chronic Kidney Disease (CKD) - please provide stage below ( ) CKD - please provide stage below ( ) Other, please specify: ( ) Clinically unable to determine Chronic Kidney Disease Stages Source: National Kidney Disease Foundation ( ) Stage I (eGFR > or = 90) ( ) Stage II (eGFR 60 - 89) ( ) Stage III (eGFR 30 - 59) ( ) Stage IV (eGFR 15 - 29) ( ) Stage V (eGFR < 15 or dialysis) COMMENTS: Use of terms such as suspected, likely, or probable (associated with a specific diagnosis that is being evaluated, monitored, or treated as if it exists) are acceptable and can be restated in the discharge summary if not ruled out. MTDD
== END 2017-03-31 13:10 | disposition home or self-care (01) | DRG 190 ==
LOC: EDBD → EDUNIT# → N.ED 22:04 → N.EDINP 03-30 01:52 → SUATTDRO 03-30 01:52 → N.5E 03-30 02:13
PROVIDERS: ADMIT Internal Medicine Infectious Disease; ATTEND Internal Medicine

== ENCOUNTER 2017-05-28 10:26 | Inpatient (IN) ==
[2017-05-28] MEDS ORDERED: METHOCARBAMOL 1,000 MG/10 ML VIAL IV STA (10:47)
[2017-05-28] MEDS ORDERED: methylPREDNISolone SOD SUC 125 MG/2 ML VIAL IV STA (10:47)
[2017-05-28] MEDS ORDERED: KETOROLAC 30 MG/1 ML VIAL IV STA (10:47)
[2017-05-28] MEDS ORDERED: METHOCARBAMOL 1,000 MG/10 ML VIAL ONE (10:55)
[2017-05-28] MEDS ORDERED: KETOROLAC 30 MG/1 ML VIAL ONE (10:55)
[2017-05-28] MEDS ORDERED: methylPREDNISolone SOD SUC 125 MG/2 ML VIAL ONE (10:56)
--- NOTE | 2017-05-28 10:59 | Emergency Department Note ---
Arrival - Arrival Chief Complaint: Chest Pain Stated Complaint: CHEST PAIN/A.FIB ED Nursing Triage Note: Patient complains of left shoulder pain started at 0900 this morning while sitting in a recliner watching T.V. that radiated to her chest with shortness of breath. She denies diaphoresis, nausea, vomiting, or dizziness. Anxiety issues reported by family member regarding transfer patient to assisted living scheduled for 05/29/17 Mode of Arrival: Stretcher Limitations: No Limitations Source: Patient Time Seen by Provider: 05/28/17 10:47 - History of Present Illness HPI Narrative: This 76-year-old white female presents with complaints of onset of left shoulder pain associated with rapid heartbeat while watching TV this morning. She subsequently went to the [facility] where she was found to be in SVT and converted with Cardizem to sinus rhythm. At no time was she nauseated, vomited , or experienced diaphoresis. At [facility] she demonstrated negative enzymes but a bump in the BNP. To further complicate the picture, she has had complaints of drop wirer neck stiffness and left scapular pain for some time but denies history of neck operation or injury. She has been followed in the past by Dr. Piña for CABG, stents, and congestive heart failure. Currently she appears in no acute medical distress. Onset (ago): hour(s) (Patient presents 3 hours post onset of symptoms) Allergies/Adverse Reactions: Allergies Allergy/AdvReac Type Severity Reaction Status Date / Time codeine AdvReac Nausea Verified 03/29/17 22:14 Home Medications: Home Medications Medication Instructions Recorded Confirmed Type Escitalopram [Lexapro] 10 mg PO QAM 05/08/16 05/28/17 History Isosorbide Mononitrate [Isosorbide 60 mg PO DAILY 05/08/16 05/28/17 History Mononitrate ER] Loratadine [Claritin] 10 mg PO QOTHER DAY 05/08/16 05/28/17 History Atorvastatin Calcium 80 mg PO QAM 10/04/16 05/28/17 History Apixaban [Eliquis] 2.5 mg PO BID #60 tablet 02/12/17 05/28/17 Rx Furosemide Tab [Lasix Tab] 40 mg PO QAM #30 tablet 03/31/17 05/28/17 Rx Metoprolol Tartrate Tab [Lopressor 100 mg PO BID #60 tablet 03/31/17 05/28/17 Rx Tab] Ranolazine [Ranexa] 500 mg PO BID #0 tablet 03/31/17 05/28/17 Rx Spironolactone [Aldactone] 25 mg PO DAILY #30 tablet 03/31/17 05/28/17 Rx Cyanocobalamin Inj [Vitamin B12 1,000 mcg IM Q30D 05/28/17 05/28/17 History Inj] Mupirocin [Mupirocin 2% Oint] 1 applic TOP BID 05/28/17 05/28/17 History Nitroglycerin Sl Tab [Nitrostat] 0.4 mg SL Q5M PRN 05/28/17 05/28/17 History Pantoprazole Sodium 40 mg PO BID 05/28/17 05/28/17 History Potassium Chloride Cap/Tab [K Dur] 20 meq PO BID 05/28/17 05/28/17 History cephALEXin [Cephalexin] 500 mg PO Q6H 05/28/17 05/28/17 History Medical,Surgical,& Family Hx - Medical History Cardio: History of: Cardiac Dysrhythmia, CHF (ICM), CAD (CABG and multiple stent ), Hypertension, [place], PVD, Cardiovascular Problems (pvd) Psychological: History of: Anxiety Disorders, Depression Neurology: History of: Dementia, Vertigo No history of: Seizures HEENT: History of: Ear Problem (NINILCHIK), Eye Problem (laser surgery 3 months ago) Endocrine: History of: Dyslipidemia, Thyroid Disorder Respiratory: History of: COPD Renal: History of: Renal Failure (Renal insufficiency) Genitourinary: History of: Recurring Urinary Tract Infections Gastrointestinal: History of: Gastrointestinal Bleed, GI Problems (umbilical hernia) Musculoskeletal: History of: Back/Neck Problems (chronic lower back pain), Osteoporosis - Surgical History Cardiac Surgeries: Sugical HX of: Cardiac Catheterization (stents x5?), Cardiac Surgery (cabg x3) Abdominal Surgeries: Surgical HX of: Cholecystectomy, Colonoscopy, EGD Reproductive Surgeries: Surgical HX of;: Hysterectomy - Family History Family History: Reports;: Family Diabetes Denies;: Family Heart Disease - Social History Smoking Status: Unknown if ever smoked Frequency of Alcohol Use: None Type of Drug Use: None Exam Physical Examination: GENERAL: Well developed, well nourished elderly white in no acute distress. HEENT: Normocephalic. No trauma. Moist mucous membranes. EOMI. PERRLA. ENT NML NECK: Supple. Paraspinal cervical muscular spasm no adenopathy. CARDIAC: Regular. No murmurs. Heart rate 90 CHEST: Clear to auscultation. No respiratory distress. O2 sat 100%. Tender high left anterior chest wall pain to mechanical compression. Tender left scapular insertion sites ABDOMEN: Soft. Nontender. Active bowel sounds. EXTREMITIES: No trauma. Normal ROM. No pedal edema. SKIN: No diaphoresis. No rash. NEURO: Alert. Oriented 3 but anxious. Motor, sensory, vibratory intact. Good fisher gill net strength left hand. No focal deficits. Vital Signs: Vital Signs Temperature 96.1 F L 05/28/17 10:27 Pulse Rate 90 05/28/17 10:27 Respiratory Rate 18 05/28/17 10:27 Blood Pressure 132/79 05/28/17 10:27 O2 Sat by Pulse Oximetry 100 05/28/17 10:27 Course - Reevaluation(s) Reevaluation #1: Advised patient the need for hospitalization given a bump in enzymes and significant increase in BMP. - Consultations Consultation #1: Discussed with Dr. Washburn's practitioner Griselda who will admit for further evaluation treatment. Results - Labs CBC & BMP: 05/28/17 11:47 05/28/17 11:47 Lab Results: I have reviewed the patients labs Labs: I have reviewed the laboratory noted the bump in troponin and the elevated BnP - Impressions EKG: Sinus rhythm at 65. Normal TX interval and QRS duration. Evidence of left ventricular hypertrophy with early strain pattern, no acute injury pattern noted. - Diagnostic Findings Procedure: Chest x-ray: image reviewed by me, report reviewed by me ( Cardiomegaly, status post median sternotomy and stents, diffuse interstitial scarring, interval improvement.), X-ray: image reviewed by me, report reviewed by me (Cervical spine: Diffuse degenerative changes C3-C4 C4-C5 C5-C6 C6-C7 with straightening of the spine.) Disposition Clinical Impression: Congestive heart failure, SVT, Abnormal cardiac enzymes, Cervical radiculopathy Case discussed with: patient, patient's family Disposition: Still a Patient Condition: Stable Time of Disposition: 13:10
[2017-05-28] MEDS ORDERED: METOPROLOL TARTRATE 25 MG TABLET PO STA (11:07)
--- NOTE | 2017-05-28 11:14 | EKG Report ---
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
--- NOTE | 2017-05-28 11:51 | XRay Report ---
XR chest 1V portable Indication: Chest pain. Chest one view: Comparison 03/29/2017. Cardiomegaly, coronary stents, postoperative changes median sternotomy, calcified atheromatous disease the aorta, diffusely coarsened interstitial markings of the lungs, bilateral infrahilar and right perihilar scarring, and elevation of the right hemidiaphragm with scarring of the right costophrenic sulcus are again noted. Overall, lungs are better aerated than previous with decreased reticular nodular opacification throughout. Impression: When compared to 03/29/2017, general improved aeration of the lungs. However, extensive chronic changes are detailed above. PROCEDURE INTERPRETED AT [facility] DEPARTMENT OF RADIOLOGY Final Report Signed by: Lupillo Rocha M.D.
--- NOTE | 2017-05-28 11:52 | XRay Report ---
Exam: XR cervical spine AP/LAT Date: 05/28/2017 10:47 AM Indication: Neck pain Comparison: None Technical: AP lateral swimmer's open mouth odontoid view 5 total images Findings: The odontoid is unremarkable. 7 cervical vertebral bodies are demonstrated. There is disc space narrowing at C3-4 C4-5 C5-6 and C6-7. The posterior elements are intact. The neural foramina canals are not evaluated without oblique images. Minimal vascular calcification of the carotid arteries. Lung apices are intact. Impression: 1. Intervertebral discogenic disease at multiple levels 2. No obvious fracture dislocation 3. If radiculopathy is present MRI may be beneficial the neural foramina canals are not evaluated 4. Previous sternotomy. PROCEDURE INTERPRETED AT [facility] [place] DEPARTMENT OF RADIOLOGY Final Report Signed by: Dr. Angel Yang
[2017-05-28 12:15] LABS: Basophils # 0.1 10*3/uL (0.0-0.2); Basophils % 1.3 % (0.0-0.8); Eosinophils # 0.2 10*3/uL (0.0-0.87); Eosinophils % 5.8 % (0.00-10.9); Hematocrit 37.9 VOL% (35.7-47.0); Hemoglobin 12.3 GM/DL (12.0-16.0); Immature Granulocytes % 0.3 %; Immature Granulocytes Absolute 0.01 #; Lymphocytes # 0.6 10*3/uL (1.4-4.0); Mean Corpuscular HGB Conc 32.5 GM/DL (32-36); Mean Corpuscular Hemoglobin 30 PG (27-34); Mean Corpuscular Volume 92.7 FL (87-102); Mean Platelet Volume 11.6 FL (9.6-12.0); Monocytes # 0.2 10*3/uL (0.11-0.8); Monocytes % 5.8 % (1.7-12.7); Neutrophils # 2.7 10*3/uL (1.4-7.4); Neutrophils % 71.8 % (38.7-73.9); Platelet Count 151 T/CUMM (130-400); Red Blood Count 4.09 MC/CUMM (3.8-5.5); Red Cell Distribution Width 14.6 % (9.3-17.3); White Blood Count 3.8 T/CUMM (4-12)
[2017-05-28 12:24] LABS: PT Patient Result 10.6 SECS; Partial Thromboplastin Time 21.5 SECS (0-40)
[2017-05-28] MEDS ORDERED: FUROSEMIDE 40 MG/4 ML VIAL IV STA (12:48)
[2017-05-28] MEDS ORDERED: FUROSEMIDE 100 MG/10 ML VIAL ONE (12:53)
[2017-05-28 12:54] LABS: Alanine Aminotransferase 24 U/L (13-56); Albumin 3.5 G/DL (3.4-5.0); Alkaline Phosphatase 191 U/L (45-117); Aspartate Amino Transferase 33 U/L (0-37); Blood Urea Nitrogen 16 MG/DL (7-18); Calcium 9.2 MG/DL (8.5-10.1); Glucose 92 MG/DL (74-106); Potassium 4.4 MMOL/L (3.5-5.1); Sodium 143 MMOL/L (136-145); Total Protein 6.6 G/DL (6.4-8.3)
[2017-05-28 12:55] LABS: Troponin I Only 0.057 NG/ML (0.00-0.045)
[2017-05-28] MEDS ORDERED: ONDANSETRON 4 MG/2 ML VIAL IV PRN (13:13)
[2017-05-28] MEDS ORDERED: ENOXAPARIN 40 MG/0.4 ML SYRINGE SUBCUT ONE (17:03)
[2017-05-28] MEDS ORDERED: NITROGLYCERIN SL 0.4 MG TABLET SL PRN (17:15)
[2017-05-28] MEDS ORDERED: ASPIRIN 325 MG TABLET PO ONE (17:30)
[2017-05-28] MEDS ORDERED: CYANOCOBALAMIN 1000 MCG/1 ML VIAL IM SCH (17:30)
--- NOTE | 2017-05-28 17:41 | Cardiology History & Physical ---
<Kassandra Babb - Last Filed: 05/28/17 16:21> Assessment and Plan - Time spent with patient Time spent with patient: Greater than 30 minutes (1) Chest pain Status: Acute Current Visit: Yes (2) COPD (chronic obstructive pulmonary disease) Status: Acute Current Visit: Yes (3) Coronary artery disease involving autologous artery coronary bypass graft Status: Acute Current Visit: Yes (4) SVT (supraventricular tachycardia) Status: Acute Current Visit: Yes (5) Paroxysmal a-fib Status: Acute Current Visit: Yes (6) Hypertension Status: Acute Current Visit: Yes (7) Dyslipidemia Status: Acute Current Visit: Yes (8) Tobacco abuse Status: Acute Current Visit: Yes (9) Ischemic cardiomyopathy Status: Acute Current Visit: Yes (10) History of TIA (transient ischemic attack) Status: Acute Current Visit: Yes (11) Shortness of breath Status: Acute Current Visit: Yes History of Present Illness Chief complaint: Chest pain and shortness of breath History of present illness: Intercell Connector Placer: Dr. Mcclendon PCP: Dr. Ann Ms. Allison is a 76 year old female with known history of coronary artery disease, routinely followed by Dr. Mcclendon. Patient has cardiac risk factors significant for advanced age, sedentary lifestyle, known history of coronary artery disease, hyperlipidemia, hypertension, family history of coronary artery disease and former smoker. Patient has a past medical history of COPD with home O2, anxiety, ischemic cardiomyopathy (most recent ejection fraction 35-40% noted per echocardiogram January 2017), atrial fibrillation, TIA, peripheral vascular disease and palpitations. Patient underwent CABG in 1994. These records are not available. Status post non-ST elevation TN with PCI to RCA. Her most recent heart catheterization was performed October 2001 with the following noted: Patent YOUNGER graft to total LAD, vein grafts were occluded. She underwent a PCTA and stent to left circumflex ostium and distal right lesion. Patient was last seen in the cardiology clinic August 2014. Patient was just recently hospitalized January 2017 with acute congestive heart failure exacerbation. At that time, echocardiogram was performed which revealed left ventricular ejection fraction of 35-40%. Bilateral atrial enlargement, mild MR, mild aortic valve sclerosis without stenosis and mild TR was noted. Patient was transported from [facility] for further evaluation of chest discomfort, shortness of breath and elevated heart rate. She reports crushing chest pain and worsening dyspnea on exertion since yesterday. Radiates down her left arm. She reports that her chest pain developed yesterday while she was walking to the bathroom. This lasted approximately 1 hour and was relieved with oxygen and nitroglycerin. She does tell me that she has been experiencing chest discomfort on and off for the past several months which has been relieved with sublingual nitroglycerin. Usually triggered while walking to the bathroom. She reports that she is extremely sedentary. Associated with shortness of breath. She denies associated nausea, vomiting and diaphoresis. However, she does report that she has been experiencing heart palpitations. Upon arrival to [facility] emergency department she was noted to be an SVT, converted with IV Cardizem. Subsequently, she was transferred to [facility] for further evaluation. She has been admitted under cardiology's service and housed on the telemetry unit. Patient was seen and examined on the telemetry unit. She is currently without complaints of chest pain, heaviness and tightness. She reports that her breathing has improved after receiving IV Lasix in the emergency department. EKG reveals ST and T-wave abnormality. BNP 985. Patient's chest pain is concerning for angina as it has exertional component and is relieved with nitroglycerin. Troponin is minimally elevated at 0.057. EKG reveals ST and T- wave abnormality. At this point, I will keep patient n.p.o. and continue to cycle cardiac biomarkers. I will give patient a one-time dose of Lovenox and full dose aspirin. Continue oxygen, aspirin and nitrates. I will keep patient n.p.o. after midnight and further discuss with Dr. Washburn and await his additional recommendations regarding the need for further cardiac workup. She will most likely need cardiac catheterization once her heart failure improves. ASSESSMENT/PLAN: 1. CHEST PAIN - Patient's chest pain is concerning for angina as it has exertional component and is relieved with nitroglycerin. Troponin is minimally elevated at 0.057. EKG benign. At this point, I will keep patient n.p.o. and continue to cycle cardiac biomarkers. I will give patient a one-time dose of Lovenox and full dose aspirin as she did not receive these outlying facility. Continue oxygen, aspirin and nitrates. I will keep patient n.p.o. after midnight and further discuss with Dr. Washburn and await his additional recommendations regarding the need for further cardiac workup. 2. SHORTNESS OF BREATH - This is a chronic issue as patient has COPD and uses home O2. I suspect that this is multifactorial including COPD and congestive heart failure. Patient's BNP is elevated at 985. Most recent ejection fraction noted to be 35- 40%. I will add IV Lasix. 3. ACUTE ON CHRONIC CONGESTIVE HEART FAILURE, SYSTOLIC DYSFUNCTION - This appears to be acute on chronic congestive heart failure. Secondary to systolic dysfunction. [place] heart association class III. At this point, I will add IV Lasix. Monitor strict I's and O's and daily weights. Patient will not need repeat echocardiogram at this time as she does have one more 2017. 4. SVT - Patient had episode of SVT at outlying facility. Converted back to normal sinus rhythm with IV Cardizem. This could be concerning for underlying worsening of her coronary artery disease. At this point, we will continue to monitor patient closely on the court monitor and adjust medications as needed throughout her hospitalization. I will discuss with Dr. Washburn and await his additional recommendations regarding further need for cardiac workup. 5. CORONARY ARTERY DISEASE, STATUS POST CABG - Patient has known history of coronary artery disease and status post CABG in 1994. Had non-ST elevation TN with PCI to RCA. Her most recent heart catheterization was performed October 2001 with the following noted: Patent YOUNGER graft to total LAD, vein grafts were occluded. She underwent a PCTA and stent to left circumflex ostium and distal right lesion. 6. PAF - Patient has history of paroxysmal atrial fibrillation. Chronically anticoagulated with Eliquis. Patient's home medication regimen has been reinitiated. Currently in normal sinus rhythm. Will monitor patient closely on court monitor and make adjustments as needed throughout her hospitalization. 7. COPD - Appears to be clinically stable. No wheezing noted upon exam. 8. HYPERTENSION - Under well control. Home medications have been reinitiated. Will make adjustments as needed throughout her hospitalization. 9. DYSLIPIDEMIA - Lipid lowering agent has been reinitiated. 10.HISTORY OF TIA - Recent history of TIA, thought to be secondary to patient' s paroxysmal atrial fibrillation. Continue Eliquis twice daily. Monitor CBC daily as patient has history of chronic anemia. 11.ISCHEMIC CARDIOMYOPATHY - Echocardiogram 35-40% per recent echo January 2017. ALYSSA inhibitor added to patient's medication regimen. Continue beta-laura, Aldactone and Lasix. Can consider switching to Entresto if needed. 12. Degenerative disc disease Home Medications Medication Instructions Recorded Confirmed Type Escitalopram [Lexapro] 10 mg PO QAM 05/08/16 05/28/17 History Isosorbide Mononitrate [Isosorbide 60 mg PO DAILY 05/08/16 05/28/17 History Mononitrate ER] Loratadine [Claritin] 10 mg PO QOTHER DAY 05/08/16 05/28/17 History Atorvastatin Calcium 80 mg PO QAM 10/04/16 05/28/17 History Apixaban [Eliquis] 2.5 mg PO BID #60 tablet 02/12/17 05/28/17 Rx Furosemide Tab [Lasix Tab] 40 mg PO QAM #30 tablet 03/31/17 05/28/17 Rx Metoprolol Tartrate Tab [Lopressor 100 mg PO BID #60 tablet 03/31/17 05/28/17 Rx Tab] Ranolazine [Ranexa] 500 mg PO BID #0 tablet 03/31/17 05/28/17 Rx Spironolactone [Aldactone] 25 mg PO DAILY #30 tablet 03/31/17 05/28/17 Rx Cyanocobalamin Inj [Vitamin B12 1,000 mcg IM Q30D 05/28/17 05/28/17 History Inj] Mupirocin [Mupirocin 2% Oint] 1 applic TOP BID 05/28/17 05/28/17 History Nitroglycerin Sl Tab [Nitrostat] 0.4 mg SL Q5M PRN 05/28/17 05/28/17 History Pantoprazole Sodium 40 mg PO BID 05/28/17 05/28/17 History Potassium Chloride Cap/Tab [K Dur] 20 meq PO BID 05/28/17 05/28/17 History cephALEXin [Cephalexin] 500 mg PO Q6H 05/28/17 05/28/17 History Allergies Allergy/AdvReac Type Severity Reaction Status Date / Time codeine AdvReac Nausea Verified 03/29/17 22:14 - Constitutional Constitutional: Present: fatigue, lethargy, malaise, weakness, weight gain. Absent: chills, fever(s) - Cardiovascular Cardiovascular: Present: chest pain at rest, chest pain with activity, dyspnea, dyspnea on exertion, radiating jaw, neck or arm pain, orthopnea, palpitations, PND. Absent: edema, lightheadedness - Respiratory Respiratory: Present: cough, dyspnea, dyspnea on exertion. Absent: hemoptysis, wheezing, snoring, pain on inspiration, change in phlegm color - Gastrointestinal Gastrointestinal: Absent: abdominal pain, change in bowel habits, coffee ground emesis, dysphagia, heartburn, hematemesis, hematochezia, melena, nausea, vomiting - Neurological Neurological: Absent: abnormal gait, abnormal speech, behavioral changes, dizziness, syncope Medical,Surgical,& Family Hx - Medical History Cardio: History of: Cardiac Dysrhythmia, CHF (ICM), CAD (CABG and multiple stent ), Hypertension, TN, PVD, Cardiovascular Problems (pvd) Psychological: History of: Anxiety Disorders, Depression Neurology: History of: Dementia, Vertigo No history of: Seizures HEENT: History of: Ear Problem (IROQUOIS), Eye Problem (laser surgery 3 months ago) Endocrine: History of: Dyslipidemia, Thyroid Disorder Respiratory: History of: COPD Renal: History of: Renal Failure (Renal insufficiency) Genitourinary: History of: Recurring Urinary Tract Infections Gastrointestinal: History of: Gastrointestinal Bleed, GI Problems (umbilical hernia) Musculoskeletal: History of: Back/Neck Problems (chronic lower back pain), Osteoporosis - Surgical History Cardiac Surgeries: Sugical HX of: Cardiac Catheterization (stents x5?), Cardiac Surgery (cabg x3) Abdominal Surgeries: Surgical HX of: Cholecystectomy, Colonoscopy, EGD Reproductive Surgeries: Surgical HX of;: Hysterectomy - Family History Family History: Reports;: Family Diabetes, Family Hypertension Denies;: Family Heart Disease - Social History Smoking Status: Unknown if ever smoked Frequency of Alcohol Use: None Type of Drug Use: None Marital Status: Single Lives With:: Alone Functional capacity: independent ambulation Cardiology Physical Exam - Constitutional Vitals: Vital Signs Temp Pulse Resp BP Pulse Ox 97.8 F 70 18 132/57 99 05/28/17 14:32 05/28/17 14:32 05/28/17 14:32 05/28/17 14:32 05/28/17 14:32 Intake and Output 05/28/17 05/28/17 05/28/17 06:59 14:59 22:59 Other: Weight 122 lb Patient Weight 05/29/17 06:59 Weight 122 lb Exam: General: Appears well with no apparent distress. Pleasant and cooperative. Appears comfortable. HEENT: PERRL, normocephalic, atraumatic. Mucous membranes moist. No jaundice noted. Conjunctiva moist and clear, sclerae anicteric Neck: No JVD/HJR, no thyromegaly or lymphadenopathy noted. No carotid bruit appreciated Cardiac: Regular rate and rhythm. Lungs: Rales auscultated at bilateral bases without accessory muscle use to assist the respiratory pattern. Requiring oxygen via nasal cannula Abdomen: Soft, bowel sounds normoactive. Nontender and nondistended. No abdominal bruit or thrill noted. No masses noted. Extremities: No clubbing, cyanosis noted. No edema noted. Upper extremity pulses 2+. Lower extremity pulses 2+. Capillary refill less than 3 seconds. Skin: No unusual lesions or rashes. No skin breakdown appreciated. Neuro: Awake, alert and oriented 3. Moves all extremities well without hemiparesis or paralysis. No essential tremor is appreciated. Result/EKG - Labs CBC & BMP: 05/28/17 11:47 05/28/17 11:47 Lab Results: I have reviewed the past 24 hour labs Labs: Laboratory Results - last 24 hr 05/28/17 05/28/17 05/28/17 11:47 11:47 11:47 WBC RBC Hgb Hct MCV MCH MCHC RDW Plt Count MPV Neut % (Auto) Lymph % (Auto) Story % (Auto) Eos % (Auto) Baso % (Auto) Neut # (Auto) Lymph # (Auto) Story # (Auto) Eos # (Auto) Baso # (Auto) Immature Gran % Nucleated RBC % Immature Gran # Nucleated RBCs # INR 1.0 PT Patient/Control Mix 10.6 Circ Anticoag PTT 21.5 Sodium 143 Potassium 4.4 Chloride 107 Carbon Dioxide 28 Anion Gap 12.4 BUN 16 Creatinine 1.00 GFR Calculation 49 BUN/Creatinine Ratio 16.00 Glucose 92 Calculated Osmolality 285.0 Calcium 9.2 Total Bilirubin 1.30 H AST 33 ALT 24 Alkaline Phosphatase 191 H Total Creatine Kinase 41 CK-MB (CK-2) 2.2 Troponin I 0.057 H B-Natriuretic Peptide 985 H Total Protein 6.6 Albumin 3.5 Globulin 3.1 Albumin/Globulin Ratio 1.1 05/28/17 11:47 WBC 3.8 L RBC 4.09 Hgb 12.3 Hct 37.9 MCV 92.7 MCH 30 MCHC 32.5 RDW 14.6 Plt Count 151 MPV 11.6 Neut % (Auto) 71.8 Lymph % (Auto) 15.0 L Story % (Auto) 5.8 Eos % (Auto) 5.8 Baso % (Auto) 1.3 H Neut # (Auto) 2.7 Lymph # (Auto) 0.6 L Story # (Auto) 0.2 Eos # (Auto) 0.2 Baso # (Auto) 0.1 Immature Gran % 0.3 Nucleated RBC % 0.0 Immature Gran # 0.01 Nucleated RBCs # 0.00 INR PT Patient/Control Mix Circ Anticoag PTT Sodium Potassium Chloride Carbon Dioxide Anion Gap BUN Creatinine GFR Calculation BUN/Creatinine Ratio Glucose Calculated Osmolality Calcium Total Bilirubin AST ALT Alkaline Phosphatase Total Creatine Kinase CK-MB (CK-2) Troponin I B-Natriuretic Peptide Total Protein Albumin Globulin Albumin/Globulin Ratio <Addi Washburn - Last Filed: 05/28/17 18:03> History of Present Illness History of present illness: Cardiology addendum 76-year-old woman admitted with increasing shortness of breath and atypical chest pain. Chest x-ray shows cardiomegaly with early CHF BNP level 985. Trivial troponin bump. Status post three-vessel CABG 1994. Last cardiac cath 2000 showed patent YOUNGER graft to LAD and to occluded vein grafts. Patient underwent circumflex stent and distal RCA stent. Admitted January 2017 with congestive heart failure. Echo showed ejection fraction of 35-40% Patient has COPD and is on nocturnal home O2. Patient has dementia. Her daughter Rosaura was going to take her to [facility] assisted living in [place] on Wednesday Tobacco abuse Chronic anticoagulation on Eliquis 2.5 mg twice daily plan IV Lasix Duo nebs BMP in a.m. O2 as needed Discussed with daughter Rosaura. Cardiology Physical Exam - Constitutional Vitals: Vital Signs Temp Pulse Resp BP Pulse Ox 98.4 F 76 18 146/70 100 05/28/17 15:29 05/28/17 15:29 05/28/17 15:29 05/28/17 15:29 05/28/17 15:29 Intake and Output 05/28/17 05/28/17 05/28/17 07:59 15:59 23:59 Other: Weight 55.338 kg Patient Weight 05/28/17 23:59 Weight 55.338 kg Result/EKG - Labs CBC & BMP: 05/28/17 11:47 05/28/17 11:47 Labs: Laboratory Results - last 24 hr 05/28/17 05/28/17 05/28/17 11:47 11:47 11:47 WBC RBC Hgb Hct MCV MCH MCHC RDW Plt Count MPV Neut % (Auto) Lymph % (Auto) Story % (Auto) Eos % (Auto) Baso % (Auto) Neut # (Auto) Lymph # (Auto) Story # (Auto) Eos # (Auto) Baso # (Auto) Immature Gran % Nucleated RBC % Immature Gran # Nucleated RBCs # INR 1.0 PT Patient/Control Mix 10.6 Circ Anticoag PTT 21.5 Sodium 143 Potassium 4.4 Chloride 107 Carbon Dioxide 28 Anion Gap 12.4 BUN 16 Creatinine 1.00 GFR Calculation 49 BUN/Creatinine Ratio 16.00 Glucose 92 Calculated Osmolality 285.0 Calcium 9.2 Total Bilirubin 1.30 H AST 33 ALT 24 Alkaline Phosphatase 191 H Total Creatine Kinase 41 CK-MB (CK-2) 2.2 Troponin I 0.057 H B-Natriuretic Peptide 985 H Total Protein 6.6 Albumin 3.5 Globulin 3.1 Albumin/Globulin Ratio 1.1 05/28/17 11:47 WBC 3.8 L RBC 4.09 Hgb 12.3 Hct 37.9 MCV 92.7 MCH 30 MCHC 32.5 RDW 14.6 Plt Count 151 MPV 11.6 Neut % (Auto) 71.8 Lymph % (Auto) 15.0 L Story % (Auto) 5.8 Eos % (Auto) 5.8 Baso % (Auto) 1.3 H Neut # (Auto) 2.7 Lymph # (Auto) 0.6 L Story # (Auto) 0.2 Eos # (Auto) 0.2 Baso # (Auto) 0.1 Immature Gran % 0.3 Nucleated RBC % 0.0 Immature Gran # 0.01 Nucleated RBCs # 0.00 INR PT Patient/Control Mix Circ Anticoag PTT Sodium Potassium Chloride Carbon Dioxide Anion Gap BUN Creatinine GFR Calculation BUN/Creatinine Ratio Glucose Calculated Osmolality Calcium Total Bilirubin AST ALT Alkaline Phosphatase Total Creatine Kinase CK-MB (CK-2) Troponin I B-Natriuretic Peptide Total Protein Albumin Globulin Albumin/Globulin Ratio
[2017-05-28 19:40] LABS: Troponin I Only 0.074 NG/ML (0.00-0.045)
[2017-05-28] MEDS: ALBUTEROL/IPRATROPIUM 3 ML NEB RESP TX SCH (19:40)
[2017-05-28] MEDS: APIXABAN 2.5 MG TABLET PO SCH (22:14)
[2017-05-28] MEDS: RANOLAZINE 500 MG TABLET PO SCH (22:14)
[2017-05-28] MEDS: METOPROLOL TARTRATE 100 MG TABLET PO SCH (22:14)
[2017-05-28] MEDS: POTASSIUM CHLORIDE 20 MEQ TABLET PO SCH (22:14)
[2017-05-28] MEDS: PANTOPRAZOLE 40 MG TABLET PO SCH (22:15)
[2017-05-29] MEDS: ALBUTEROL/IPRATROPIUM 3 ML NEB RESP TX SCH ×7 (00:34→23:43)
[2017-05-29 01:50] LABS: Basophils % 0.2 % (0.0-0.8); Hematocrit 35.8 VOL% (35.7-47.0); Hemoglobin 11.9 GM/DL (12.0-16.0); Immature Granulocytes % 0.2 %; Immature Granulocytes Absolute 0.01 #; Lymphocytes # 0.4 10*3/uL (1.4-4.0); Lymphocytes % 9.9 % (21.3-54.2); Mean Corpuscular HGB Conc 33.2 GM/DL (32-36); Mean Corpuscular Hemoglobin 31 PG (27-34); Mean Corpuscular Volume 91.8 FL (87-102); Mean Platelet Volume 11.2 FL (9.6-12.0); Monocytes # 0.3 10*3/uL (0.11-0.8); Monocytes % 6.4 % (1.7-12.7); Neutrophils # 3.5 10*3/uL (1.4-7.4); Neutrophils % 83.3 % (38.7-73.9); Platelet Count 154 T/CUMM (130-400); Red Cell Distribution Width 14.6 % (9.3-17.3); White Blood Count 4.2 T/CUMM (4-12)
[2017-05-29 02:06] LABS: Calcium 8.9 MG/DL (8.5-10.1); Magnesium 2.3 MG/DL (1.8-2.4); Osmolality,Calculated 291.1 MOS/KG (273-304); Potassium 4.7 MMOL/L (3.5-5.1)
[2017-05-29 02:27] LABS: Risk Ratio 3.25; VLDL CHOLESTEROL 17.2 MG/DL
--- NOTE | 2017-05-29 07:21 | EKG Report ---
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
--- NOTE | 2017-05-29 07:22 | EKG Report ---
Stationary ECG Study [facility] Test Date: 05/29/2017 12:23:55 AM Pat Name: PAUL MENDOZA Department: Room: 271 Gender: F Clinical Research Tech: : 1940 Requested by: Kassandra Babb Order Number: [id number] Reading MD: LAKEISHA FRAZIER Intervals [place] Rate: 53 P: 61 CA: 192 QRS: 19 QRSD: 103 T: 142 QT: 474 QTc: 457 Interpretive Statements SINUS BRADYCARDIA LEFT VENTRICULAR HYPERTROPHY WITH REPOLARIZATION ABNORMALITY Electronically Signed On 05-30-17 12:48:52 CDT by LAKEISHA FRAZIER [email or web address]
[2017-05-29] MEDS: FUROSEMIDE 40 MG/4 ML VIAL IV SCH ×2 (08:34→16:51)
[2017-05-29] MEDS: PANTOPRAZOLE 40 MG TABLET PO SCH ×2 (08:35→21:07)
[2017-05-29] MEDS: METOPROLOL TARTRATE 100 MG TABLET PO SCH ×2 (08:35→21:03)
[2017-05-29] MEDS: RANOLAZINE 500 MG TABLET PO SCH ×2 (08:35→21:07)
[2017-05-29] MEDS: APIXABAN 2.5 MG TABLET PO SCH ×2 (08:36→21:07)
[2017-05-29] MEDS: LISINOPRIL 5 MG TABLET PO SCH (08:36)
[2017-05-29] MEDS: ASPIRIN EC 81 MG TABLET PO SCH (08:36)
[2017-05-29] MEDS: ISOSORBIDE MONONITRATE 60 MG TABLET PO SCH (08:36)
[2017-05-29] MEDS: POTASSIUM CHLORIDE 20 MEQ TABLET PO SCH ×2 (08:36→21:07)
[2017-05-29] MEDS: SPIRONOLACTONE 25 MG TABLET PO SCH (08:36)
--- NOTE | 2017-05-29 08:36 | EKG Report ---
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
[2017-05-29] MEDS: ATORVASTATIN 80 MG TABLET PO SCH (08:39)
[2017-05-29] MEDS: ESCITALOPRAM 10 MG TABLET PO SCH (08:39)
[2017-05-29 08:45] LABS: Troponin I Only 0.059 NG/ML (0.00-0.045)
[2017-05-29] MEDS ORDERED: PANTOPRAZOLE 40 MG TABLET PO SCH (09:00)
[2017-05-29] MEDS ORDERED: ISOSORBIDE MONONITRATE 60 MG TABLET PO SCH (09:00)
--- NOTE | 2017-05-29 09:40 | Cardiology Progress Note ---
Cardiology - PN: Subj Interval history: Cardiology note 76 year old woman with shortness of breath and recurrent heart failure. BNP of 985. Feels much better today. No chest pain or shortness of breath. Telemetry shows sinus rhythm O2 sat 98 on 2 L cannula Blood pressure 130/72 Regular rhythm no murmur Decreased breath sounds but fairly clear Abdomen benign No leg edema Lab data today White count 4.2 hemoglobin 11.9 hematocrit 35.8 Sodium 142 potassium 4.7 chloride 102 CO2 32 BUN 30 creatinine 1.40 glucose 131 CPK negative 4 with trivial troponin Impression Status post three-vessel CABG 1994 Last cardiac cath 2000 showed patent YOUNGER graft to LAD and occluded vein grafts. Patient underwent circumflex stent and distal RCA stent. Admitted January 2017 with congestive heart failure. Ejection fraction 35-40% by echo COPD on nocturnal home O2 Dementia patient will be going to [facility] living in [place] when stable Tobacco abuse Chronic anticoagulation Eliquis 2.5 mg twice daily Plan IV Lasix Duo nebs O2 as needed Eliquis 2. milligrams twice daily Metoprolol 100 mg twice daily Lisinopril 5 mg daily Ranexa 500 mg twice daily Spironolactone 25 mg daily Isosorbide 60 mg daily Lipitor 80 mg daily Lexapro 10 mg daily BMP in a.m. Exam (Progress Note) - Constitutional Vitals: Period Temp Pulse Resp BP Sys/Kumar Pulse Ox Last 24 Hr 96.1 F-98.6 F 55-90 16-18 132-146/57-79 95-100 Result/EKG - Labs CBC & BMP: 05/29/17 01:30 05/29/17 01:30 Labs: Laboratory Results - last 24 hr 05/28/17 05/28/17 05/28/17 11:47 11:47 11:47 WBC RBC Hgb Hct MCV MCH MCHC RDW Plt Count MPV Neut % (Auto) Lymph % (Auto) [place] % (Auto) Eos % (Auto) Baso % (Auto) Neut # (Auto) Lymph # (Auto) [place] # (Auto) Eos # (Auto) Baso # (Auto) Immature Gran % Nucleated RBC % Immature Gran # Nucleated RBCs # INR 1.0 PT Patient/Control Mix 10.6 Circ Anticoag PTT 21.5 Sodium 143 Potassium 4.4 Chloride 107 Carbon Dioxide 28 Anion Gap 12.4 BUN 16 Creatinine 1.00 GFR Calculation 49 BUN/Creatinine Ratio 16.00 Glucose 92 Calculated Osmolality 285.0 Calcium 9.2 Magnesium Total Bilirubin 1.30 H AST 33 ALT 24 Alkaline Phosphatase 191 H Total Creatine Kinase 41 CK-MB (CK-2) 2.2 Troponin I 0.057 H B-Natriuretic Peptide 985 H Total Protein 6.6 Albumin 3.5 Globulin 3.1 Albumin/Globulin Ratio 1.1 Triglycerides Cholesterol LDL Cholesterol VLDL Cholesterol HDL Cholesterol Heart Disease Risk Ratio 05/28/17 05/28/17 05/29/17 11:47 18:26 01:30 WBC 3.8 L RBC 4.09 Hgb 12.3 Hct 37.9 MCV 92.7 MCH 30 MCHC 32.5 RDW 14.6 Plt Count 151 MPV 11.6 Neut % (Auto) 71.8 Lymph % (Auto) 15.0 L Rab[place] % (Auto) 5.8 Eos % (Auto) 5.8 Baso % (Auto) 1.3 H Neut # (Auto) 2.7 Lymph # (Auto) 0.6 L [place] # (Auto) 0.2 Eos # (Auto) 0.2 Baso # (Auto) 0.1 Immature Gran % 0.3 Nucleated RBC % 0.0 Immature Gran # 0.01 Nucleated RBCs # 0.00 INR PT Patient/Control Mix Circ Anticoag PTT Sodium Potassium Chloride Carbon Dioxide Anion Gap BUN Creatinine GFR Calculation BUN/Creatinine Ratio Glucose Calculated Osmolality Calcium Magnesium Total Bilirubin AST ALT Alkaline Phosphatase Total Creatine Kinase 44 CK-MB (CK-2) 2.4 Troponin I 0.074 H D B-Natriuretic Peptide Total Protein Albumin Globulin Albumin/Globulin Ratio Triglycerides 86 Cholesterol 179 LDL Cholesterol 104.0 VLDL Cholesterol 17.2 HDL Cholesterol 55 Heart Disease Risk Ratio 3.25 05/29/17 05/29/17 05/29/17 01:30 01:30 01:30 WBC 4.2 RBC 3.90 Hgb 11.9 L Hct 35.8 MCV 91.8 MCH 31 MCHC 33.2 RDW 14.6 Plt Count 154 MPV 11.2 Neut % (Auto) 83.3 H Lymph % (Auto) 9.9 L Rab[place] % (Auto) 6.4 Eos % (Auto) 0.0 Baso % (Auto) 0.2 Neut # (Auto) 3.5 Lymph # (Auto) 0.4 L [place] # (Auto) 0.3 Eos # (Auto) 0.0 Baso # (Auto) 0.0 Immature Gran % 0.2 Nucleated RBC % 0.0 Immature Gran # 0.01 Nucleated RBCs # 0.00 INR PT Patient/Control Mix Circ Anticoag PTT Sodium 142 Potassium 4.7 Chloride 102 Carbon Dioxide 32 Anion Gap 12.7 BUN 32 H D Creatinine 1.40 H GFR Calculation 32 BUN/Creatinine Ratio 22.00 H Glucose 131 H Calculated Osmolality 291.1 Calcium 8.9 Magnesium 2.3 Total Bilirubin AST ALT Alkaline Phosphatase Total Creatine Kinase 53 D CK-MB (CK-2) 2.0 Troponin I 0.060 H B-Natriuretic Peptide Total Protein Albumin Globulin Albumin/Globulin Ratio Triglycerides Cholesterol LDL Cholesterol VLDL Cholesterol HDL Cholesterol Heart Disease Risk Ratio 05/29/17 07:59 WBC RBC Hgb Hct MCV MCH MCHC RDW Plt Count MPV Neut % (Auto) Lymph % (Auto) [place] % (Auto) Eos % (Auto) Baso % (Auto) Neut # (Auto) Lymph # (Auto) Rabun # (Auto) Eos # (Auto) Baso # (Auto) Immature Gran % Nucleated RBC % Immature Gran # Nucleated RBCs # INR PT Patient/Control Mix Circ Anticoag PTT Sodium Potassium Chloride Carbon Dioxide Anion Gap BUN Creatinine GFR Calculation BUN/Creatinine Ratio Glucose Calculated Osmolality Calcium Magnesium Total Bilirubin AST ALT Alkaline Phosphatase Total Creatine Kinase 42 D CK-MB (CK-2) 1.6 Troponin I 0.059 H B-Natriuretic Peptide Total Protein Albumin Globulin Albumin/Globulin Ratio Triglycerides Cholesterol LDL Cholesterol VLDL Cholesterol HDL Cholesterol Heart Disease Risk Ratio
[2017-05-29] MEDS ORDERED: ACETAMINOPHEN 325 MG TABLET PO PRN (10:49)
[2017-05-30] MEDS: ALBUTEROL/IPRATROPIUM 3 ML NEB RESP TX SCH ×5 (04:16→19:55)
[2017-05-30 04:57] LABS: Calcium 9.5 MG/DL (8.5-10.1); Magnesium 2.4 MG/DL (1.8-2.4); Osmolality,Calculated 283.8 MOS/KG (273-304); Potassium 4.8 MMOL/L (3.5-5.1)
[2017-05-30] MEDS ORDERED: LORATADINE 10 MG TABLET PO SCH (09:00)
--- NOTE | 2017-05-30 09:58 | Cardiology Progress Note ---
Cardiology - PN: Subj Interval history: Cardiology note 76-year-old woman admitted with congestive heart failure. Patient feels much better and denies shortness of breath or chest pain. She has been receiving IV Lasix and is now prerenal. BUN 16 creatinine 1.0 on admission. BUN 42 and creatinine 2.0 today. O2 sat 96% on 2 L. Blood pressure 132/76 in the right arm by me. Regular rhythm no murmur Decreased breath sounds but clear. Abdomen benign nontender No leg edema Lab data today Sodium 137 potassium 4.8 chloride 98 CO2 34 BUN up to 42 creatinine up to 2.0 glucose 95 magnesium 2.4 Impression Status post three-vessel CABG 1994 Last cardiac cath 2000 showed patent YOUNGER graft to LAD with occluded vein grafts. Patient underwent circumflex stent and distal RCA stent Admitted January 2017 with congestive heart failure. EF 35-40% by echo COPD on nocturnal home O2 Tobacco abuse Chronic anticoagulation Eliquis 2.5 mg twice daily Dementia. The patient will be going to [facility] living in [place] tomorrow Plan DC IV Lasix DC KCl Recheck BMP in a.m. and restart p.o. Lasix Patient will be discharged to the [facility] assisted-living facility in [place] tomorrow Discussed with daughter Rosaura. Exam (Progress Note) - Constitutional Vitals: Period Temp Pulse Resp BP Sys/Kumar Pulse Ox Last 24 Hr 96.2 F-98.7 F 54-75 16-20 95-121/48-66 94-100 Result/EKG - Labs CBC & BMP: 05/29/17 01:30 05/30/17 03:48 Labs: Laboratory Results - last 24 hr 05/30/17 03:48 Sodium 137 Potassium 4.8 Chloride 98 Carbon Dioxide 34 H Anion Gap 9.8 BUN 42 H Creatinine 2.00 H GFR Calculation 21 BUN/Creatinine Ratio 21.00 H Glucose 95 Calculated Osmolality 283.8 Calcium 9.5 Magnesium 2.4
[2017-05-30] MEDS: FUROSEMIDE 40 MG/4 ML VIAL IV SCH (10:08)
[2017-05-30] MEDS: POTASSIUM CHLORIDE 20 MEQ TABLET PO SCH (10:09)
[2017-05-30] MEDS: ATORVASTATIN 80 MG TABLET PO SCH (10:27)
[2017-05-30] MEDS: LISINOPRIL 5 MG TABLET PO SCH (10:27)
[2017-05-30] MEDS: SPIRONOLACTONE 25 MG TABLET PO SCH (10:27)
[2017-05-30] MEDS: ESCITALOPRAM 10 MG TABLET PO SCH (10:28)
[2017-05-30] MEDS: ISOSORBIDE MONONITRATE 60 MG TABLET PO SCH (10:28)
[2017-05-30] MEDS: METOPROLOL TARTRATE 100 MG TABLET PO SCH ×2 (10:28→20:29)
[2017-05-30] MEDS: RANOLAZINE 500 MG TABLET PO SCH ×2 (10:28→20:28)
[2017-05-30] MEDS: PANTOPRAZOLE 40 MG TABLET PO SCH ×2 (10:29→20:29)
[2017-05-30] MEDS: ASPIRIN EC 81 MG TABLET PO SCH (10:29)
[2017-05-30] MEDS: APIXABAN 2.5 MG TABLET PO SCH ×2 (10:29→20:29)
[2017-05-31] MEDS: ALBUTEROL/IPRATROPIUM 3 ML NEB RESP TX SCH ×4 (00:07→10:22)
[2017-05-31 05:42] LABS: Calcium 8.5 MG/DL (8.5-10.1); Magnesium 2.4 MG/DL (1.8-2.4); Osmolality,Calculated 285.7 MOS/KG (273-304); Potassium 4.5 MMOL/L (3.5-5.1)
--- NOTE | 2017-05-31 08:02 | Physician Query Form ---
CLICK EDIT DOCUMENT TO SELECT QUERY ANSWER --> OK --> SIGN Tara Heaton RN, CCDS Certified Clinical [employer] W) [phone] (f) [phone] [email or web address] PROVIDERS: Make your selection(s) from the choices in EACH section by typing an "x" and enter comments in the comment section. Please use your independent medical judgment in providing your response. This request does not imply that any particular answer is desired or expected. CLINICAL INDICATORS: (Providers should not edit this section) The medical record indicates that the patient was admitted with CHF, creatinine of 1.00 on the 30th that increased to 2.00 on the 2nd, GFR of 49 that decreased to 21 on the 2nd and the patient was treated with IV Lasix. Clarify which of the following most accurately represents the patient's renal status: ( ) Acute kidney injury (non-traumatic) ( ) Acute renal failure ( ) Acute renal failure with underlying Chronic Kidney Disease (CKD) - please provide stage below ( ) Acute renal failure with pathological renal lesion ( ) Acute renal failure with necrosis ( ) tubular ( ) medullary ( ) cortical ( ) CKD - please provide stage below ( ) End Stage Renal Disease ( ) Acute interstitial nephritis ( ) Hepatorenal syndrome ( x) Other, please specify: ( ) Clinically unable to determine Chronic Kidney Disease Stages Source: National Kidney Disease Foundation ( ) Stage I (eGFR > or = 90) ( ) Stage II (eGFR 60 - 89) ( ) Stage III (eGFR 30 - 59) ( ) Stage IV (eGFR 15 - 29) ( ) Stage V (eGFR < 15 or dialysis) COMMENTS: pre renal azotemia due overdiuresis. PLEASE ALSO DOCUMENT RESPONSE IN PROGRESS NOTES AND/OR DISCHARGE SUMMARY Use of terms such as suspected, likely, or probable (associated with a specific diagnosis that is being evaluated, monitored, or treated as if it exists) are acceptable and can be restated in the discharge summary if not ruled out. MTDD
[2017-05-31] MEDS: ISOSORBIDE MONONITRATE 60 MG TABLET PO SCH (08:53)
[2017-05-31] MEDS: PANTOPRAZOLE 40 MG TABLET PO SCH (08:53)
[2017-05-31] MEDS: APIXABAN 2.5 MG TABLET PO SCH (08:54)
[2017-05-31] MEDS: ESCITALOPRAM 10 MG TABLET PO SCH (08:54)
[2017-05-31] MEDS: RANOLAZINE 500 MG TABLET PO SCH (08:54)
[2017-05-31] MEDS: SPIRONOLACTONE 25 MG TABLET PO SCH (08:54)
[2017-05-31] MEDS: ATORVASTATIN 80 MG TABLET PO SCH (08:54)
[2017-05-31] MEDS: ASPIRIN EC 81 MG TABLET PO SCH (08:54)
[2017-05-31] MEDS: LISINOPRIL 5 MG TABLET PO SCH (08:55)
[2017-05-31] MEDS: METOPROLOL TARTRATE 100 MG TABLET PO SCH (08:55)
--- NOTE | 2017-05-31 11:21 | Discharge Summary ---
Hospital Course - Hospital Course Hospital Course: Register Of Wills: Dr. Mcclendon PCP: Dr. Ann Ms. Allison is a 76 year old female with known history of coronary artery disease, routinely followed by Dr. Mcclendon. Patient has cardiac risk factors significant for advanced age, sedentary lifestyle, known history of coronary artery disease, hyperlipidemia, hypertension, family history of coronary artery disease and former smoker. Patient has a past medical history of COPD with home O2, anxiety, ischemic cardiomyopathy (most recent ejection fraction 35-40% noted per echocardiogram January 2017), atrial fibrillation, TIA, peripheral vascular disease and palpitations. Patient underwent CABG in 1994. These records are not available. Status post non-ST elevation LA with PCI to RCA. Her most recent heart catheterization was performed October 2001 with the following noted: Patent YOUNGER graft to total LAD, vein grafts were occluded. She underwent a PCTA and stent to left circumflex ostium and distal right lesion. Patient was last seen in the cardiology clinic August 2014. Patient was transported to our facility from [facility] for further evaluation of chest discomfort, shortness of breath and elevated heart rate. At outlying facility, she was noted to be in SVT with heart rates ranging around 180. She chemically converted with IV Cardizem. Chest x-ray revealed congestive heart failure. BNP 985. Treated with IV diuretics, medication regimen was optimized. ALYSSA inhibitor added to her medication regimen. Creatinine mildly elevated at 1.6 this morning. After discussing with Dr. Sánchez, low dose Lisinopril will be continued at discharge. BMP will be rechecked in [address] Mcclendon's office. Trivial troponin was noted which was thought to be secondary to demand ischemia as well as her acute on chronic congestive heart failure. Given patient's significant cardiac history, she was given the option for left heart catheterization as well as medical management. The patient and her family both opted for medical management. If medical management fails they will then consider undergoing heart catheterization in the future. Lipid panel was checked this admission which revealed an LDL of 104. In order to reach LDL goal, I will add Zetia at discharge as patient is already on high intensity statin. Patient is chronically anticoagulated with Eliquis due to her history of paroxysmal atrial fibrillation. She is currently on low dose, 2.5 mg twice daily due to her history of progressive dementia, advanced age and high fall risk. Patient is anxious for discharge home. Having felt that she has met maximal medical therapy, she will be discharged home in stable condition. Patient has been given a follow-up appointment with Dr. Mcclendon in 2 weeks with CBC, BMP, magnesium and EKG. Patient will be discharged home on her preadmission medications with addition of lisinopril 5 mg p.o. daily and Zetia 10 mg at bedtime. Patient and her family both verbalized understanding of discharge instructions and discharge medications. - Time spent with patient Time with patient DS: Greater than 30 minutes Diagnosis - Discharge Diagnosis (1) Chest pain Status: Resolved (2) COPD (chronic obstructive pulmonary disease) Status: Chronic (3) Coronary artery disease involving autologous artery coronary bypass graft Status: Chronic (4) SVT (supraventricular tachycardia) Status: Resolved (5) Paroxysmal a-fib Status: Chronic (6) Hypertension Status: Chronic (7) Dyslipidemia Status: Chronic (8) Tobacco abuse Status: Chronic (9) Ischemic cardiomyopathy Status: Chronic (10) History of TIA (transient ischemic attack) Status: Chronic (11) Shortness of breath Status: Resolved (12) Systolic dysfunction, left ventricle Status: Chronic (13) Acute on chronic systolic (congestive) heart failure Status: Resolved Specialty Discharge - Follow Up or Referrals Follow up with: Arlen Mcclendon DO [Physician] - 2 Weeks (Appointment with Dr. Mcclendon in 2 weeks with CBC, BMP, magnesium and EKG.) Discharge Plan - Discharge Data Disposition: Disch To Home/Self Care Condition at Discharge: Stable Discharge Diet: heart healthy, low fat, low cholesterol, low salt diet Activity: resume usual activities as tolerated Hygiene: no restrictions Weight Bearing at Discharge: weight bear as tolerated Driving: not until seen by doctor Contact your physician if you experience:: fever over 101, Difficulty voiding, Nausea/Vomiting, Shortness of breath, pain uncontrolled by pain medications - Discharge Medications New Ezetimibe [Zetia] 10 mg PO BEDTIME #30 tablet Aspirin EC Tab 81 mg PO DAILY #30 tablet Lisinopril [Prinivil] 5 mg PO DAILY #30 tablet Continue Loratadine [Claritin] 10 mg PO QOTHER DAY Isosorbide Mononitrate [Isosorbide Mononitrate ER] 60 mg PO DAILY Escitalopram [Lexapro] 10 mg PO QAM Atorvastatin Calcium 80 mg PO QAM Ranolazine [Ranexa] 500 mg PO BID #0 tablet Spironolactone [Aldactone] 25 mg PO DAILY #30 tablet Cyanocobalamin Inj [Vitamin B12 Inj] 1,000 mcg IM Q30D Nitroglycerin Sl Tab [Nitrostat] 0.4 mg SL Q5M PRN PRN Reason: Chest Pain Pantoprazole Sodium 40 mg PO BID Apixaban [Eliquis] 2.5 mg PO BID #60 tablet Metoprolol Tartrate Tab [Lopressor Tab] 100 mg PO BID #60 tablet Furosemide Tab [Lasix Tab] 40 mg PO QAM #30 tablet Potassium Chloride Cap/Tab [K Dur] 20 meq PO BID Discontinued cephALEXin [Cephalexin] 500 mg PO Q6H Mupirocin [Mupirocin 2% Oint] 1 applic TOP BID - Follow Up or Referral - Forms/Instructions Exam - Constitutional Vitals: Period Temp Pulse Resp BP Sys/Kumar Pulse Ox Last 24 Hr 96.8 F-98.2 F 52-74 16-20 105-116/48-65 95-100 Exam: General: Appears well with no apparent distress. Pleasant and cooperative. Appears comfortable. HEENT: PERRL, normocephalic, atraumatic. Mucous membranes moist. No jaundice noted. Conjunctiva moist and clear, sclerae anicteric Neck: No JVD/HJR, no thyromegaly or lymphadenopathy noted. Cardiac: Regular rate and rhythm. Lungs: Clear to auscultation without accessory muscle use to assist the respiratory pattern. Abdomen: Soft, bowel sounds normoactive. Nontender and nondistended. No abdominal bruit or thrill noted. No masses noted. Extremities: No clubbing, cyanosis noted. No edema noted. Upper extremity pulses 2+. Lower extremity pulses 2+. Capillary refill less than 3 seconds. Skin: No unusual lesions or rashes. No skin breakdown appreciated. Neuro: Awake, alert and oriented 3. Moves all extremities well without hemiparesis or paralysis. No essential tremor is appreciated. Discharge Results Labs on day of discharge: Labs from last 24 hours 05/31/17 04:12 Sodium 138 Potassium 4.5 Chloride 102 Carbon Dioxide 28 Anion Gap 12.5 BUN 43 H Creatinine 1.60 H GFR Calculation 27 BUN/Creatinine Ratio 26.00 H Glucose 98 Calculated Osmolality 285.7 Calcium 8.5 Magnesium 2.4 - Imaging and Cardiology Procedure: Chest x-ray: report reviewed by me DS: Provider Date of admission: 05/28/17 13:11 Primary care physician: . No PCP Attending physician on admission: Arlen Mcclendon DO Discharging clinician: Kassandra Babb NP Expected date of discharge: 05/31/17
[2017-05-31 12:07] VITALS: BP 106/54
[2017-05-31] MEDS ORDERED: EZETIMIBE 10 MG TABLET PO SCH (21:00)
== END 2017-05-31 13:00 | disposition home health service (06) | DRG 293 ==
LOC: EDBD → EDUNIT# → N.ED 10:26 → N.EDINP 13:11 → N.TELES 14:09
PROVIDERS: ADMIT Internal Medicine Cardiovascular Disease; ATTEND Internal Medicine Cardiovascular Disease

== ENCOUNTER 2018-03-27 12:09 | Inpatient (IN) ==
[2018-03-27 14:27] LABS: Basophils % 0.5 % (0.0-0.8); Eosinophils # 0.3 10*3/uL (0.0-0.87); Eosinophils % 3.5 % (0.00-10.9); Hematocrit 37.3 VOL% (35.7-47.0); Immature Granulocytes % 0.4 %; Immature Granulocytes Absolute 0.03 #; Lymphocytes # 0.6 10*3/uL (1.4-4.0); Lymphocytes % 7.8 % (21.3-54.2); Mean Corpuscular HGB Conc 32.2 GM/DL (32-36); Mean Corpuscular Hemoglobin 30 PG (27-34); Mean Corpuscular Volume 93.5 FL (87-102); Mean Platelet Volume 11.2 FL (9.6-12.0); Monocytes # 0.7 10*3/uL (0.11-0.8); Monocytes % 8.4 % (1.7-12.7); Neutrophils # 6.3 10*3/uL (1.4-7.4); Neutrophils % 79.4 % (38.7-73.9); Platelet Count 224 T/CUMM (130-400); Red Blood Count 3.99 MC/CUMM (3.8-5.5); Red Cell Distribution Width 16.5 % (9.3-17.3)
[2018-03-27 14:45] LABS: Lactic Acid 0.7 MMOL/L (0.4-2.0)
[2018-03-27 15:06] LABS: Albumin 3.6 G/DL (3.4-5.0); Calcium 9.3 MG/DL (8.5-10.1); Osmolality,Calculated 298.5 MOS/KG (273-304); Potassium 5.7 MMOL/L (3.5-5.1)
[2018-03-27 15:11] LABS: Apearance,Urine Clear (Clear); Bilirubin,Urine Negative (Negative); Blood, Urine Negative (Negative); Glucose,Urine (UA) Negative (Negative); Ketones,Urine Negative (Negative); Nitrite,Urine Negative (Negative); Protein,Urine Negative; Urine Color Yellow (Yellow)
[2018-03-27] MEDS ORDERED: SODIUM POLYSTYRENE SULFATE 15 GM/60 ML BOTTLE PO STA (15:19)
[2018-03-27] MEDS ORDERED: SODIUM CHLORIDE 0.9% 500 ML IV STA (15:19)
[2018-03-27] MEDS ORDERED: ONDANSETRON 4 MG/2 ML VIAL IV PRN (16:01)
[2018-03-27] MEDS ORDERED: ACETAMINOPHEN 325 MG TABLET PO PRN (16:01)
[2018-03-27] MEDS ORDERED: SODIUM POLYSTYRENE SULFATE 15 GM/60 ML BOTTLE ONE (16:04)
[2018-03-27] MEDS ORDERED: HEPARIN 5,000 UNIT/1 ML VIAL IV ONE (16:07)
[2018-03-27] MEDS ORDERED: SODIUM CHLORIDE 0.9% 1,000 ML IV SCH (16:30)
[2018-03-27 16:32] LABS: PT Patient Result 10.6 SECS; Partial Thromboplastin Time 31.3 SECS (0-40)
[2018-03-27] MEDS ORDERED: NITROGLYCERIN SL 0.4 MG TABLET SL PRN (16:58)
[2018-03-27] MEDS: traMADol 50 MG TABLET PO PRN (17:54)
[2018-03-27] MEDS: cefTRIAXone 1,000 MG in SYRINGE 1 EACH IV SCH (17:54)
[2018-03-27] MEDS: MORPHINE 4 MG/1 ML VIAL IV PRN (18:40)
[2018-03-27] MEDS: METOPROLOL TARTRATE 100 MG TABLET PO SCH (21:58)
[2018-03-27] MEDS: GABAPENTIN 100 MG CAPSULE PO SCH (21:58)
[2018-03-27] MEDS: DONEPEZIL 5 MG TABLET PO SCH (21:58)
[2018-03-27] MEDS: HEPARIN DRIP 25,000 UNITS/500 ML PREMIX IV SCH (21:58)
[2018-03-28] MEDS: MORPHINE 4 MG/1 ML VIAL IV PRN ×4 (01:05→16:28)
[2018-03-28] MEDS: LEVOTHYROXINE 50 MCG TABLET PO SCH (07:00)
[2018-03-28 07:19] LABS: Basophils % 0.4 % (0.0-0.8); Eosinophils # 0.3 10*3/uL (0.0-0.87); Eosinophils % 3.4 % (0.00-10.9); Hematocrit 33.8 VOL% (35.7-47.0); Hemoglobin 10.9 GM/DL (12.0-16.0); Immature Granulocytes % 0.5 %; Immature Granulocytes Absolute 0.04 #; Lymphocytes # 0.7 10*3/uL (1.4-4.0); Lymphocytes % 7.6 % (21.3-54.2); Mean Corpuscular HGB Conc 32.2 GM/DL (32-36); Mean Corpuscular Hemoglobin 30 PG (27-34); Mean Corpuscular Volume 93.1 FL (87-102); Mean Platelet Volume 11.7 FL (9.6-12.0); Monocytes # 0.6 10*3/uL (0.11-0.8); Monocytes % 7.5 % (1.7-12.7); Neutrophils # 6.9 10*3/uL (1.4-7.4); Neutrophils % 80.6 % (38.7-73.9); Platelet Count 227 T/CUMM (130-400); Red Blood Count 3.63 MC/CUMM (3.8-5.5); Red Cell Distribution Width 16.7 % (9.3-17.3); White Blood Count 8.5 T/CUMM (4-12)
[2018-03-28 08:38] LABS: Bilirubin,Total 0.7 MG/DL (0.2-1.0); Calcium 8.8 MG/DL (8.5-10.1); Osmolality,Calculated 297.4 MOS/KG (273-304); Potassium 3.8 MMOL/L (3.5-5.1); Total Protein 7.5 G/DL (6.4-8.3)
[2018-03-28] MEDS ORDERED: LISINOPRIL 5 MG TABLET PO SCH (09:00)
[2018-03-28] MEDS: FUROSEMIDE 40 MG TABLET PO SCH (13:16)
[2018-03-28] MEDS: GABAPENTIN 100 MG CAPSULE PO SCH ×2 (13:16→21:34)
[2018-03-28] MEDS: METOPROLOL TARTRATE 100 MG TABLET PO SCH (13:16)
[2018-03-28] MEDS ORDERED: amLODIPine 5 MG TABLET PO PRN (13:33)
[2018-03-28] MEDS: SERTRALINE 25 MG TABLET PO SCH (13:57)
[2018-03-28] MEDS: ATORVASTATIN 80 MG TABLET PO SCH (13:57)
[2018-03-28] MEDS: CYANOCOBALAMIN 500 MCG TABLET PO SCH (13:58)
[2018-03-28] MEDS: PANTOPRAZOLE 40 MG TABLET PO SCH (13:58)
[2018-03-28] MEDS: traMADol 50 MG TABLET PO PRN ×2 (14:34→21:33)
[2018-03-28] MEDS: SODIUM CHLORIDE 0.9% 1,000 ML IV SCH (15:39)
[2018-03-28] MEDS: cefTRIAXone 1,000 MG in SYRINGE 1 EACH IV SCH (16:33)
[2018-03-28 16:48] LABS: Apearance,Urine CLEAR (Clear); Bilirubin,Urine Negative (Negative); Blood, Urine Negative (Negative); Glucose,Urine (UA) Negative (Negative); Ketones,Urine Negative (Negative); Nitrite,Urine Negative (Negative); Protein,Urine Negative; RBC,Urine 1 /HPF (0-4); Squamous Epithelial Cell,Urine Occasional /HPF (0-10); Urine Color Yellow (Yellow); Urine Specific Gravity 1.011 (1.001-1.035); Urine Urobilinogen < 2.0 EU/DL (0.2-1.0); WBC,Urine 1 /HPF (0-6)
[2018-03-28] MEDS: MEPERIDINE 50 MG TABLET PO PRN (19:01)
[2018-03-28] MEDS: DONEPEZIL 5 MG TABLET PO SCH (21:34)
[2018-03-29] MEDS: HEPARIN DRIP 25,000 UNITS/500 ML PREMIX IV SCH ×2 (00:59→18:01)
[2018-03-29] MEDS: MORPHINE 4 MG/1 ML VIAL IV PRN ×7 (01:00→18:53)
[2018-03-29] MEDS: SODIUM CHLORIDE 0.9% 1,000 ML IV SCH ×3 (04:07→16:46)
[2018-03-29] MEDS: LEVOTHYROXINE 50 MCG TABLET PO SCH (06:12)
[2018-03-29] MEDS: PANTOPRAZOLE 40 MG TABLET PO SCH (08:53)
[2018-03-29] MEDS: CYANOCOBALAMIN 500 MCG TABLET PO SCH (08:53)
[2018-03-29] MEDS: GABAPENTIN 100 MG CAPSULE PO SCH ×2 (08:53→20:35)
[2018-03-29] MEDS: SERTRALINE 25 MG TABLET PO SCH (08:53)
[2018-03-29] MEDS: ATORVASTATIN 80 MG TABLET PO SCH ×2 (08:53→20:35)
[2018-03-29] MEDS ORDERED: MIDAZOLAM 2 MG/2 ML VIAL IV ONE (09:00)
[2018-03-29] MEDS ORDERED: fentaNYL 100 MCG/2 ML VIAL IV ONE (09:00)
[2018-03-29 09:16] LABS: Calcium 8.7 MG/DL (8.5-10.1); Osmolality,Calculated 295.1 MOS/KG (273-304); Potassium 3.6 MMOL/L (3.5-5.1)
[2018-03-29] MEDS ORDERED: fentaNYL 100 MCG/2 ML VIAL ONE (13:08)
[2018-03-29] MEDS ORDERED: HEPARIN/NACL 0.9% 2 UNITS/ML 2,000 ML IV ONE (13:09)
[2018-03-29] MEDS ORDERED: MIDAZOLAM 2 MG/2 ML VIAL ONE (13:09)
[2018-03-29 13:29] LABS: Troponin I Only 0.073 NG/ML (0.00-0.045)
[2018-03-29] MEDS ORDERED: MORPHINE 10 MG/1 ML VIAL ONE (14:52)
[2018-03-29] MEDS ORDERED: NITROGLYCERIN SL 0.4 MG TABLET SL ONE (15:03)
[2018-03-29] MEDS: cefTRIAXone 1,000 MG in SYRINGE 1 EACH IV SCH (18:04)
[2018-03-29] MEDS: NITROGLYCERIN 2% OINT 1 INCH/GM PACK TOP SCH (18:07)
[2018-03-29] MEDS: ASPIRIN EC 81 MG TABLET PO SCH (18:09)
[2018-03-29 18:18] LABS: CKMB % 2.6 %
[2018-03-29 18:21] LABS: Troponin I Only 0.246 NG/ML (0.00-0.045)
[2018-03-29] MEDS: METOPROLOL TARTRATE 25 MG TABLET PO SCH (20:35)
[2018-03-29] MEDS: DONEPEZIL 5 MG TABLET PO SCH (20:35)
[2018-03-29 20:58] LABS: Basophils % 0.5 % (0.0-0.8); Eosinophils # 0.1 10*3/uL (0.0-0.87); Eosinophils % 2.3 % (0.00-10.9); Hematocrit 26.9 VOL% (35.7-47.0); Hemoglobin 8.3 GM/DL (12.0-16.0); Immature Granulocytes % 0.2 %; Immature Granulocytes Absolute 0.01 #; Lymphocytes # 0.3 10*3/uL (1.4-4.0); Lymphocytes % 6.5 % (21.3-54.2); Mean Corpuscular HGB Conc 30.9 GM/DL (32-36); Mean Corpuscular Hemoglobin 29 PG (27-34); Mean Corpuscular Volume 95.4 FL (87-102); Mean Platelet Volume 11.3 FL (9.6-12.0); Monocytes # 0.4 10*3/uL (0.11-0.8); Monocytes % 8.1 % (1.7-12.7); Neutrophils # 3.6 10*3/uL (1.4-7.4); Neutrophils % 82.4 % (38.7-73.9); Platelet Count 145 T/CUMM (130-400); Red Blood Count 2.82 MC/CUMM (3.8-5.5); Red Cell Distribution Width 16.3 % (9.3-17.3); White Blood Count 4.3 T/CUMM (4-12)
[2018-03-29] MEDS: traMADol 50 MG TABLET PO PRN (21:12)
[2018-03-29 21:47] LABS: CKMB % 5.6 %
[2018-03-29 21:50] LABS: Troponin I Only 1.22 NG/ML (0.00-0.045)
[2018-03-30] MEDS: SODIUM CHLORIDE 0.9% 1,000 ML IV SCH ×3 (00:20→16:27)
[2018-03-30] MEDS: NITROGLYCERIN 2% OINT 1 INCH/GM PACK TOP SCH ×2 (00:20→05:13)
[2018-03-30 01:18] LABS: Basophils % 0.4 % (0.0-0.8); Eosinophils # 0.1 10*3/uL (0.0-0.87); Eosinophils % 2.5 % (0.00-10.9); Hematocrit 26.6 VOL% (35.7-47.0); Hemoglobin 8.3 GM/DL (12.0-16.0); Immature Granulocytes % 0.4 %; Immature Granulocytes Absolute 0.02 #; Lymphocytes # 0.3 10*3/uL (1.4-4.0); Lymphocytes % 5.8 % (21.3-54.2); Mean Corpuscular HGB Conc 31.2 GM/DL (32-36); Mean Corpuscular Hemoglobin 30 PG (27-34); Mean Corpuscular Volume 95.7 FL (87-102); Mean Platelet Volume 11.6 FL (9.6-12.0); Monocytes # 0.5 10*3/uL (0.11-0.8); Monocytes % 8.8 % (1.7-12.7); Neutrophils # 4.2 10*3/uL (1.4-7.4); Neutrophils % 82.1 % (38.7-73.9); Platelet Count 146 T/CUMM (130-400); Red Blood Count 2.78 MC/CUMM (3.8-5.5); Red Cell Distribution Width 16.4 % (9.3-17.3); White Blood Count 5.1 T/CUMM (4-12)
[2018-03-30 01:47] LABS: Calcium 8.3 MG/DL (8.5-10.1); Osmolality,Calculated 290.7 MOS/KG (273-304); Potassium 3.6 MMOL/L (3.5-5.1)
[2018-03-30] MEDS: traMADol 50 MG TABLET PO PRN ×2 (02:39→21:14)
[2018-03-30] MEDS: MORPHINE 4 MG/1 ML VIAL IV PRN ×4 (05:21→22:34)
[2018-03-30] MEDS ORDERED: METOPROLOL TARTRATE 25 MG TABLET PO SCH (10:30)
[2018-03-30] MEDS: FUROSEMIDE 40 MG TABLET PO SCH (11:13)
[2018-03-30] MEDS: CYANOCOBALAMIN 500 MCG TABLET PO SCH (11:13)
[2018-03-30] MEDS: ASCORBIC ACID 500 MG TABLET PO SCH ×2 (11:14→21:15)
[2018-03-30] MEDS: LEVOTHYROXINE 50 MCG TABLET PO SCH (11:14)
[2018-03-30] MEDS: ASPIRIN EC 81 MG TABLET PO SCH (11:14)
[2018-03-30] MEDS: PANTOPRAZOLE 40 MG TABLET PO SCH (11:14)
[2018-03-30] MEDS: SERTRALINE 25 MG TABLET PO SCH (11:14)
[2018-03-30] MEDS: GABAPENTIN 100 MG CAPSULE PO SCH ×2 (11:14→21:15)
[2018-03-30] MEDS: POTASSIUM CHLORIDE 20 MEQ TABLET PO SCH (11:15)
[2018-03-30] MEDS: ISOSORBIDE MONONITRATE 30 MG TABLET PO SCH (11:15)
[2018-03-30] MEDS: METOPROLOL TARTRATE 25 MG TABLET PO SCH (11:16)
[2018-03-30] MEDS: CLOPIDOGREL 75 MG TABLET PO SCH (13:56)
[2018-03-30] MEDS: cefTRIAXone 1,000 MG in SYRINGE 1 EACH IV SCH (16:30)
[2018-03-30] MEDS: HEPARIN DRIP 25,000 UNITS/500 ML PREMIX IV SCH (17:30)
[2018-03-30] MEDS: DONEPEZIL 5 MG TABLET PO SCH (21:15)
[2018-03-30] MEDS: ATORVASTATIN 80 MG TABLET PO SCH (21:15)
[2018-03-30] MEDS: METOPROLOL TARTRATE 50 MG TABLET PO SCH (21:15)
[2018-03-31] MEDS: SODIUM CHLORIDE 0.9% 1,000 ML IV SCH ×3 (00:34→17:42)
[2018-03-31 01:34] LABS: Basophils % 0.3 % (0.0-0.8); Eosinophils # 0.1 10*3/uL (0.0-0.87); Eosinophils % 1.7 % (0.00-10.9); Hematocrit 25.5 VOL% (35.7-47.0); Hemoglobin 8.5 GM/DL (12.0-16.0); Immature Granulocytes % 0.7 %; Immature Granulocytes Absolute 0.04 #; Lymphocytes # 0.4 10*3/uL (1.4-4.0); Lymphocytes % 5.9 % (21.3-54.2); Mean Corpuscular HGB Conc 33.3 GM/DL (32-36); Mean Corpuscular Hemoglobin 31 PG (27-34); Mean Corpuscular Volume 91.7 FL (87-102); Mean Platelet Volume 11.3 FL (9.6-12.0); Monocytes # 0.5 10*3/uL (0.11-0.8); Monocytes % 8.3 % (1.7-12.7); Neutrophils % 83.1 % (38.7-73.9); Platelet Count 208 T/CUMM (130-400); Red Blood Count 2.78 MC/CUMM (3.8-5.5); Red Cell Distribution Width 16.6 % (9.3-17.3); White Blood Count 6.1 T/CUMM (4-12)
[2018-03-31 01:58] LABS: Calcium 8.2 MG/DL (8.5-10.1); Osmolality,Calculated 292.7 MOS/KG (273-304); Potassium 3.4 MMOL/L (3.5-5.1)
[2018-03-31] MEDS: MORPHINE 4 MG/1 ML VIAL IV PRN ×3 (02:44→10:29)
[2018-03-31] MEDS: LEVOTHYROXINE 50 MCG TABLET PO SCH (06:19)
[2018-03-31] MEDS: CLOPIDOGREL 75 MG TABLET PO SCH (09:21)
[2018-03-31] MEDS: ISOSORBIDE MONONITRATE 30 MG TABLET PO SCH (09:21)
[2018-03-31] MEDS: FUROSEMIDE 40 MG TABLET PO SCH (09:21)
[2018-03-31] MEDS: CYANOCOBALAMIN 500 MCG TABLET PO SCH (09:21)
[2018-03-31] MEDS: ASPIRIN EC 81 MG TABLET PO SCH (09:21)
[2018-03-31] MEDS: POTASSIUM CHLORIDE 20 MEQ TABLET PO SCH (09:21)
[2018-03-31] MEDS: PANTOPRAZOLE 40 MG TABLET PO SCH (09:21)
[2018-03-31] MEDS: SERTRALINE 25 MG TABLET PO SCH (09:21)
[2018-03-31] MEDS: GABAPENTIN 100 MG CAPSULE PO SCH ×2 (09:21→21:27)
[2018-03-31] MEDS: METOPROLOL TARTRATE 50 MG TABLET PO SCH ×2 (09:21→21:26)
[2018-03-31] MEDS: ASCORBIC ACID 500 MG TABLET PO SCH ×2 (09:27→21:27)
[2018-03-31] MEDS: traMADol 50 MG TABLET PO PRN ×2 (10:09→21:26)
[2018-03-31] MEDS: cefTRIAXone 1,000 MG in SYRINGE 1 EACH IV SCH (16:57)
[2018-03-31] MEDS: ATORVASTATIN 80 MG TABLET PO SCH (21:26)
[2018-03-31] MEDS: DONEPEZIL 5 MG TABLET PO SCH (21:27)
[2018-03-31] MEDS: MEPERIDINE 50 MG TABLET PO PRN (23:56)
[2018-04-01 06:00] LABS: Calcium 8.2 MG/DL (8.5-10.1); Osmolality,Calculated 300.3 MOS/KG (273-304); Potassium 4.7 MMOL/L (3.5-5.1)
[2018-04-01 06:13] LABS: Basophils % 0.1 % (0.0-0.8); Eosinophils # 0.1 10*3/uL (0.0-0.87); Eosinophils % 1.3 % (0.00-10.9); Immature Granulocytes % 1.6 %; Immature Granulocytes Absolute 0.12 #; Lymphocytes # 0.7 10*3/uL (1.4-4.0); Lymphocytes % 9.2 % (21.3-54.2); Mean Corpuscular Hemoglobin 30 PG (27-34); Mean Corpuscular Volume 95.5 FL (87-102); Mean Platelet Volume 11.1 FL (9.6-12.0); Monocytes # 0.7 10*3/uL (0.11-0.8); Monocytes % 9.6 % (1.7-12.7); Neutrophils # 5.9 10*3/uL (1.4-7.4); Neutrophils % 78.2 % (38.7-73.9); Platelet Count 188 T/CUMM (130-400); Red Blood Count 1.76 MC/CUMM (3.8-5.5); Red Cell Distribution Width 17.2 % (9.3-17.3); White Blood Count 7.6 T/CUMM (4-12)
[2018-04-01 06:20] LABS: Hematocrit 16.8 VOL% (35.7-47.0); Hemoglobin 5.2 GM/DL (12.0-16.0)
[2018-04-01] MEDS ORDERED: SODIUM CHLORIDE 0.9% 1,000 ML IV PRN (06:40)
[2018-04-01] MEDS: SODIUM CHLORIDE 0.9% 1,000 ML IV SCH ×2 (06:57→15:36)
[2018-04-01] MEDS: LEVOTHYROXINE 50 MCG TABLET PO SCH (06:58)
[2018-04-01] MEDS ORDERED: LACTATED RINGERS 500 ML IV ONE (08:00)
[2018-04-01] MEDS: PANTOPRAZOLE 40 MG TABLET PO SCH (08:34)
[2018-04-01] MEDS: SERTRALINE 25 MG TABLET PO SCH (08:34)
[2018-04-01] MEDS: CYANOCOBALAMIN 500 MCG TABLET PO SCH (08:34)
[2018-04-01] MEDS: GABAPENTIN 100 MG CAPSULE PO SCH ×2 (08:35→20:29)
[2018-04-01] MEDS: ASCORBIC ACID 500 MG TABLET PO SCH ×2 (08:35→20:30)
[2018-04-01] MEDS: ASPIRIN EC 81 MG TABLET PO SCH (08:35)
[2018-04-01] MEDS: FUROSEMIDE 40 MG TABLET PO SCH (08:35)
[2018-04-01] MEDS: ISOSORBIDE MONONITRATE 30 MG TABLET PO SCH (08:35)
[2018-04-01] MEDS: POTASSIUM CHLORIDE 20 MEQ TABLET PO SCH (08:35)
[2018-04-01 08:58] LABS: Basophils % 0.1 % (0.0-0.8); Eosinophils # 0.1 10*3/uL (0.0-0.87); Eosinophils % 1.6 % (0.00-10.9); Immature Granulocytes % 1.3 %; Immature Granulocytes Absolute 0.11 #; Lymphocytes # 0.8 10*3/uL (1.4-4.0); Lymphocytes % 9.7 % (21.3-54.2); Mean Corpuscular HGB Conc 33.1 GM/DL (32-36); Mean Corpuscular Hemoglobin 30 PG (27-34); Mean Corpuscular Volume 91.3 FL (87-102); Mean Platelet Volume 11.3 FL (9.6-12.0); Monocytes # 0.8 10*3/uL (0.11-0.8); Monocytes % 9.1 % (1.7-12.7); Neutrophils # 6.4 10*3/uL (1.4-7.4); Neutrophils % 78.2 % (38.7-73.9); Platelet Count 191 T/CUMM (130-400); Red Blood Count 1.72 MC/CUMM (3.8-5.5); Red Cell Distribution Width 17.4 % (9.3-17.3); White Blood Count 8.2 T/CUMM (4-12)
[2018-04-01 09:03] LABS: Hematocrit 15.7 VOL% (35.7-47.0); Hemoglobin 5.2 GM/DL (12.0-16.0)
[2018-04-01 15:16] LABS: Hematocrit 27.1 VOL% (35.7-47.0)
[2018-04-01 15:20] LABS: Hemoglobin 8.5 GM/DL (12.0-16.0)
[2018-04-01 16:29] LABS: Calcium 8.3 MG/DL (8.5-10.1); Osmolality,Calculated 299.4 MOS/KG (273-304); Potassium 4.8 MMOL/L (3.5-5.1)
[2018-04-01] MEDS: cefTRIAXone 1,000 MG in SYRINGE 1 EACH IV SCH (17:51)
[2018-04-01] MEDS: ATORVASTATIN 80 MG TABLET PO SCH (20:28)
[2018-04-01] MEDS: METOPROLOL TARTRATE 25 MG TABLET PO SCH (20:29)
[2018-04-01] MEDS: DONEPEZIL 5 MG TABLET PO SCH (20:29)
[2018-04-01] MEDS: traMADol 50 MG TABLET PO PRN (20:29)
[2018-04-02 04:59] LABS: Basophils % 0.3 % (0.0-0.8); Eosinophils # 0.3 10*3/uL (0.0-0.87); Eosinophils % 4.3 % (0.00-10.9); Hematocrit 24.8 VOL% (35.7-47.0); Immature Granulocytes % 0.9 %; Immature Granulocytes Absolute 0.06 #; Lymphocytes # 0.6 10*3/uL (1.4-4.0); Mean Corpuscular HGB Conc 32.3 GM/DL (32-36); Mean Corpuscular Hemoglobin 29 PG (27-34); Mean Corpuscular Volume 88.9 FL (87-102); Mean Platelet Volume 11.1 FL (9.6-12.0); Monocytes # 0.7 10*3/uL (0.11-0.8); Monocytes % 9.4 % (1.7-12.7); NRBC # 0.02 10*3/uL; Neutrophils # 5.3 10*3/uL (1.4-7.4); Neutrophils % 76.1 % (38.7-73.9); Platelet Count 163 T/CUMM (130-400); Red Blood Count 2.79 MC/CUMM (3.8-5.5); Red Cell Distribution Width 18.1 % (9.3-17.3)
[2018-04-02] MEDS: SODIUM CHLORIDE 0.9% 1,000 ML IV SCH ×2 (05:30→08:45)
[2018-04-02] MEDS: MORPHINE 4 MG/1 ML VIAL IV PRN ×2 (05:30→14:53)
[2018-04-02 05:33] LABS: Calcium 8.3 MG/DL (8.5-10.1); Osmolality,Calculated 298.4 MOS/KG (273-304); Potassium 4.4 MMOL/L (3.5-5.1)
[2018-04-02] MEDS: LEVOTHYROXINE 50 MCG TABLET PO SCH (06:14)
[2018-04-02] MEDS ORDERED: MAGNESIUM SULF RIDER 2 GM in PREMIX 1 EACH IV ONE (08:25)
[2018-04-02] MEDS ORDERED: SODIUM CHLORIDE 0.9% 1,000 ML IV PRN (08:27)
[2018-04-02] MEDS: CYANOCOBALAMIN 500 MCG TABLET PO SCH (08:28)
[2018-04-02] MEDS: POTASSIUM CHLORIDE 20 MEQ TABLET PO SCH (08:28)
[2018-04-02] MEDS: GABAPENTIN 100 MG CAPSULE PO SCH ×2 (08:28→21:14)
[2018-04-02] MEDS: ASPIRIN EC 81 MG TABLET PO SCH (08:28)
[2018-04-02] MEDS: METOPROLOL TARTRATE 25 MG TABLET PO SCH ×2 (08:28→21:10)
[2018-04-02] MEDS: FUROSEMIDE 40 MG TABLET PO SCH (08:28)
[2018-04-02] MEDS: ISOSORBIDE MONONITRATE 30 MG TABLET PO SCH (08:28)
[2018-04-02] MEDS: SERTRALINE 25 MG TABLET PO SCH (08:28)
[2018-04-02] MEDS: ASCORBIC ACID 500 MG TABLET PO SCH ×2 (08:28→21:09)
[2018-04-02] MEDS: PANTOPRAZOLE 40 MG TABLET PO SCH (08:28)
[2018-04-02] MEDS: traMADol 50 MG TABLET PO PRN ×2 (08:36→21:09)
[2018-04-02] MEDS: DEXTROSE 5% NACL 0.45% 1,000 ML IV SCH (08:54)
[2018-04-02] MEDS: cefTRIAXone 1,000 MG in SYRINGE 1 EACH IV SCH (17:39)
[2018-04-02] MEDS: DONEPEZIL 5 MG TABLET PO SCH (21:09)
[2018-04-02] MEDS: ATORVASTATIN 80 MG TABLET PO SCH (21:09)
[2018-04-03 05:02] LABS: Basophils % 0.4 % (0.0-0.8); Eosinophils # 0.2 10*3/uL (0.0-0.87); Eosinophils % 3.7 % (0.00-10.9); Hemoglobin 8.3 GM/DL (12.0-16.0); Immature Granulocytes % 1.1 %; Immature Granulocytes Absolute 0.06 #; Lymphocytes # 0.6 10*3/uL (1.4-4.0); Lymphocytes % 11.7 % (21.3-54.2); Mean Corpuscular HGB Conc 31.9 GM/DL (32-36); Mean Corpuscular Hemoglobin 28 PG (27-34); Mean Corpuscular Volume 88.4 FL (87-102); Mean Platelet Volume 10.9 FL (9.6-12.0); Monocytes # 0.6 10*3/uL (0.11-0.8); Monocytes % 10.4 % (1.7-12.7); Neutrophils # 3.9 10*3/uL (1.4-7.4); Neutrophils % 72.7 % (38.7-73.9); Platelet Count 155 T/CUMM (130-400); Red Blood Count 2.94 MC/CUMM (3.8-5.5); Red Cell Distribution Width 17.7 % (9.3-17.3); White Blood Count 5.4 T/CUMM (4-12)
[2018-04-03 05:29] LABS: Calcium 8.3 MG/DL (8.5-10.1); Osmolality,Calculated 292.8 MOS/KG (273-304); Potassium 3.7 MMOL/L (3.5-5.1)
[2018-04-03] MEDS: LEVOTHYROXINE 50 MCG TABLET PO SCH (06:06)
[2018-04-03] MEDS: CYANOCOBALAMIN 500 MCG TABLET PO SCH (08:23)
[2018-04-03] MEDS: SERTRALINE 25 MG TABLET PO SCH (08:24)
[2018-04-03] MEDS: traMADol 50 MG TABLET PO PRN (08:24)
[2018-04-03] MEDS: GABAPENTIN 100 MG CAPSULE PO SCH ×2 (08:24→21:10)
[2018-04-03] MEDS: METOPROLOL TARTRATE 25 MG TABLET PO SCH ×2 (08:24→21:10)
[2018-04-03] MEDS: POTASSIUM CHLORIDE 20 MEQ TABLET PO SCH (08:24)
[2018-04-03] MEDS: ASCORBIC ACID 500 MG TABLET PO SCH ×2 (08:24→21:10)
[2018-04-03] MEDS: PANTOPRAZOLE 40 MG TABLET PO SCH (08:25)
[2018-04-03] MEDS: FUROSEMIDE 40 MG TABLET PO SCH (08:25)
[2018-04-03] MEDS: ASPIRIN EC 81 MG TABLET PO SCH (08:25)
[2018-04-03] MEDS: ISOSORBIDE MONONITRATE 30 MG TABLET PO SCH (08:25)
[2018-04-03] MEDS: DEXTROSE 5% NACL 0.45% 1,000 ML IV SCH (08:49)
[2018-04-03] MEDS: MORPHINE 4 MG/1 ML VIAL IV PRN ×3 (10:24→23:22)
[2018-04-03] MEDS: cefTRIAXone 1,000 MG in SYRINGE 1 EACH IV SCH (18:09)
[2018-04-03] MEDS: DONEPEZIL 5 MG TABLET PO SCH (21:10)
[2018-04-03] MEDS: ATORVASTATIN 80 MG TABLET PO SCH (21:10)
[2018-04-04] MEDS: MORPHINE 4 MG/1 ML VIAL IV PRN ×3 (03:11→15:01)
[2018-04-04] MEDS: DEXTROSE 5% NACL 0.45% 1,000 ML IV SCH (03:15)
[2018-04-04 05:23] LABS: Basophils % 0.2 % (0.0-0.8); Eosinophils # 0.2 10*3/uL (0.0-0.87); Eosinophils % 3.3 % (0.00-10.9); Hematocrit 26.9 VOL% (35.7-47.0); Immature Granulocytes % 0.7 %; Immature Granulocytes Absolute 0.04 #; Lymphocytes # 0.6 10*3/uL (1.4-4.0); Lymphocytes % 10.5 % (21.3-54.2); Mean Corpuscular HGB Conc 33.5 GM/DL (32-36); Mean Corpuscular Hemoglobin 29 PG (27-34); Mean Corpuscular Volume 86.5 FL (87-102); Mean Platelet Volume 11.4 FL (9.6-12.0); Monocytes # 0.6 10*3/uL (0.11-0.8); Monocytes % 11.3 % (1.7-12.7); Neutrophils # 4.1 10*3/uL (1.4-7.4); Platelet Count 171 T/CUMM (130-400); Red Blood Count 3.11 MC/CUMM (3.8-5.5); Red Cell Distribution Width 17.9 % (9.3-17.3); White Blood Count 5.5 T/CUMM (4-12)
[2018-04-04 05:48] LABS: Calcium 8.3 MG/DL (8.5-10.1); Osmolality,Calculated 285.1 MOS/KG (273-304); Potassium 3.7 MMOL/L (3.5-5.1)
[2018-04-04] MEDS: LEVOTHYROXINE 50 MCG TABLET PO SCH (06:14)
[2018-04-04] MEDS: ISOSORBIDE MONONITRATE 30 MG TABLET PO SCH (08:39)
[2018-04-04] MEDS: METOPROLOL TARTRATE 25 MG TABLET PO SCH ×2 (08:39→21:04)
[2018-04-04] MEDS: PANTOPRAZOLE 40 MG TABLET PO SCH (08:39)
[2018-04-04] MEDS: CYANOCOBALAMIN 500 MCG TABLET PO SCH (08:39)
[2018-04-04] MEDS: POTASSIUM CHLORIDE 20 MEQ TABLET PO SCH (08:39)
[2018-04-04] MEDS: ASPIRIN EC 81 MG TABLET PO SCH (08:39)
[2018-04-04] MEDS: GABAPENTIN 100 MG CAPSULE PO SCH ×2 (08:39→21:04)
[2018-04-04] MEDS: ASCORBIC ACID 500 MG TABLET PO SCH ×2 (08:39→21:04)
[2018-04-04] MEDS: SERTRALINE 25 MG TABLET PO SCH (08:39)
[2018-04-04] MEDS: FUROSEMIDE 40 MG TABLET PO SCH (08:42)
[2018-04-04] MEDS: cefTRIAXone 1,000 MG in SYRINGE 1 EACH IV SCH (16:25)
[2018-04-04] MEDS: ATORVASTATIN 80 MG TABLET PO SCH (21:03)
[2018-04-04] MEDS: DONEPEZIL 5 MG TABLET PO SCH (21:04)
[2018-04-05] MEDS: MORPHINE 4 MG/1 ML VIAL IV PRN (00:56)
[2018-04-05] MEDS: DEXTROSE 5% NACL 0.45% 1,000 ML IV SCH ×3 (02:09→16:03)
[2018-04-05 05:06] LABS: Basophils % 0.2 % (0.0-0.8); Eosinophils # 0.1 10*3/uL (0.0-0.87); Eosinophils % 2.3 % (0.00-10.9); Hematocrit 28.3 VOL% (35.7-47.0); Hemoglobin 8.9 GM/DL (12.0-16.0); Immature Granulocytes % 0.6 %; Immature Granulocytes Absolute 0.03 #; Lymphocytes # 0.6 10*3/uL (1.4-4.0); Lymphocytes % 10.6 % (21.3-54.2); Mean Corpuscular HGB Conc 31.4 GM/DL (32-36); Mean Corpuscular Hemoglobin 28 PG (27-34); Mean Platelet Volume 11.3 FL (9.6-12.0); Monocytes # 0.5 10*3/uL (0.11-0.8); Monocytes % 9.8 % (1.7-12.7); Neutrophils % 76.5 % (38.7-73.9); Platelet Count 179 T/CUMM (130-400); Red Blood Count 3.18 MC/CUMM (3.8-5.5); White Blood Count 5.2 T/CUMM (4-12)
[2018-04-05 05:43] LABS: Calcium 8.5 MG/DL (8.5-10.1); Osmolality,Calculated 281.4 MOS/KG (273-304)
[2018-04-05] MEDS: LEVOTHYROXINE 50 MCG TABLET PO SCH (06:06)
[2018-04-05] MEDS: ASCORBIC ACID 500 MG TABLET PO SCH ×2 (08:40→22:24)
[2018-04-05] MEDS: PANTOPRAZOLE 40 MG TABLET PO SCH (08:40)
[2018-04-05] MEDS: GABAPENTIN 100 MG CAPSULE PO SCH ×2 (08:40→22:23)
[2018-04-05] MEDS: METOPROLOL TARTRATE 25 MG TABLET PO SCH ×2 (08:40→22:24)
[2018-04-05] MEDS: POTASSIUM CHLORIDE 20 MEQ TABLET PO SCH (08:41)
[2018-04-05] MEDS: CYANOCOBALAMIN 500 MCG TABLET PO SCH (08:41)
[2018-04-05] MEDS: ASPIRIN EC 81 MG TABLET PO SCH (08:41)
[2018-04-05] MEDS: ISOSORBIDE MONONITRATE 30 MG TABLET PO SCH (08:42)
[2018-04-05] MEDS: SERTRALINE 25 MG TABLET PO SCH (08:42)
[2018-04-05] MEDS: FUROSEMIDE 40 MG TABLET PO SCH (08:42)
[2018-04-05] MEDS: MEPERIDINE 50 MG TABLET PO PRN ×2 (08:53→22:38)
[2018-04-05] MEDS: cefTRIAXone 1,000 MG in SYRINGE 1 EACH IV SCH (16:23)
[2018-04-05] MEDS: ATORVASTATIN 80 MG TABLET PO SCH (22:24)
[2018-04-05] MEDS: DONEPEZIL 5 MG TABLET PO SCH (22:25)
[2018-04-06 05:28] LABS: Basophils % 0.2 % (0.0-0.8); Eosinophils # 0.1 10*3/uL (0.0-0.87); Eosinophils % 2.5 % (0.00-10.9); Hematocrit 28.2 VOL% (35.7-47.0); Hemoglobin 9.2 GM/DL (12.0-16.0); Immature Granulocytes % 0.6 %; Immature Granulocytes Absolute 0.03 #; Lymphocytes # 0.6 10*3/uL (1.4-4.0); Lymphocytes % 11.3 % (21.3-54.2); Mean Corpuscular HGB Conc 32.6 GM/DL (32-36); Mean Corpuscular Hemoglobin 29 PG (27-34); Mean Corpuscular Volume 87.6 FL (87-102); Mean Platelet Volume 11.1 FL (9.6-12.0); Monocytes # 0.6 10*3/uL (0.11-0.8); Monocytes % 11.7 % (1.7-12.7); Neutrophils # 3.9 10*3/uL (1.4-7.4); Neutrophils % 73.7 % (38.7-73.9); Platelet Count 182 T/CUMM (130-400); Red Blood Count 3.22 MC/CUMM (3.8-5.5); White Blood Count 5.2 T/CUMM (4-12)
[2018-04-06 06:03] LABS: Calcium 8.2 MG/DL (8.5-10.1); Osmolality,Calculated 278.5 MOS/KG (273-304); Potassium 3.8 MMOL/L (3.5-5.1)
[2018-04-06] MEDS: LEVOTHYROXINE 50 MCG TABLET PO SCH (06:25)
[2018-04-06] MEDS: MEPERIDINE 50 MG TABLET PO PRN (10:20)
[2018-04-06] MEDS: ASCORBIC ACID 500 MG TABLET PO SCH (10:21)
[2018-04-06] MEDS: CYANOCOBALAMIN 500 MCG TABLET PO SCH (10:21)
[2018-04-06] MEDS: GABAPENTIN 100 MG CAPSULE PO SCH (10:21)
[2018-04-06] MEDS: FUROSEMIDE 40 MG TABLET PO SCH (10:21)
[2018-04-06] MEDS: ASPIRIN EC 81 MG TABLET PO SCH (10:21)
[2018-04-06] MEDS: ISOSORBIDE MONONITRATE 30 MG TABLET PO SCH (10:21)
[2018-04-06] MEDS: METOPROLOL TARTRATE 25 MG TABLET PO SCH (10:21)
[2018-04-06] MEDS: PANTOPRAZOLE 40 MG TABLET PO SCH (10:22)
[2018-04-06] MEDS: SERTRALINE 25 MG TABLET PO SCH (10:22)
[2018-04-06] MEDS: POTASSIUM CHLORIDE 20 MEQ TABLET PO SCH (10:22)
[2018-04-06] MEDS: DEXTROSE 5% NACL 0.45% 1,000 ML IV SCH (14:44)
[2018-04-06 16:31] VITALS: BP 128/60
== END 2018-04-06 19:05 | DRG 252 ==
LOC: EDUNIT# → EDBD → N.ED 12:09 → N.EDINP 15:26 → SUATTDRO 15:26 → N.5E 16:22 → N.CC 03-29 16:34 → N.TELEN 04-04 19:33
PROVIDERS: ADMIT Internal Medicine; ATTEND Internal Medicine